=== PATIENT | male | born 1980 | race Caucasian/White ===

== ENCOUNTER → 2017-01-16 | Outpatient (CLI) | payer OTHER ==
[~2017-01-16] MED LIST: ACETAMINOPHEN PO; ACETAMINOPHEN325 MG PEG; ACID CONTROL150 M1 PO; ANTI-DANDRUFF251 ML TOP; CALCIUM CITRATE1 T12 PO; CARDURA2 MG PO; CECLOR; CEFTIN PO; CITRACAL + D CA1 TA1 PO; CITRACAL + D E1 EACH PEG; CLONAZEPAM0.5 MG PEG; COLACE; DEPAKOTE PO; DHEA PO; DIASTAT ACUDIA1 EAC1 PR; DIASTAT10 MG PR; DILANTIN50 MG PEG; DILANTIN50 MG PO; DOXAZOSIN MESYLA4 MG PEG; FLEET ENEMA133 M1 PR; FLOMAX0.4 M1 PO; GAS RELIEF125 MG PEG; GAS-X ULTRA ST180 MG PO; IMMUNOTHERAPY SUBCON; JEVITY 1.5 CAL237 ML PEG; KEPPRA1000 MG PO; KEPPRA500 M2 PO; KEPPRA500 MG PO; KEPPRA750 MG; KLONOPIN; KLONOPIN0.5 M3 PO; KLOR-CON PO; LACTULOSE10 G/15 M2 PO; LACTULOSE10 GM/15 M PEG; LAMICTAL; LAMICTAL PO; LAMOTRIGINE100 MG PEG; LAMOTRIGINE200 MG PEG; LAMOTRIGINE25 M1 PEG; LEVETIRACETAM1000 MG PEG; LUNESTA PO; LYRICA; MELATONIN1 MG PO; MELATONIN5 M1 PEG; MELATONIN5 M1 PO; MILK OF MAGNESIA; MILK OF MAGNESIA PEG; MILK OF MAGNESIA PO; MIRALAX17 GM PO; MYLANTA400 MG; NATURAL SENNA8.6 MG; NEXIUM20 MG PO; ONFI10 MG PEG; ONFI10 MG PO; ONFI20 MG PEG; PANOXYL156 GM TOP; PEG3350510 GM PEG; PHENOBARB PO; PHENOBARBITAL97.2 MG PEG; POTASSIUM CHLO20 ME2 PEG; PRILOSEC; RANITIDINE HCL150 M1 PEG; SABRIL500 M1 PO; SABRIL500 MG PEG; SABRIL500 MG PO; SENNA PO; SENNA-LAX8.6 M1 PO; SENNA8.6 M1 PEG; SINGULAIR PO; SOD BICARBONATE PEG; SODIUM BICARBO650 MG PO; THERA DERM TOP; THERA-TABS M C1 EACH PO; THERAGRAN1 TAB PO; THERAPEUTIC VI1 EACH PO; TOPAMAX PO; TOPICAINE113 GM TOP; TRIPLE ANTIBIOT14 GM TOP; TYLENOL325 M1 PO; VITAMIN D1000 UNI1 PO; VITAMIN D1000 UNIT PEG; WATER3780 ML PEG; ZONEGRAN100 M1 PEG; ZONEGRAN100 M1 PO; ZONEGRAN100 MG; ZYRTEC10 M1 PEG; ZYVOX600 MG PO; [UNRECOGNIZED DRUG - OTHER] PO; [UNRECOGNIZED DRUG - OTHER] PR
--- NOTE | ~2017-01-16 | XA166 ---
[facility] A Service of [facility] RADIOLOGY TEXT RESULTS PATIENT: LUTHER RAMIREZ LOCATION: CIVR : 81 UNIT #: [id number] AGE: [address]: Eliu Salamanca MD SEX: M ORDER DR: [id number] [place] [id number] [facility]. [place], [place] [address] [id number] O MR#: [id number] Acc #: [id number] NAME: LUTHER RAMIREZ : 1980 SEX: M STUDY DATE/TIME: 01/16/2017 11:34 [facility] ROOM: STUDY DESCRIPTION: XA PICC Line Placement WO Port Attending Physician: Eliu Salamanca Sr., M.D. Ordering Physician: Eliu Salamanca Sr., M.D. Primary Care Physician: No Primary Care Physician MEDICAL IMAGING REPORT This report is preliminary unless electronic signature is present EXAM Right-sided PICC line placement INDICATION Need for IV antibiotics in a patient with the history of aspiration pneumonia. PRE-PROCEDURE The procedure was explained to the patient and/or patient patient relations representative including risks, benefits, potential complications and potential for alternative forms of treatment. Informed consent was obtained, and prior to initiating the procedure a formal timeout procedure was performed. PROCEDURE Using full standard sterile barrier technique, including caps, gowns, gloves, masks, as well as sterile skin preparation and standard sterile draping, the right arm was prepped and draped in the usual fashion, and real-time sterile ultrasound guidance was used to localize an arm vein and to confirm vessel patency. A hard copy ultrasound image was recorded. After local anesthesia with 1% Xylocaine, the vein was punctured using real-time sterile ultrasound guidance, and an 0.018 guidewire was advanced into the superior vena cava, using fluoroscopic guidance. A 4-Zambian single lumen PICC was then measured and deployed with the tip positioned in the superior vena cava. The position of the line was documented with a radiographic image. The line was secured in place with an adhesive dressing and an antibiotic patch was applied. Total fluoro time was 0.2 minutes and a single fluoroscopic image was obtained. IMPRESSION Successful placement of a 4-Zambian single lumen PowerPICC via the arm under ultrasound and fluoroscopic guidance. The tip of the PICC is in good position in the superior vena cava. [facility] A Service of [facility] RADIOLOGY TEXT RESULTS PATIENT: LUTHER RAMIREZ LOCATION: [facility] #: [id number] : [birth year] UNIT #: [id number] AGE: [address]: Eliu Salamanca MD SEX: M ORDER DR: Dictated by... Loretta Guevara M.D. THIS IS AN ELECTRONICALLY VERIFIED REPORT Loretta Guevara M.D. at 01/19/2017 5:12 PM AFF/aa TD: 01/19/2017 09:52 JOB #: [id number] MEDICAL IMAGING REPORT COPY
== END | disposition home or self-care (01) ==
LOC: CIVR 10:28
PROC: 02HV33Z Insertion of Infusion Device into Superior Vena Cava, Percutaneous Approach (ICD-10-PCS; principal; 2017-01-16)
DX: Z45.2 Encounter for adjustment and management of vascular access device (principal); B95.62 Methicillin resistant Staphylococcus aureus infection as the cause of diseases classified elsewhere; L03.313 Cellulitis of chest wall
CPT/HCPCS: 76937; 77001; C1751; J1642

== ENCOUNTER → 2017-01-27 | Outpatient (CLI) | payer OTHER ==
--- NOTE | ~2017-01-27 | XA166 ---
[facility] A Service of [facility] RADIOLOGY TEXT RESULTS PATIENT: LUTHER RAMIREZ LOCATION: CIVR : 81 UNIT #: [id number] AGE: [address]: DINAH PIKE SEX: M ORDER DR: [id number] [facility] [address] [facility]. [place], [place] [address] [id number] O MR#: [id number] Acc #: [id number] NAME: LUTHER RAMIREZ : 1980 SEX: M STUDY DATE/TIME: 01/27/2017 12:01 [facility] RO[facility]: STUDY DESCRIPTION: XA PICC Line Placement WO Port Attending Physician: Dinah Pike Ordering Physician: Eliu Salamanca Sr., M.D. Primary Care Physician: No Primary Care Physician MEDICAL IMAGING REPORT This report is preliminary unless electronic signature is present EXAM PICC placement with ultrasound and fluoroscopic guidance HISTORY Venous access needed TECHNIQUE Informed consent was obtained from the patient's instruments sales representative. Full barrier sterile technique was employed via standard protocol. FINDINGS Using full barrier sterile technique and following local anesthesia with 1% Xylocaine, a brachial vein on the right was punctured with ultrasound guidance. Ultrasound was used to confirm vessel patency which was confirmed and permanent ultrasound images were recorded. An 0.018 Guidewire was passed into the superior vena cava under fluoroscopic guidance. A dilator and sheath were placed over the wire. A 4 Mozambican single lumen PICC was measured to 38 cm, cut and deployed with the tip positioned in the mid to lower superior vena cava in satisfactory position. The wire was secured in placed with an antibiotic patch and adhesive dressing. Total fluoroscopy time 0.2 minutes. IMPRESSION Successful placement of a 4 Mozambican single lumen PICC via the right brachial vein above the elbow with ultrasound and fluoroscopic guidance. The tip of the PICC is in good position in the mid to lower superior vena cava. Dictated by... Joseph Barreto M.D. [facility] A Service of [facility] RADIOLOGY TEXT RESULTS PATIENT: LUTHER RAMIREZ LOCATION: CIVR : 81 UNIT #: [id number] AGE: [address]: DINAH PIKE SEX: M ORDER DR: THIS IS AN ELECTRONICALLY VERIFIED REPORT Joseph Barreto M.D. at 01/28/2017 4:42 PM ROB/chato TD: 01/27/2017 16:49 JOB #: [id number] MEDICAL IMAGING REPORT COPY
== END | disposition home or self-care (01) ==
LOC: CIVR 09:42
DX: Z45.2 Encounter for adjustment and management of vascular access device (principal); Z79.2 Long term (current) use of antibiotics
CPT/HCPCS: 76937; 77001; J1642

== ENCOUNTER → 2017-01-28 | Outpatient (CLI) | payer OTHER ==
--- NOTE | ~2017-01-28 | XA166 ---
[facility] A Service of [facility] RADIOLOGY TEXT RESULTS PATIENT: LUTHER RAMIREZ LOCATION: CIVR : 81 UNIT #: [id number] AGE: [address]: DINAH REYES SEX: M ORDER DR: [id number] [facility] [address] [place], [place] [address] [id number] O MR#: [id number] Acc #: [id number] NAME: LUTHER RAMIREZ : 1980 SEX: M STUDY DATE/TIME: 01/28/2017 12:51 UNIT: CIVR ROOM: STUDY DESCRIPTION: XA PICC Line Placement WO Port Attending Physician: Dinah Reyes Referring Physician: Dinah Reyes Ordering Physician: Casey Reis M.D. Primary Care Physician: Dinah Reyes MEDICAL IMAGING REPORT This report is preliminary unless electronic signature is present EXAM PICC placement with ultrasound and fluoroscopic guidance HISTORY The patient's PICC was pulled by the patient earlier today. TECHNIQUE The procedure was explained to the patient's father and informed consent was obtained. Full barrier sterile technique was employed via standard protocol. Using full barrier sterile technique and following local anesthesia with 1% Xylocaine, a brachial vein was punctured above the elbow on the right with ultrasound guidance. Ultrasound was used to confirm vessel patency, which was confirmed, and permanent ultrasound images were recorded. An 0.018 guidewire was passed into the superior vena cava under fluoroscopic guidance. A dilator and sheath were placed over the wire. A 4-Citizen Of [place] single-lumen PICC was measured to 37 cm, cut and deployed, with the tip positioned in the upper right atrium. The line was secured in place with an adhesive dressing and antibiotic patch. Total fluoroscopy time is 0.2 minutes with a total dose of 1 mGy. IMPRESSION Successful placement of a 4-Citizen Of [place] single-lumen PICC via the right brachial vein above the elbow with ultrasound and fluoroscopic guidance. Dictated by... Joseph Barreto M.D. THIS IS AN ELECTRONICALLY VERIFIED REPORT Joseph Barreto M.D. at 01/29/2017 8:39 AM ROB/tammy TD: 01/28/2017 20:46 [facility] A Service of [facility] RADIOLOGY TEXT RESULTS PATIENT: LUTHER RAMIREZ [facility] #: [id number] : 81 UNIT #: [id number] AGE: [address]: DINAH REYES SEX: M ORDER DR: JOB #: [id number] MEDICAL IMAGING REPORT COPY
== END | disposition home or self-care (01) ==
LOC: CIVR 11:46
DX: Z45.2 Encounter for adjustment and management of vascular access device (principal); Z79.2 Long term (current) use of antibiotics
CPT/HCPCS: 76937; 77001; C1751; J1642

== ENCOUNTER 2017-02-15 11:42 | Emergency (ER) | payer OTHER ==
[~2017-02-15 11:42] MED LIST changes: -ACETAMINOPHEN325 MG PEG; -CITRACAL + D E1 EACH PEG; -CLONAZEPAM0.5 MG PEG; -DIASTAT ACUDIA1 EAC1 PR; -DILANTIN50 MG PEG; -DOXAZOSIN MESYLA4 MG PEG; -GAS RELIEF125 MG PEG; -JEVITY 1.5 CAL237 ML PEG; -LACTULOSE10 GM/15 M PEG; -LAMOTRIGINE100 MG PEG; -LAMOTRIGINE200 MG PEG; -LAMOTRIGINE25 M1 PEG; -LEVETIRACETAM1000 MG PEG; -MELATONIN5 M1 PEG; -MILK OF MAGNESIA PEG; -ONFI10 MG PEG; -ONFI20 MG PEG; -PEG3350510 GM PEG; -PHENOBARBITAL97.2 MG PEG; -POTASSIUM CHLO20 ME2 PEG; -RANITIDINE HCL150 M1 PEG; -SABRIL500 MG PEG; -SENNA8.6 M1 PEG; -SOD BICARBONATE PEG; -THERAPEUTIC VI1 EACH PO; -TOPICAINE113 GM TOP; -TRIPLE ANTIBIOT14 GM TOP; -VITAMIN D1000 UNIT PEG; -WATER3780 ML PEG; -ZONEGRAN100 M1 PEG; -ZYRTEC10 M1 PEG
== END 2017-02-15 13:55 ==
LOC: CED 11:42
DX: S01.82XA Laceration with foreign body of other part of head, initial encounter (principal); J45.909 Unspecified asthma, uncomplicated; W19.XXXA Unspecified fall, initial encounter; Y92.89 Other specified places as the place of occurrence of the external cause
CPT/HCPCS: 12011; 99283

== ENCOUNTER 2017-03-07 14:43 | Emergency (ER) | payer OTHER ==
--- NOTE | ~2017-03-07 | CT71 ---
[facility] A Service of [facility] RADIOLOGY TEXT RESULTS PATIENT: LUTHER RAMIREZ LOCATION: [facility] : 81 UNIT #: [id number] AGE: [address]: Isaias Sullivan MD SEX: M ORDER DR: [id number] [facility] [address] [facility]. [place], [place] [address] [id number] E MR#: [id number] Acc #: [id number] NAME: LUTHER RAMIREZ : 1980 SEX: M STUDY DATE/TIME: 03/07/2017 15:08 UNIT: [facility] ROOM: STUDY DESCRIPTION: CT Head Wo Contrast Attending Physician: Isaias Sullivan M.D. Ordering Physician: Isaias Sullivan M.D. Primary Care Physician: Dinahroseline Lutzsola [facility] IMAGING REPORT This report is preliminary unless electronic signature is present EXAM Head CT without contrast. DATE OF EXAM 03/07/2017 HISTORY Head trauma, status post fall today, headache with laceration over the left eyebrow, status post seizure. TECHNIQUE NOTE: This CT exam was performed with one or more of the following radiation dose reduction techniques: automatic exposure control, adjustment of mA and/or kV according to patient size, and iterative reconstruction. FINDINGS Multiple axial images were obtained from the skull base to vertex without intravenous contrast administration. Prior right frontotemporal craniotomy is noted. 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 There is mild generalized atrophy. There is no evidence of midline shift. No intra or extraaxial fluid collections are seen. The visualized paranasal sinuses are clear. IMPRESSION Prior right frontal toe temporal craniotomy with encephalomalacia in the right temporal lobe and the region of the anterior aspect of the corpus callosum. No acute intracranial abnormality is seen. Dictated by... David Fortune M.D. [facility] A Service of [facility] RADIOLOGY TEXT RESULTS PATIENT: LUTHER RAMIREZ LOCATION: [facility] : 81 UNIT #: [id number] AGE: [address]: Isaias Sullivan MD SEX: M ORDER DR: THIS IS AN ELECTRONICALLY VERIFIED REPORT David Fortune M.D. at 03/08/2017 1:12 PM HARLAN/lilibeth TD: 03/07/2017 17:45 JOB #: [id number] MEDICAL IMAGING REPORT Page 1 of 1 COPY
--- NOTE | ~2017-03-07 | CT101 ---
[facility] A Service [facility] RADIOLOGY TEXT RESULTS PATIENT: LUTHER RAMIREZ LOCATION: [facility] : 81 UNIT #: [id number] AGE: [address]: Isaias Sullivan MD SEX: M ORDER DR: [id number] [place] [id number] [facility]. [place], [place] [address] [id number] E MR#: [id number] Acc #: [id number] NAME: LUTHER RAMIREZ : 1980 SEX: M STUDY DATE/TIME: 03/07/2017 15:11 UNIT: [facility] ROOM: STUDY DESCRIPTION: CT Maxillofacial Area Wo Cont Attending Physician: Isaias Sullivan M.D. Ordering Physician: Isaias Sullivan M.D. Primary Care Physician: Dinah Lutzsola [facility] IMAGING REPORT This report is preliminary unless electronic signature is present EXAM CT facial bones without contrast. DATE OF EXAM 03/07/2017 HISTORY Fell and hit head today. Laceration over left eye. TECHNIQUE NOTE: This CT exam was performed with one or more of the following radiation dose reduction techniques: automatic exposure control, adjustment of mA and/or kV according to patient size, and iterative reconstruction. FINDINGS CT facial bones without contrast is slightly degraded by motion. No fractures identified. No opaque soft tissue foreign body. The paranasal sinuses are clear. No sinus opacification or air-fluid level. Moderate nasal septal deviation to the left. IMPRESSION 1. No fractures identified. 2. No opaque soft tissue foreign body. 3. Moderate nasal septal deviation to the left. Dictated by... Juan Luis Parry M.D. THIS IS AN ELECTRONICALLY VERIFIED REPORT Juan Luis Parry M.D. at 03/07/2017 11:23 PM [facility] A Service [facility] RADIOLOGY TEXT RESULTS PATIENT: LUTHER RAMIREZ LOCATION: [facility] : 81 UNIT #: [id number] AGE: [address]: Isaias Sullivan MD SEX: M ORDER DR: Marisa TD: 03/07/2017 18:22 JOB #: [id number] MEDICAL IMAGING REPORT Page 1 of 1 COPY
--- NOTE | ~2017-03-07 | CT52 ---
[facility] Service [facility] RADIOLOGY TEXT RESULTS PATIENT: LUTHER RAMIREZ LOCATION: [facility] : 81 UNIT #: [id number] AGE: [address]: Isaias Sullivan MD SEX: M ORDER DR: [id number] [place] [id number] [facility]. [place], [place] [address] [id number] E MR#: [id number] Acc #: [id number] NAME: LUTHER RAMIREZ : 1980 SEX: M STUDY DATE/TIME: 03/07/2017 15:18 UNIT: [facility] ROOM: STUDY DESCRIPTION: CT Cervical Spine Wo Cont Attending Physician: Isaias Sullivan M.D. Ordering Physician: Isaias Sullivan M.D. Primary Care Physician: Dinahroseline Lutzsola [facility] IMAGING REPORT This report is preliminary unless electronic signature is present EXAM CT cervical spine without contrast. DATE OF EXAM 03/07/2017 HISTORY Fell today. Neck pain. TECHNIQUE NOTE: This CT exam was performed with one or more of the following radiation dose reduction techniques: automatic exposure control, adjustment of mA and/or kV according to patient size, and iterative reconstruction. FINDINGS CT cervical spine without contrast demonstrates satisfactory cervical alignment. No fractures identified. Sensitivity is partly limited by slight motion artifact. Small left posterolateral marginal osteophyte at C3-4 causes minimal left outlet foraminal narrowing. No fracture, disc space narrowing or subluxation. No precervical soft tissue swelling. IMPRESSION 1. No acute finding. 2. No fracture. 3. Small left posterolateral marginal osteophyte at C3-4 causes minimal left outlet foraminal narrowing. Dictated by... Juan Luis Parry M.D. [facility] A Service [facility] RADIOLOGY TEXT RESULTS PATIENT: LUTHER RAMIREZ LOCATION: [facility] : 81 UNIT #: [id number] AGE: [address]: Isaias Sullivan MD SEX: M ORDER DR: THIS IS AN ELECTRONICALLY VERIFIED REPORT Juan Luis Parry M.D. at 03/07/2017 11:23 PM CHANG/lilibeth TD: 03/07/2017 18:25 JOB #: [id number] MEDICAL IMAGING REPORT Page 1 of 1 COPY
== END 2017-03-07 19:16 | disposition home or self-care (01) ==
LOC: CED 14:43
DX: S01.112A Laceration without foreign body of left eyelid and periocular area, initial encounter (principal); Z79.899 Other long term (current) drug therapy; Z88.2 Allergy status to sulfonamides; Z88.1 Allergy status to other antibiotic agents; Z88.8 Allergy status to other drugs, medicaments and biological substances; W01.0XXA Fall on same level from slipping, tripping and stumbling without subsequent striking against object, initial encounter; Y92.129 Unspecified place in nursing home as the place of occurrence of the external cause
CPT/HCPCS: 12013; 70450; 70486; 72125; 99284

== ENCOUNTER 2017-03-13 16:07 | Inpatient (IN) | payer OTHER ==
--- NOTE | ~2017-03-13 | CO ---
Unit #: [id number] #: [id number] Patient: LUTHER DUNN [id number] [address] [place], [place] [address] [id number] I MR#: [id number] NAME: LUTHER DUNN ROOM: [facility] Age: 37 Sex: M Admission Date: 03/13/2017 : 1980 Attending Physician: Dave Hansen M.D. Primary Care Physician: Dinah Pike Consultation Date: 03/25/2017 CONSULTATION REPORT REASON FOR CONSULTATION Evaluate for a PEG tube placement for bypass feeds. MANAGER TRAFFIC Dr. De La Vega. Thank you very much for asking us to see Mr. Dunn. HISTORY OF PRESENT ILLNESS He is a 36-year-old white male who is significantly mentally retarded and was a resident of [place]. He has multiple medical problems. He was admitted for pneumonia. He has been admitted several times in the past. He had a swallowing study today which revealed silent aspiration and recommendation was made for bypass feeds via a feeding tube. The patient presents at this time for further evaluation. PAST MEDICAL HISTORY Seizure disorder, Lennex-Gastout syndrome, cerebral palsy, mental retardation, aspiration pneumonia, craniotomy, myringotomy, lobectomy, G-tube placement in the past, KELP GATHERER shunt placement and removal. SOCIAL HISTORY [place]. FAMILY HISTORY Noncontributory. ALLERGIES Sulfa, Carbamazepine, ampicillin, Bactrim and gabapentin. MEDICATIONS Please see medication reconciliation sheet. PHYSICAL EXAMINATION GENERAL APPEARANCE: A well-developed white male who appears to be in no apparent distress, awake, alert and oriented. VITAL SIGNS: Temperature 98.8. Pulse 91. Respiration 19. Blood pressure 122/69. NECK: Supple. No thyromegaly or adenopathy. BACK: No CVA or spinous tenderness. ABDOMEN: Flat, soft, nontender. Multiple well-healed incisions. DIAGNOSTIC STUDIES LABORATORY: Studies reveal a normal BMP, white count of 10.3, hemoglobin Unit #: [id number] #: [id number] Patient: LUTHER DUNN 9.5, hematocrit 29.8 and normal coags. IMPRESSION We agree with the need for bypass feeds for nutritional support. Dr. De La Vega has discussed with the patient's family regarding PEG tube placement. I will proceed tomorrow or Thom. Thank you very much for this consultation. We appreciate it. Dictated by... Joe Mohr TD: 03/26/2017 06:17 JOB #: [id number] CONSULTATION REPORT Page 1 of 1 X Jose De Jesus Thomas MD X CONSULTATION REPORT
--- NOTE | ~2017-03-13 | CR72 ---
[facility] A Service of [facility] RADIOLOGY TEXT RESULTS PATIENT: LUTHER RAMIREZ LOCATION: [address] : [birth year] UNIT #: [id number] AGE: [address]: Dave Hansen MD SEX: M ORDER DR: [id number] [facility] [address] [place], [place] [address] [id number] I MR#: [id number] Acc #: [id number] NAME: LUTHER RAMIREZ : 1980 SEX: M STUDY DATE/TIME: 03/20/2017 4:14 UNIT: [facility] ROOM: [facility] STUDY DESCRIPTION: CR Chest Single View Portable Attending Physician: Dave Hansen M.D. Ordering Physician: Vitor Scherer M.D. Primary Care Physician: Dinah Pike MEDICAL IMAGING REPORT This report is preliminary unless electronic signature is present EXAM Single view chest INDICATIONS Shortness of air and respiratory failure. 7-day duration. FINDINGS Single portable AP view of the chest compared to 03/19/2017 and 03/18/2017. Support lines and tubes are unchanged. Heart and mediastinal contours are stable. Bibasilar airspace opacities and/or effusions are similar to the prior study. No pneumothorax. IMPRESSION No interval change. Dictated by... Jeremy Santana M.D. THIS IS AN ELECTRONICALLY VERIFIED REPORT Jeremy Santana M.D. at 03/20/2017 8:08 AM Albina TD: 03/20/2017 07:21 JOB #: [id number] MEDICAL IMAGING REPORT Page 1 of 1 COPY
--- NOTE | ~2017-03-13 | DS ---
Unit #: [id number] #: [id number] Patient: LUTHER DUNN [id number] [address] [place], [place] [address] [id number] I MR#: [id number] NAME: LUTHER DUNN ROOM: [facility] Age: 37 Sex: M Admission Date: 03/13/2017 : 1980 Discharge Date: 03/30/2017 Attending Physician: Dave Hansen M.D. Primary Care Physician: Dinah Pike DISCHARGE SUMMARY FINAL DIAGNOSES 1. Fever which has resolved status post line change. 2. Pseudomonas pneumoniae status post treatment. 3. Diarrhea, Clostridium difficile is negative. 4. Dysphagia status post percutaneous endoscopic gastrostomy placement by Dr. Scott. 5. Seizure disorder. 6. History of Lc-Gastaut syndrome. 7. History of cerebral palsy. 8. History of profound mental retardation. 9. History of aspiration pneumonitis in the past. DISCHARGE MEDICATIONS Please note, continue home medication because all the antibiotics have been discontinued at this time. The patient has completed the course of antibiotics. Discharge medications are: 1. Potassium 20 mEq daily. 2. Calcium citrate one tablet daily. 3. Melatonin 4 mg at bedtime. 4. Multivitamin daily. 5. Sabril 1,500 mg b.i.d. 6. PanOxyl 156 g topically b.i.d. 7. Ranitidine 150 mg b.i.d. 8. Fleet Enema as needed. 9. Cardura 2 mg at bedtime. 10. Phenytoin 150 mg b.i.d. 11. MiraLax 17 g daily. 12. Milk of magnesia 15 mL at bedtime. 13. Diastat p.r.n. basis for seizure. 14. Klonopin 0.5 mg p.o. p.r.n. 15. Phenobarb 64.8 mg at bedtime. 16. Zonegran 300 mg b.i.d. 17. Keppra 1,500 mg every morning and 2,000 mg at bedtime. 18. Lamictal 325 mg b.i.d. 19. Onfi 25 mg b.i.d. Continue home dose. 20. Tylenol 650 mg q.6 p.r.n. 21. Lactulose 30 mL every evening. 22. Flomax 0.4 mg daily. 23. Sodium bicarb 650 mg b.i.d. HOSPITAL COURSE Mr. Luther Dunn is a 76-year-old male who is a resident of [facility], has a history of cerebral palsy, profound mental retardation, seizure disorder, was admitted because of increasing lethargy and Unit #: [id number] #: [id number] Patient: LUTHER DUNN hypoxemic. The patient was admitted to ICU for respiratory failure. The patient was found to have Pseudomonas pneumoniae. Dr. Scherer was consulted and the patient was treated with IV antibiotics. The patient has completed a course of antibiotics. The patient was in ICU for a few days. The patient continued to have aspiration. He failed speech eval, discussed with patient's family and a PEG tube was placed, as family was agreeable. The patient had diarrhea for two to three days. C. diff. was done which was negative. The patient is stable to be discharged back to [facility]. VITAL SIGNS ON DISCHARGE: Blood pressure is 129/82. Respiratory rate 17. Pulse 75. Temperature 98.5. Oxygen saturation 97%. HEAD: Normocephalic. CHEST: Decreased air entry bilateral bases. CARDIOVASCULAR: Regular rhythm. ABDOMEN: PEG tube is in place. DISCHARGE INSTRUCTIONS 1. The patient is being discharged home in stable condition. 2. Follow up pulmonary clinic, Dr. Watkins, in one week. Dictated by... Joe Hawley TD: 03/30/2017 14:10 JOB #: [id number] DISCHARGE SUMMARY Page 1 of 1 X Lisa De La Vega MD X DISCHARGE SUMMARY
--- NOTE | ~2017-03-13 | CR6 ---
[facility] A Service of [facility] RADIOLOGY TEXT RESULTS PATIENT: LUTHER RAMIREZ [facility] [birth year] UNIT #: [id number] AGE: [address]: Dave Hansen MD SEX: M ORDER DR: [id number] [facility] [address] [facility]. [place], [place] [address] [id number] I MR#: [id number] Acc #: [id number] NAME: LUTHER RAMIREZ : 1980 SEX: M STUDY DATE/TIME: 03/13/2017 16:25 UNIT: [facility] ROOM: [id number] STUDY DESCRIPTION: CR Abdomen Portable Sng View Attending Physician: Dave Hansen M.D. Ordering Physician: Ritu Calzada M.D. Primary Care Physician: Dinah Pike MEDICAL IMAGING REPORT This report is preliminary unless electronic signature is present EXAM Portable abdomen HISTORY NG tube placement. FINDINGS The NG tube is coiled within the stomach. Bowel gas pattern is remarkable for a large amount of fecal residue throughout the colon Dictated by... Vitor Madrid M.D. THIS IS AN ELECTRONICALLY VERIFIED REPORT Vitor Madrid M.D. at 03/16/2017 7:20 AM CANDIS/chato TD: 03/13/2017 23:43 JOB #: [id number] MEDICAL IMAGING REPORT Page 1 of 1 COPY
--- NOTE | ~2017-03-13 | CO ---
Unit #: [id number] #: [id number] Patient: LUTHER DUNN [id number] [address] [place], [place] [address] [id number] I MR#: [id number] NAME: LUTHER DUNN ROOM: [facility] Age: 36 Sex: M Admission Date: 03/13/2017 : 1980 Attending Physician: Dave Hansen M.D. Primary Care Physician: Dinah Pike Consultation Date: 03/14/2017 CONSULTATION REPORT REASON FOR CONSULTATION Respiratory failure. HISTORY OF PRESENT ILLNESS Mr. Dunn is a 36-year-old gentleman, who has cerebral palsy, mental retardation, [place]-Gastaut syndrome and severe seizure disorder, who presents with increased lethargy. He apparently was hypoxemic in the emergency room. Chest x-ray suggested pneumonia. He ultimately required intubation. He currently is in the intensive care unit, sedated. Initial trials of intermittent sedation were ineffective and he now is on propofol. PAST MEDICAL HISTORY Severe seizure disorder, [place]-Gastaut syndrome, cerebral palsy, mental retardation, history of right temporal lobectomy. He did have a vagus nerve stimulator, but that has been removed. MEDICATIONS Include Cardura, a variety of bowel prep medications, potassium, Lamictal, Keppra, Onfi, ranitidine, Sabril, Dilantin, Klonopin. ALLERGIES Sulfa, carbamazepine, ampicillin, Ambien, gabapentin, trazodone, unknown reactions. SOCIAL HISTORY He resides at [facility]. FAMILY HISTORY Unobtainable. REVIEW OF SYSTEMS Unobtainable. PHYSICAL EXAMINATION GENERAL: Gentleman appears comfortable on moderate dose of propofol on the ventilator. He has a T-max of 101, fever curve appears to be improved, pulse is 110, respiratory rate is 22, blood pressure is 92/60. HEENT: Pupils are equal, round, and reactive to light. Sclerae anicteric. Head atraumatic. NECK: Supple. No supraclavicular or cervical adenopathy appreciated. Orally intubated. CHEST: Equal breath sounds. A few scattered rhonchi. No definite wheeze or stridor. CARDIAC: Reveals regular rate and rhythm. No pathologic murmur, rub, or Unit #: [id number] #: [id number] Patient: LUTHER DUNN. ABDOMEN: Soft and nontender. No hepatomegaly or rebound. EXTREMITIES: Reveal no clubbing, cyanosis, or edema. No calf tenderness. He does have contractures. Cannot cooperate with a neurologic exam. DIAGNOSTIC STUDIES IMAGING STUDIES: Chest x-ray; ET tube in adequate position. Bilateral infiltrates in left lower lobe greater than right. LABORATORY RESULTS: Initial arterial blood gas; pH is 7.29, pCO2 of 53, pO2 of 274 on the ventilator. Repeat blood gases with minor adjustments; pH 7.34, pCO2 of 45, pO2 of 82 on assist control of 22, 550, 60%, 5 of PEEP. BUN 19, creatinine 0.9. Lactic acid 1.4. INR normal. Cardiac enzymes, normal. White blood cell count of 12.8, hemoglobin 13.3, platelet count 308. Urinalysis fairly unremarkable. Blood cultures performed and are pending. No sputum has been obtained despite an order in the past. Sputum has shown MRSA, sensitive to vancomycin. CARDIOVASCULAR STUDIES: EKG; sinus tachycardia. IMPRESSION 1. Respiratory failure. 2. Pneumonia, consider Gram-negative rods and methicillin-resistant Staphylococcus aureus. 3. Mental retardation/cerebral palsy. 4. Severe seizure disorder, requiring multiple antiepileptics. 5. Constipation, etc. PLAN Mechanical vent for support. Broad-spectrum antibiotics. Panculture. Follow up cultures and adjust antibiotics as needed. Feeding will be started and some of his antiseizure medicines will be restarted as well. Thank you very much for allowing me to participate in the care of Mr. Dunn. Dictated by... Vitor Scherer M.D. DREA/edvin TD: 03/15/2017 01:29 JOB #: [id number] CONSULTATION REPORT Page 1 of 1 X Vitor Scherer MD CONSULTATION REPORT
--- NOTE | ~2017-03-13 | CR72 ---
[facility] A Service of [facility] & [facility] RADIOLOGY TEXT RESULTS PATIENT: LUTHER RAMIREZ LOCATION: [address] : [birth year] UNIT #: [id number] AGE: [address]: Dave Hansen MD SEX: M ORDER DR: [id number] [facility] [address]. [place], [place] [address] [id number] I MR#: [id number] Acc #: [id number] NAME: LUTHER RAMIREZ : 1980 SEX: M STUDY DATE/TIME: 03/15/2017 4:00 UNIT: [facility] ROOM: [facility] STUDY DESCRIPTION: CR Chest Single View Portable Attending Physician: Dave Hansen M.D. Ordering Physician: Vitor Scherer M.D. Primary Care Physician: Dinah Pike MEDICAL IMAGING REPORT This report is preliminary unless electronic signature is present EXAM Portable chest INDICATIONS Follow up endotracheal tube and infiltrates. FINDINGS Today's portable view of the chest is compared with yesterday's study. The endotracheal tube, central venous catheter and nasogastric tube are all stable and the bilateral fairly diffuse infiltrates are unchanged. Dictated by... Andrea Malik M.D. THIS IS AN ELECTRONICALLY VERIFIED REPORT Andrea Malik M.D. at 03/15/2017 9:55 PM FEL/psc TD: 03/15/2017 19:38 JOB #: [id number] MEDICAL IMAGING REPORT Page 1 of 1 COPY
--- NOTE | ~2017-03-13 | CR7 ---
[facility] A Service [facility] RADIOLOGY TEXT RESULTS PATIENT: LUTHER RAMIREZ [facility]: [facility] [birth year] UNIT #: [id number] AGE: [address]: Dave Hansen MD SEX: M ORDER DR: [id number] [place], [place] [address] [id number] I MR#: [id number] Acc #: [id number] NAME: LUTHER RAMIREZ : 1980 SEX: M STUDY DATE/TIME: 03/17/2017 14:30 UNIT: [facility] ROOM: [facility] STUDY DESCRIPTION: CR Abdomen Single AP View Attending Physician: Dave Hansen M.D. Ordering Physician: Lisa De La Vega M.D. Primary Care Physician: Dinah Pike MEDICAL IMAGING REPORT This report is preliminary unless electronic signature is present EXAM AP abdomen. DATE OF EXAM 03/17/2017 INDICATIONS Constipation, abdominal distension for 1 week. COMPARISON 03/13/2017 FINDINGS The bowel gas pattern is nonobstructed. There is a large amount of stool within the rectosigmoid. There is also a large amount of stool in the ascending colon. IMPRESSION Large amount of stool in the rectosigmoid and ascending colon compatible with constipation. Nonobstructed bowel gas pattern. Dictated by... Luther Donohue M.D. THIS IS AN ELECTRONICALLY VERIFIED REPORT Luther Donohue M.D. at 03/18/2017 10:02 AM SANDI/lilibeth TD: 03/17/2017 17:46 JOB #: [id number] MEDICAL IMAGING REPORT [facility] A Service [facility] RADIOLOGY TEXT RESULTS PATIENT: LUTHER RAMIREZ [facility]ATION: [facility] : 81 UNIT #: [id number] AGE: [address]: Dave Hansen MD SEX: M ORDER DR: Page 1 of 1 COPY
--- NOTE | ~2017-03-13 | CR72 ---
[facility] A Service of [facility] & [facility] RADIOLOGY TEXT RESULTS PATIENT: LUTHER RAMIREZ LOCATION: [place] [address]19 : [birth year] UNIT #: [id number] AGE: [address]: Dave Hansen MD SEX: M ORDER DR: [id number] [facility] [address] [place], [place] [address] [id number] I MR#: [id number] Acc #: [id number] NAME: LUTHER RAMIREZ : 1980 SEX: M STUDY DATE/TIME: 03/24/2017 4:58 UNIT: [facility] ROOM: [facility] STUDY DESCRIPTION: CR Chest Single View Portable Attending Physician: Dave Hansen M.D. Ordering Physician: Vitor Scherer M.D. Primary Care Physician: Dinah Pike MEDICAL IMAGING REPORT This report is preliminary unless electronic signature is present EXAM AP portable chest 03/24/2017 HISTORY Respiratory failure. Follow up cardiopulmonary status. TECHNIQUE AP portable chest x-ray. FINDINGS Diffuse patchy pulmonary infiltrates, greatest in the right lung base, unchanged since yesterday. Heart size normal. No visible pneumothorax or pleural effusion. NG tube has been removed. Left IJ central line remains in good position. IMPRESSION Stable portable chest radiograph, unchanged since yesterday. Dictated by... Prosper Quintanilla M.D. THIS IS AN ELECTRONICALLY VERIFIED REPORT Prosper Quintanilla M.D. at 03/24/2017 9:53 PM KATHLEEN/meka TD: 03/24/2017 07:13 JOB #: [id number] MEDICAL IMAGING REPORT Page 1 of 1 COPY
--- NOTE | ~2017-03-13 | CR72 ---
[facility] A Service of [facility] & [facility] RADIOLOGY TEXT RESULTS PATIENT: LUTHER RAMIREZ LOCATION: [address] : [birth year] UNIT #: [id number] AGE: [address]: Dave Hansen MD SEX: M ORDER DR: [id number] [facility] [address]. [place], [place] [address] [id number] I MR#: [id number] Acc #: [id number] NAME: LUTHER RAMIREZ : 1980 SEX: M STUDY DATE/TIME: 03/14/2017 8:45 UNIT: [facility] ROOM: [facility] STUDY DESCRIPTION: CR Chest Single View Portable Attending Physician: Dave Hansen M.D. Ordering Physician: Dave Hansen M.D. Primary Care Physician: Dinah Pike MEDICAL IMAGING REPORT This report is preliminary unless electronic signature is present EXAM Portable chest 03/14/2017 HISTORY Respiratory failure for 1 day. Ventilator. COMPARISON Chest 03/13/2017. FINDINGS Frontal chest demonstrates tubes and lines in stable position. No pneumothorax. No interval improvement in patchy bilateral pulmonary opacities. Heart size and mediastinum are stable. Suspected small left pleural effusion. IMPRESSION 1. Tubes and lines are stable. No pneumothorax. 2. No interval improvement in patchy bilateral pulmonary infiltrates and suspected small left pleural effusion Dictated by... Roldan Borjas M.D. THIS IS AN ELECTRONICALLY VERIFIED REPORT Roldan Borjas M.D. at 03/15/2017 8:13 AM POOJA/chato TD: 03/15/2017 01:59 JOB #: [id number] MEDICAL IMAGING REPORT Page 1 of 1 COPY
--- NOTE | ~2017-03-13 | A ---
[facility] Nutrition Therapy DATE: 03/14/17 Patient: LUTHER RAMIREZ Physician: OLIVE Address: [facility] Room/Bed: [address], Zip: [place] [address] Admit Date: 03/13/17 Date of : [birth year] Height: 5 1.70 Weight: 127 58 NUTRITIONAL ASSESSMENT: REASON: Seen for enteral nutrition recommmendations, intubated Admitting Dx: 36 y/o male admitted from [facility] with SOA, CALVIN PNA PMH: Mental retardation, Cerebral Palsy, Hyrum-Gastraut syndrome, seizure disorder, aspiration PNA, severe dysphagia s/p PEG placement Anthropometrics: Ht: 61", Wt: 58 kg, BMI: 23 (normal) Labs: Glucose 144, no Accucheks at this time Meds: Versed, Nacl, Keppra, Lactulose, Propofol @ 7 ml/hr (185 lipid kcals) I/O & Bowel function: LBM unknown Skin Integrity: Abdominal scars PEG site, non-blancheable redness coccyx/sacrum Estimated Nutrition Needs: 3464-7079 kcals per day (25-30 kcals/kg) 58-70 g protein (1-1.2 g/kg) Fluids consistent with kcal needs or per MD Assessment: Chart reviewed, events noted. Patient from [facility], see admitting dx and PMH as stated above. Patient is currently intubated and sedated with Propofol providing 185 lipid kcals. Patient has hx of severe dysphagia, I believe he is normally on a pureed diet with HTL at [facility] with enteral feeds per PEG, as this is is past nutrition regimen. RD previously assessed on 08/22/16- note reviewed. At that time the patient weighed 57 kg, showing stable weight hx. Currently Jevity 1.5 is running @ 20 ml/hr, goal per order is 40 ml/hr- agree with this goal rate while Propofol is running. See recs below, will follow hospital course. Dx: Inadequate enteral nutrition infusion r/t feeds not yet advanced AEB Jevity 1.5 @ 20 ml/hr (goal 40 ml/hr). Intervention: Increase EN rate to goal Monitoring, Evaluation and Goals: 1. EN consistent with estimated needs. 2. Prevent unintentional weight loss. 3. Labs WNL. [facility] Nutrition Therapy DATE: 03/14/17 Patient: LUTHER PEDROHEMALATHA Physician: OLIVE Address: [facility] Room/Bed: [address], Zip: [place] [address] Admit Date: 03/13/17 Date of : [birth year] Height: 5 1.70 Weight: 127 58 4. GI function WNL. Monitor: Per protocol, criteria to determine if above goals met Recommendations: 1. Agree with Jevity 1.5 goal rate of 40 ml/hr while Propofol is running. This nutrition regimen + 185 lipid kcals from Propofol at current rate will provide 1625 kcals, 61 g protein and 730 ml water. Once at goal rate add free water flushes per MD, suggest 175 ml q 4 hours. 2. If Propofol is D/C increase enteral feeds to new goal rate of 45 ml/hr to provide 1620 kcals, 69 g protein and 821 ml water. Free water flushes per MD, suggest 200 ml QID. 3. If extubated consult NURSE MONITORING to determine safety of PO intake. Advance oral diet per their recs only. If patient is started on an oral diet please consult RD so enteral nutrition needs can be re-calculated. If patient is to remain NPO continue enteral feeds over 24 hours/day as stated above. RD will follow hospital course Moderate nutrition risk Respectfully, Rebecca Hodge, CORI, LD [facility] cc: client file
--- NOTE | ~2017-03-13 | FU ---
[facility] Nutrition Therapy DATE: 03/17/17 Patient: LUTHER RAMIREZ Physician: OLIVE Address: [facility] Room/Bed: [address], Zip: [place] [address] Admit Date: 03/13/17 Date of : [birth year] Height: 5 1.70 Weight: 138 63 NUTRITION MONITORING/FOLLOW-UP: Reason: Enteral nutrition follow up Anthropometrics: Ht: 61" Adm wt: 58 kg BMI: 23 Wt 03/17: 63 kg Labs: Cl- 112 Gluc 112 Ca++ 7.8 Alb 2.1 ALT 9 Meds: Dilantin, lactulose, Propofol @ 8.7 mL/hr, MOM, vitamin D, sodium bicarbonate, Os-julisa + D, MVI, senokot, miralax, D5%, versed I&O's: 3936/2845, last BM unknown Skin: Sutures to left eyebrow Edema: Generalized- BL hands Trace- pedal/ ankle Estimated Nutrition Needs: 9051-4650 kcals (25-30 kcals/kg) 58-70 grams protein (1.0-1.2 grams/kg) Assessment: Chart reviewed, events noted. Pt remains intubated and sedated in the ICU. Propofol is providing an additional 230 kcals from lipids at this time. Of note, the pt's enteral regimen will need to be adjusted based on administration of Dilantin. Pt is receiving Jevity 1.5 at previously recommended goal rate of 40 mL/hr. Per pump history, the pt has received 70% of enteral goal volume over the past 24 hrs. RN reports no tolerance issues at this time. RD spoke with the pt's family, and reports that he does have a h/o PEG; however, he has not been receiving enteral nutrition, and only consuming nutrition PO as of late (Pureed diet with HTL). Family reports that the pt's PO intake is typically adequate. Please see recommendations below. Previous nutrition Dx with updated evidence. Dx: Inadequate enteral nutrition infusion RT enteral nutrition held AEB 70% goal volume received over 24 hrs. -ACTIVE Inadequate enteral nutriti Intervention: 1. Enteral nutrition as recommended below [facility] Nutrition Therapy DATE: 03/17/17 Patient: LUTHER RAMIREZ Physician: OLIVE Address: [facility] Room/Bed: [address], Zip: [place] [address] Admit Date: 03/13/17 Date of : [birth year] Height: 5 1.70 Weight: 138 63 Monitoring, Evaluation and Goals: 1. Enteral nutrition; provide >80% goal volume over 22 hrs 2. Labs; WNL 3. Weight; prevent unintentional weight loss 4. GI; promote bowel regularity Recommendations: 1. Recommending new enteral nutrition goal rate to account for holding EN for one hour before and one hour following administration of Dilantin (enteral nutrition will run for a total of 22 hrs per day). -With the current propofol rate (8.7 mL/hr), recommend Jevity 1.5 @ 40 mL/hr x 22 hrs + 30 mL Prostat once daily to provide: 1650 kcals/ 71 grams protein/ 669 grams protein -When propofol is discontinued, discontinue Prostat and increase Jevity 1.5 to 50 mL/hr x 22 hrs to provide: 1650 kcals/ 70 grams protein/ 836 mL free H20 2. If the pt is extubated, recommend SINGLE NEEDLE OPERATOR evaluation. Status: Pt is at moderate nutritional risk. RD will continue to follow. Respectfully, SHANIKA PAGE RD, LD Food and Nutritional Services [facility] cc: client file
--- NOTE | ~2017-03-13 | OR ---
Unit #: [id number] #: [id number] Patient: LUTHER RAMIREZ [id number] [facility]. [place], [place] [address] [id number] April MR#: [id number] NAME: LUTHER RAMIREZ ROOM: 575 Date of Procedure: 03/27/2017 Admission Date: 03/13/2017 Surgeon: Kaiser Scott III, M.D. : 1980 Attending Physician: Dave Hansen M.D. Primary Care Physician: Dinah Pike OPERATIVE REPORT PREOPERATIVE DIAGNOSIS Need for enteral access. POSTOPERATIVE DIAGNOSIS Need for enteral access. PROCEDURES PERFORMED Esophagogastroduodenoscopy and percutaneous endoscopic gastrostomy tube placement. ANESTHESIA MAC. SPECIMENS None. COMPLICATIONS None apparent. ESTIMATED BLOOD LOSS Minimal. INDICATIONS FOR PROCEDURE This is a 36-year-old gentleman from [place], who has undergone multiple PEG tube placements in the past. Unfortunately, he keeps trying to pull them out. There is a need for enteral access and we were requested to perform feeding tube placement. DESCRIPTION OF PROCEDURE After consent was obtained by his [id number], the endoscopy equipment was brought to the intensive care unit. He was sedated and I passed an EGD scope easily into the esophagus under direct visualization. He had normal peristalsis. No evidence of any erosions or esophagitis. There were no gross lesions in the stomach and no sign of any recent bleeding. The pylorus was patent, and the first and second portions of the duodenum were normal. I then was able to insufflate the stomach. I had good transillumination of the light through the anterior abdominal wall. I did elect to use a prior PEG tube site in case that he pulls this out again that hopefully this portion of the stomach was already scarred up to the abdominal wall, so that there would not be any sort of peritoneal contamination. This area was prepped and draped in standard surgical fashion. I injected the area with 1% plain lidocaine. I passed Unit #: [id number] #: [id number] Patient: LUTHER RAMIREZ a large bore needle into the stomach on the first pass. I was able to grasp the guidewire through the end of that and with a snare through the end of the scope and brought this out through the oropharynx. I then threaded a 20-Latvian gastrostomy tube over the wire and brought it out through the anterior abdominal wall after enlarging the exit site of the guidewire with an 11 blade. Once the tube was in good position, I did place the appropriate attachments. I did trim the tube much shorter than I normally do in order to that it can be better concealed under an abdominal binder, so that he would not pull it out. He tolerated the procedure without any problems. Dictated by... Kaiser Scott III, M.D. VCL/edvin TD: 03/28/2017 16:30 JOB #: [id number] OPERATIVE REPORT Page 1 of 1 X Kaiser Scott III, MD PROCEDURE OPERATIVE NOTE
--- NOTE | ~2017-03-13 | HP ---
Unit #: [id number] #: [id number] Patient: LUTHER DUNN [id number] [address] [place], [place] [address] [id number] I MR#: [id number] NAME: LUTHER DUNN ROOM: [facility] Age: 36 Sex: M Admission Date: 03/13/2017 : 1980 Attending Physician: Dave aHnsen M.D. Primary Care Physician: Dinah Pike HISTORY AND PHYSICAL REVISED REPORT CORRECTION MADE ADMISSION DIAGNOSES 1. Acute hypoxic respiratory failure. 2. Bilateral pneumonia. 3. History of [place]ain[place]-Gastaut syndrome. 4. History of cerebral palsy and mental retardation. 5. History of aspiration pneumonitis in the past. 6. History of seizure disorder. 7. Leukocytosis. HISTORY OF PRESENT ILLNESS Mr. Dunn is a 36-year-old, male well known to us secondary to previous hospitalizations due to aspiration pneumonitis. He is a 36-year-old gentleman resident of [place] with a history of severe mental retardation secondary to cerebral palsy and Bainbridge-Gastaut syndrome. Apparently, it was noticed that he was becoming increasingly lethargic and fatigued over at the [facility]. He was brought to the emergency room where he was found with the acute hypoxic respiratory failure. He was intubated. Imaging study was positive for bilateral pneumonia. There is an aide at the bedside with limited information. Therefore, I am not able to obtain any other history and neither am I able to obtain any review of systems. PAST MEDICAL HISTORY Again, significant for history of seizure disorder, Lc-Gastaut syndrome, cerebral palsy, mental retardation, and frequent aspiration pneumonitis. PAST SURGICAL HISTORY Significant for right temporal craniotomy, history of myringotomy, history of right temporal lobectomy, history of G-tube placement, and history of VNS placement and then removal. HOME MEDICATIONS I do not have in front of me, but this will be verified with pharmacy and patient will be restarting accordingly. ALLERGIES Allergic to Ambien, sulfa, mephenytoin, phenobarbital, carbamazepine, ampicillin, trimethoprim, and gabapentin. FAMILY HISTORY Unit #: [id number] #: [id number] Patient: LUTHER DUNN Unknown. PHYSICAL EXAMINATION ON PRESENTATION GENERAL APPEARANCE: Patient is 36-year-old gentleman who is intubated in ER room 34. VITAL SIGNS: BP 115/70, heart rate 120, respirations 24, and temperature 101.9. HEENT: Head is atraumatic. Pupils reactive to light. Orally intubated. NECK: Supple. No masses. No JVD. CARDIOVASCULAR: S1 and S2. No murmurs. CHEST: Diminished bilaterally. ABDOMEN: Soft, nontender, and nondistended. LOWER EXTREMITIES: Without any cyanosis, clubbing, or edema. NEUROLOGIC: Unobtainable. DIAGNOSTIC STUDIES IMAGING: Chest x-ray is positive for bilateral pneumonia. LABORATORY: Blood gases shows pH of 7.296, pCO2 53.2, and pO2 274. Chemistry significant for blood glucose of 144 and alk phos at 203, otherwise unremarkable. Lactic acid 1.4. PT, INR, and PTT unremarkable. Serial of cardiac enzymes negative. White count 12.8. ASSESSMENT AND PLAN 1. Acute hypoxic respiratory failure. 2. Bilateral pneumonia, healthcare acquired. 3. History of seizure disorder. 4. History of Lc-Gastaut syndrome. 5. History of cerebral palsy and mental retardation. 6. GI and DVT prophylaxes with PPI and SCDs. Patient is admitted to ICU. Dr. 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 Continue bronchodilators. Continue triple IV antibiotics, which were started in the ER. Continue DuoNeb. Resume seizure medications and tube feeds. Dictated by Joe Selby/maria esther TD: 03/14/2017 07:03 JOB #: [id number] [facility] HISTORY AND PHYSICAL Page 1 of 1 X Dave Hansen MD HISTORY AND PHYSICAL
--- NOTE | ~2017-03-13 | CR72 ---
[facility] A Service of [facility] / [facility] RADIOLOGY TEXT RESULTS PATIENT: LUTHER RAMIREZ LOCATION: [address] : [birth year] UNIT #: [id number] AGE: [address]: Dave Hansen MD SEX: M ORDER DR: [id number] [facility] [address] [facility]. [place], [place] [address] [id number] I MR#: [id number] Acc #: [id number] NAME: LUTHER RAMIREZ : 1980 SEX: M STUDY DATE/TIME: 03/26/2017 5:53 UNIT: [facility] ROOM: [facility] STUDY DESCRIPTION: CR Chest Single View Portable Attending Physician: Dave Hansen M.D. Ordering Physician: Vitor Scherer M.D. Primary Care Physician: Dinah Pike MEDICAL IMAGING REPORT This report is preliminary unless electronic signature is present EXAM Portable chest 03/26/2017 COMPARISON 03/24/2017. HISTORY Respiratory failure. FINDINGS There is no consolidation, effusion or pneumothorax. There is borderline cardiomegaly and there is interstitial prominence with some linear densities at both bases likely due to atelectasis, all unchanged since the study of 03/24. Left IJ central line has been removed and a feeding tube inserted. Contrast has been injected and is seen in the stomach. No pneumothorax. No new infiltrate. IMPRESSION Stable interstitial changes and presumed basilar atelectasis. No new infiltrate. No pneumothorax. Dictated by... Tong Bloom M.D. THIS IS AN ELECTRONICALLY VERIFIED REPORT Tong Bloom M.D. at 03/26/2017 3:49 PM GALA/meka TD: 03/26/2017 08:05 JOB #: [id number] [facility] A Service of [facility] / [facility] RADIOLOGY TEXT RESULTS PATIENT: LUTHER RAMIREZ LOCATION: [address] : 81 UNIT #: [id number] AGE: [address]: Dave Hansen MD SEX: M ORDER DR: MEDICAL IMAGING REPORT Page 1 of 1 COPY
--- NOTE | ~2017-03-13 | CR72 ---
[facility] A Service of [facility] / [facility] RADIOLOGY TEXT RESULTS PATIENT: LUTHER RAMIREZ LOCATION: [address] : 81 UNIT #: [id number] AGE: [address]: Dave Hansen MD SEX: M ORDER DR: [id number] [facility] [address] [facility]. [place], [place] [address] [id number] I MR#: [id number] Acc #: [id number] NAME: LUTHER RAMIREZ : 1980 SEX: M STUDY DATE/TIME: 03/21/2017 4:56 UNIT: [facility] ROOM: [facility] STUDY DESCRIPTION: CR Chest Single View Portable Attending Physician: Dave Hansen M.D. Ordering Physician: Vitor Scherer M.D. Primary Care Physician: Dinah Pike MEDICAL IMAGING REPORT This report is preliminary unless electronic signature is present EXAM AP portable chest 03/21/2017 HISTORY Respiratory failure. Follow up cardiopulmonary status. TECHNIQUE AP portable chest x-ray. FINDINGS The exam shows no change since yesterday. Mild diffuse, predominantly interstitial opacity throughout both lungs with patchy airspace density and atelectasis in the lung bases. Heart size normal. Left IJ central line and NG tube in good position. IMPRESSION Stable portable chest radiograph, unchanged since yesterday. Dictated by... Prosper Quintanilla M.D. THIS IS AN ELECTRONICALLY VERIFIED REPORT Prosper Quintanilla M.D. at 03/21/2017 5:58 AM KATHLEEN/chato TD: 03/21/2017 05:13 JOB #: [id number] MEDICAL IMAGING REPORT Page 1 of 1 COPY
--- NOTE | ~2017-03-13 | CO ---
Unit #: [id number] #: [id number] Patient: LUTHER RAMIREZ [id number] [address] [address] [id number] I MR#: [id number] NAME: LUTHER RAMIREZ ROOM: [facility] Age: 37 Sex: M Admission Date: 03/13/2017 : 1980 Attending Physician: Dave Hansen M.D. Primary Care Physician: Dinah Pike Consultation Date: 03/22/2017 CONSULTATION REPORT REASON FOR CONSULTATION Persistent fever. HISTORY OF PRESENT ILLNESS The patient is a 36-year-old male with history of mental retardation, resident of [place], admitted with increased lethargy and fatigue, found out to have pneumonia, requiring mechanical intubation. Sputum culture positive for Pseudomonas. He has been on cefepime and tobramycin. Started having persistent fever for about 4 days ago. Blood cultures have been negative. Infectious Disease consultation requested for further evaluation of antibiotic management. His stool for C diff was also negative. No family members at the bedside. All the history is from the chart. PAST MEDICAL HISTORY 1. Seizure disorder. 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 3. Cerebral palsy. 4. Mental retardation. 5. Aspiration pneumonia. 6. Craniotomy. 7. Myringotomy. 8. Lobectomy. 9. G-tube placement. 10. ARCHITECTURE INTERN shunt placement, then removal. SOCIAL HISTORY Remarkable for being from jail. FAMILY HISTORY Noncontributory. ALLERGIES Allergic to Ambien, sulfa, , carbamazepine, ampicillin, trimethoprim, and gabapentin. CURRENT MEDICATIONS List reviewed. Antibiotics include cefepime and tobramycin. PHYSICAL EXAMINATION GENERAL: The patient is now extubated, lying in bed, no distress. VITAL SIGNS: Temperature 100.2, pulse 104, respirations 18, blood pressure 124/72. HEENT: Unremarkable. Unit #: [id number] #: [id number] Patient: LUTHER RAMIREZ NECK: Supple. CHEST: Clear to auscultation. HEART: Normal S1, S2. ABDOMEN: Soft, nontender. EXTREMITIES: Shows no edema. DIAGNOSTIC STUDIES IMAGING STUDIES: Chest x-ray shows patchy bilateral infiltrates and also shows left-sided central line which has been in since admission, we can guess today is day 9. LABORATORY RESULTS: BUN 27, creatinine 0.6. LFTs were normal upon admission. WBC 15.5, it was 19 yesterday; hemoglobin 9.7; platelets 414. Urinalysis had some pyuria. All culture except sputum culture are negative. Sputum culture positive for Pseudomonas aeruginosa. Stool for C difficile toxin negative. ASSESSMENT 1. Healthcare associated pneumonia with Pseudomonas aeruginosa. 2. Persistent fever. 3. Possible line sepsis. 4. Question aspiration. 5. Mental retardation. 6. Cerebral palsy. PLAN We will go ahead and start the patient on vancomycin until we have blood culture results, recommend that the central line be removed or exchanged. We will also go ahead and switch him from cefepime and tobramycin to Zosyn to continue treatment for Pseudomanas aeruginosa and to cover him for aspiration. Further recommendation depending upon the course. I would like thank Dr. De La Vega for asking us to participate in the care of this patient. We will follow this patient along with you. Dictated by... Joe Celestin/edvin TD: 03/22/2017 23:52 JOB #: [id number] CONSULTATION REPORT Page 1 of 1 X Dinesh García MD X CONSULTATION REPORT
--- NOTE | ~2017-03-13 | CR7 ---
[facility] A Service of [facility] & [facility] RADIOLOGY TEXT RESULTS PATIENT: LUTHER RAMIREZ LOCATION: [address] : [birth year] UNIT #: [id number] AGE: [address]: Dave Hansen MD SEX: M ORDER DR: [id number] [facility] [address] [facility]. [place], [place] [address] [id number] I MR#: [id number] Acc #: [id number] NAME: LUTHER RAIMREZ : 1980 SEX: M STUDY DATE/TIME: 03/25/2017 13:27 UNIT: [facility] ROOM: [facility] STUDY DESCRIPTION: CR Abdomen Single AP View Attending Physician: Dave Hansen M.D. Ordering Physician: Dave Hansen M.D. Primary Care Physician: Dinah Pike MEDICAL IMAGING REPORT This report is preliminary unless electronic signature is present EXAM Portable KUB HISTORY Dobbhoff tube placement. TECHNIQUE A single view of the abdomen was obtained. FINDINGS Dobbhoff tube is seen coiled in the cardia of the stomach in satisfactory position. The bowel gas pattern is normal. Dictated by... Joseph Barreto M.D. THIS IS AN ELECTRONICALLY VERIFIED REPORT Joseph Barreto M.D. at 03/25/2017 4:44 PM ROB/robbin TD: 03/25/2017 13:57 JOB #: [id number] MEDICAL IMAGING REPORT Page 1 of 1 COPY
--- NOTE | ~2017-03-13 | CR72 ---
[facility] A Service of [facility] RADIOLOGY TEXT RESULTS PATIENT: LUTHER RAMIREZ LOCATION: CICCU3 CICCU3- : [birth year] UNIT #: [id number] AGE: [address]: Dave Hansen MD SEX: M ORDER DR: [id number] [facility] [address] [facility]. [place], [place] [address] [id number] I MR#: [id number] Acc #: [id number] NAME: LUTHER RAMIREZ : 1980 SEX: M STUDY DATE/TIME: 03/13/2017 15:53 UNIT: [facility] ROOM: [id number] STUDY DESCRIPTION: CR Chest Single View Portable Attending Physician: Dave Hansen M.D. Ordering Physician: Ritu Calzada M.D. Primary Care Physician: Dinah Pike MEDICAL IMAGING REPORT This report is preliminary unless electronic signature is present EXAM Portable chest Date of study: 03/13/2017 COMPARISON Chest radiograph is dated 10/17/2016 HISTORY Shortness of breath beginning today. Central line and ET tube placement. FINDINGS An AP portable view is obtained. The patient is intubated. ET tube above the megan. Left IJ line terminates in the SVC. There is no pneumothorax. The examination shows bilateral pulmonary parenchymal infiltrates left greater than right. These have a basilar predominance. Nasoenteric tube is in the stomach. CONCLUSION 1. Interim intubation left IJ placement and placement of a nasoenteric tube. 2. No pneumothorax. 3. Bilateral pulmonary infiltrates left greater than right. Dictated by... Vitor Madrid M.D. THIS IS AN ELECTRONICALLY VERIFIED REPORT Vitor Madrid M.D. at 03/16/2017 7:20 AM CANDIS/robbin [facility] A Service of [facility] & [facility] RADIOLOGY TEXT RESULTS PATIENT: LUTHER RAMIREZ LOCATION: CICCU3 CICCU3- : 82 UNIT #: [id number] AGE: [address]: Dave Hansen MD SEX: M ORDER DR: TD: 03/13/2017 23:37 JOB #: [id number] MEDICAL IMAGING REPORT Page 1 of 1 COPY
--- NOTE | ~2017-03-13 | CR72 ---
[facility] A Service of [facility] & [facility] RADIOLOGY TEXT RESULTS PATIENT: LUTHER RAMIREZ LOCATION: [address] : [birth year] UNIT #: [id number] AGE: [address]: Dave Hansen MD SEX: M ORDER DR: [id number] [facility] [address] [facility] [place], [place] [address] [id number] I MR#: [id number] Acc #: [id number] NAME: LUTHER RAMIREZ : 1980 SEX: M STUDY DATE/TIME: 03/23/2017 10:03 UNIT: [facility] ROOM: [facility] STUDY DESCRIPTION: CR Chest Single View Portable Attending Physician: Dave Hansen M.D. Ordering Physician: Vitor Scherer M.D. Primary Care Physician: Dinah Pike MEDICAL IMAGING REPORT This report is preliminary unless electronic signature is present EXAM Portable chest 03/23/2017 COMPARISON 03/21/2017. HISTORY Shortness of breath, pneumonia for 10 days. FINDINGS An AP view of the chest is obtained. Cardiac size is stable. Continue to be basilar infiltrates right greater than left. Allowing for positioning, these probably have not changed. Left-sided IJ line terminates in the SVC. Nasoenteric tube is in the stomach. CONCLUSION Allowing for differences in positioning, there has been no significant interim change. Continued basilar infiltrates right greater than left. Dictated by... Vitor Madrid M.D. THIS IS AN ELECTRONICALLY VERIFIED REPORT Vitor Madrid M.D. at 03/23/2017 4:52 PM CANDIS/meka TD: 03/23/2017 10:56 JOB #: [id number] MEDICAL IMAGING REPORT Page 1 of 1 COPY
--- NOTE | ~2017-03-13 | CR72 ---
[facility] A Service of [facility] & [facility] RADIOLOGY TEXT RESULTS PATIENT: LUTHER RAMIREZ LOCATION: [address] : 81 UNIT #: [id number] AGE: [address]: Dave Hansen MD SEX: M ORDER DR: [id number] [facility] [address] [facility]. [place], [place] [address] [id number] I MR#: [id number] Acc #: [id number] NAME: LUTHER RAMIREZ : 1980 SEX: M STUDY DATE/TIME: 03/17/2017 6:17 UNIT: [facility] ROOM: [facility] STUDY DESCRIPTION: CR Chest Single View Portable Attending Physician: Dave Hansen M.D. Ordering Physician: Vitor Scherer M.D. MEDICAL IMAGING REPORT This report is preliminary unless electronic signature is present EXAM Portable chest 1 view 03/17/2017, 06:17 a.m. COMPARISON STUDIES 03/16/2017. HISTORY Follow up for respiratory failure for 4 days. FINDINGS ET tube remains, tip about 4-5 cm above the megan. Left IJ central line remains as well as an NG tube. There are coarse bilateral infiltrates, which are probably stable, allowing for differences in inspiratory effort. There is no definite new infiltrate and no pneumothorax. Dictated by... Tong Bloom M.D. THIS IS AN ELECTRONICALLY VERIFIED REPORT Tong Bloom M.D. at 03/17/2017 3:52 PM TEV/pcl TD: 03/17/2017 15:16 JOB #: [id number] MEDICAL IMAGING REPORT Page 1 of 1 COPY
--- NOTE | ~2017-03-13 | FU ---
[facility] Nutrition Therapy DATE: 03/20/17 Patient: LUTHER RAMIREZ Physician: OLIVE Address: [facility] Room/Bed: [address], Zip: [place] [address] Admit Date: 03/13/17 Date of : [birth year] Height: 5 1.70 Weight: 136 62 NUTRITION MONITORING/FOLLOW-UP: Reason: Enteral nutrition follow-up Admitting Dx: 36 y/o male from [place] admitted with CALVIN PNA Anthropometrics: Ht: 61", admission wt: 58 kg, current wt: 62 kg, BMI: 23 (based on admission wt; normal) Labs: Glucose 130, BUN 24, lytes WNL Meds: Dilantin (NGT), Lactulose, Milk of Mg, Senokot, Miralax, Na Bicarb, Vit D, MVI, Phenobarbital (sedation) I&O's: 1879/1884, last BM unknown (none since admission) Skin: No issues, trace-1+ edema noted Estimated Nutrition Needs: 0284-9318 kcals per day (25-30 kcals/kg admission wt) 58-70 g protein per day (1.0-1.2 g/kg admission wt) Fluids consistent with kcal needs or per MD Assessment: Chart reviewed, events noted. Patient extubated yesterday, on Bipap, very lethargic. No longer on Propofol, currently being sedated with Phenobarbital. Patient has been tolerating EN at goal of 40 ml/hr (goal WITH Propfol) with minimal GRV, however he has not had a BM yet- on aggressive bowel regimen. Receiving daily Prostat, EN through NGT. Note the patient is still on Dilantin per NGT which requires EN be held 1 hour before and after administration. The patient received 88% goal EN volume over past 24 hours per pump history. See goals, nutrition dx and new recs below. Will continue to follow. Dx: Inadequate enteral nutrition infusion r/t EN held AEB 70% goal volume x 24 hours - RESOLVED New Dx: Inadequate enteral nutrition infusion r/t Propofol D/C AEB EN @ 40 ml/hr, new goal rate without Propfol is 50 ml/hr. Intervention: Increase EN to 50 ml/hr x 22 hours per day Monitoring, Evaluation and Goals: 1. EN to provide > 80% goal volume x 24 hours - MET 2. Labs WNL - MET [facility] Nutrition Therapy DATE: 03/20/17 Patient: LUTHER RAMIREZ Physician: OLIVE Address: [facility] Room/Bed: C[facility]3-[address] [facility], Zip: [place] [address] Admit Date: 03/13/17 Date of : [birth year] Height: 5 1.70 Weight: 136 62 3. Maintain weight status - MET 4. Promote regular GI function - NOT MET, IN PROGRESS New goals: 1. EN to provide > 80% goal volume x 24 hours. 2. Labs will remain WNL. 3. Will continue to maintain current weight status. 4. Promote regular BM's. Monitor: Per protocol, criteria to determine if above goals met Recommendations: 1. Please increase enteral nutrition rate with Jevity 1.5 to new goal rate of 50 ml/hr, now that Propofol has been discontinued. Please D/C Prostat. Feeds should be held 1 hour before and after administration of Dilantin per NGT (EN will run over 22 hours per day). This new nutrition regimen will provide 1650 kcals, 70 g protein and 836 ml water. Free water flushes per MD, suggest 200 ml QID. 2. Continue bowel regimen to promote a BM. 3. If the patient becomes appropriate for PO diet suggest SPARK TESTER eval to determine safe texture. RD suggests regular diet with no restrictions. Status: Moderate nutrition risk Respectfully, Rebecca Hodge, CORI, LD Food and Nutritional Services [facility] cc: client file
--- NOTE | ~2017-03-13 | CR72 ---
[facility] A Service of [facility] & [facility] RADIOLOGY TEXT RESULTS PATIENT: LUTHER RAMIREZ LOCATION: [address] : [birth year] UNIT #: [id number] AGE: [address]: Dave Hansen MD SEX: M ORDER DR: [id number] [facility] [address] [facility] [place], [place] [address] [id number] I MR#: [id number] Acc #: [id number] NAME: LUTHER RAMIREZ : 1980 SEX: M STUDY DATE/TIME: 03/19/2017 4:58 UNIT: [facility] ROOM: [facility] STUDY DESCRIPTION: CR Chest Single View Portable Attending Physician: Dave Hansen M.D. Ordering Physician: Dave Hansen M.D. Primary Care Physician: Dinah Pike MEDICAL IMAGING REPORT This report is preliminary unless electronic signature is present EXAM Portable chest INDICATION Follow up infiltrates and endotracheal tube. FINDINGS Today's portable view of the chest is compared with yesterday's study. The endotracheal tube, central venous catheter and nasogastric tube are stable. The right lung is now almost clear with minimal right base atelectasis and the more diffuse left lung infiltrate is stable. Dictated by... Andrea Malik M.D. THIS IS AN ELECTRONICALLY VERIFIED REPORT Andrea Malik M.D. at 03/19/2017 2:15 PM GI/meka TD: 03/19/2017 06:35 JOB #: [id number] MEDICAL IMAGING REPORT Page 1 of 1 COPY
--- NOTE | ~2017-03-13 | CR7 ---
[facility] A Service of [facility] RADIOLOGY TEXT RESULTS PATIENT: LUTHER RAMIREZ LOCATION: [place] [address]19 : 81 UNIT #: [id number] AGE: [address]: Dave Hansen MD SEX: M ORDER DR: [id number] [facility] [address] [facility]. [place], [place] [address] [id number] I MR#: [id number] Acc #: [id number] NAME: LUTHER RAMIREZ : 1980 SEX: M STUDY DATE/TIME: 03/24/2017 8:30 UNIT: [facility] ROOM: [facility] STUDY DESCRIPTION: CR Abdomen Single AP View Attending Physician: Dave Hansen M.D. Ordering Physician: Dave Hansen M.D. Primary Care Physician: Dinah Pike MEDICAL IMAGING REPORT This report is preliminary unless electronic signature is present EXAM AP abdomen INDICATION Dobbhoff tube placement COMPARISON 03/17/2017 FINDINGS The tip of the Dobbhoff tube projects over the region of the stomach. IMPRESSION Tip of the Dobbhoff tube projects over the stomach. Dictated by... Luther Donohue M.D. THIS IS AN ELECTRONICALLY VERIFIED REPORT Luther Donohue M.D. at 03/24/2017 5:08 PM Beth TD: 03/24/2017 09:29 JOB #: [id number] MEDICAL IMAGING REPORT Page 1 of 1 COPY
--- NOTE | ~2017-03-13 | CR72 ---
[facility] A Service of [facility] RADIOLOGY TEXT RESULTS PATIENT: LUTHER RAMIREZ LOCATION: [address] : [birth year] UNIT #: [id number] AGE: [address]: Dave Hansen MD SEX: M ORDER DR: [id number] [facility] [address] [facility]. [place], [place] [address] [id number] MR#: [id number] Acc #: [id number] NAME: LUTHER RAMIREZ : 1980 SEX: M STUDY DATE/TIME: 03/16/2017 6:04 UNIT: [facility] ROOM: [facility] STUDY DESCRIPTION: CR Chest Single View Portable Attending Physician: Dave Hansen M.D. Ordering Physician: Vitor Scherer M.D. Primary Care Physician: Dinah Pike MEDICAL IMAGING REPORT This report is preliminary unless electronic signature is present EXAM AP portable chest 03/16/2017 HISTORY Respiratory failure. Patient on ventilator. Follow up cardiopulmonary status. TECHNIQUE AP portable chest x-ray. FINDINGS The examination shows no significant change since yesterday. Endotracheal tube, left IJ central line and NG tube remain in good position. Patchy diffuse infiltrates throughout both lungs, greatest in the lung bases with more dense consolidation in the left lung base behind the heart. No visible pneumothorax or pleural effusion. IMPRESSION Stable portable chest radiograph, unchanged since yesterday. Dictated by... Prosper Quintanilla M.D. THIS IS AN ELECTRONICALLY VERIFIED REPORT Prosper Quintanilla M.D. at 03/16/2017 3:54 PM DAVIDW/meka TD: 03/16/2017 09:47 JOB #: [id number] MEDICAL IMAGING REPORT [facility] A Service [facility] RADIOLOGY TEXT RESULTS PATIENT: LUTHER RAMIREZ LOCATION: [address] : [birth year] UNIT #: [id number] AGE: [address]: Dave Hansen MD SEX: M ORDER DR: Page 1 of 1 COPY
--- NOTE | ~2017-03-13 | FU ---
[facility] Nutrition Therapy DATE: 03/26/17 Patient: LUTHER RAMIREZ Physician: OLIVE Address: [facility] Room/Bed: [address], Zip: [place] [address] Admit Date: 03/13/17 Date of : [birth year] Height: 5 1.70 Weight: 137 62.5 NUTRITION MONITORING/FOLLOW-UP: Reason: Follow up Anthropometrics: Wt 03/26: 62.5 kg Labs: Gluc 114 Creat 0.4 Meds: Dilantin, lactulose, MOM, vitamin D, sodium bicarbonate, os-julisa + D, MVI, senokot, miralax I&O's: 1825/2340, last BM 03/24 Skin: no changes noted Edema: none noted Estimated Nutrition Needs: 5323-5534 kcals (25-30 kcals/kg) 58-70 grams protein (1.0-1.2 grams/kg) Assessment: Chart reviewed, events noted. Pt remains in ICU, and is no longer intubated. Pt went for video THERMOSCREW OPERATOR evaluation and showed signs of aspiration. THERMOSCREW OPERATOR recommended that the pt remains NPO and to consider PEG placement. Pt is scheduled to have PEG placed this afternoon, and enteral nutrition is being held for that. RN reports that the pt was tolerating enteral nutrition prior to holding feeds. Per pump history, the pt has received 58% enteral goal volume over the last 24 hrs, and 78% goal volume over the last 48 hrs. Please see recommendations below. Nutrition diagnosis remains with change in evidence. Dx: Inadequate enteral nutrition infusion RT enteral nutrition held for procedures AEB 58% goal volume administered over the past 24 hrs. Intervention: 1. Enteral nutrition 2. PEG 3. NPO Monitoring, Evaluation and Goals: 1. EN; provide >80% goal volume over 24 hrs- NOT MET 2. Labs; WNL- IMPROVING/ IN PROGRESS 3. Weight; prevent unintentional weight loss- IN PROGRESS 4. GI; promote regular GI function- IN PROGRESS [facility] Nutrition Therapy DATE: 03/26/17 Patient: LUTHER RAMIREZ Physician: OLIVE Address: [facility] Room/Bed: [address], Zip: [place] [address] Admit Date: 03/13/17 Date of : [birth year] Height: 5 1.70 Weight: 137 62.5 Recommendations: 1. Consider placing a low-profile/ button enteral tube, as the pt has a h/o pulling out tubes. 2. Once medically feasible following PEG placement, recommend resuming enteral nutrition with Jevity 1.5 @ 30 mL/hr x 22 hrs. Increase by 10 mL q 2 hrs as tolerated to goal of 50 ml/hr x 22 hrs. 3. Please ensure HOB is upright at a minimum of 30-45 degrees during EN administration. Status: Pt is at mild-moderate nutritional risk. RD will continue to follow. Respectfully, SHANIKA PAGE RD, LD Food and Nutritional Services [facility] cc: client file
--- NOTE | ~2017-03-13 | EKG ---
PATIENT: LUTHER RAMIREZ UNIT #: [id number] Ventricular Rate: 103 BPM Atrial Rate: 103 BPM P-R Interval: 178 ms QRS Duration: 82 ms Q-T Interval: 358 ms QTC Calculation(Bezet): 468 ms P Rozet: 44 degrees Calculated R Rozet: 61 degrees Calculated T Rozet: 24 degrees Diagnosis Line: Sinus tachycardia Diagnosis Line: Otherwise normal ECG Diagnosis Line: When compared with ECG of 07-NOV-2016 09:36, Diagnosis Line: No significant change was found Diagnosis Line: Confirmed by AVINASH SAHA MD ([id number]) on Diagnosis Line: 03/15/2017 3:51:49 PM INTERPRETING MD: YELITZA
--- NOTE | ~2017-03-13 | CR72 ---
[facility] A Service of [facility] & [facility] RADIOLOGY TEXT RESULTS PATIENT: LUTHER RAMIREZ LOCATION: [address] : [birth year] UNIT #: [id number] AGE: [address]: Dave Hansen MD SEX: M ORDER DR: [id number] [facility] [address]. [place], [place] [address] [id number] I MR#: [id number] Acc #: [id number] NAME: LUTHER RAMIREZ : 1980 SEX: M STUDY DATE/TIME: 03/18/2017 4:43 UNIT: [facility] ROOM: [facility] STUDY DESCRIPTION: CR Chest Single View Portable Attending Physician: Dave Hansen M.D. Ordering Physician: Vitor Scherer M.D. Primary Care Physician: Dinah Pike MEDICAL IMAGING REPORT This report is preliminary unless electronic signature is present EXAM Portable chest HISTORY Follow up endotracheal tube and respiratory failure. FINDINGS Portable view of the chest is obtained. Diffuse mild infiltrates are present and stable. The central venous catheter and endotracheal tube are in good position. IMPRESSION No change from yesterday's study. Dictated by... Andrea Malik M.D. THIS IS AN ELECTRONICALLY VERIFIED REPORT Andrea Malik M.D. at 03/18/2017 2:21 PM Salo TD: 03/18/2017 06:58 JOB #: [id number] MEDICAL IMAGING REPORT Page 1 of 1 COPY
[2017-03-13 15:05] LABS: URINE SOURCE CATH
[2017-03-13 15:16] LABS: BASOPHIL% 0.2 % (0-2.5); EOSINOPHIL# 0.2 X10e3 (0-0.7); EOSINOPHIL% 1.4 % (0.0-7.0); HEMATOCRIT 41.8 % (38.0-50.0); HEMOGLOBIN 13.3 gm/dL (13.0-16.0); LYMPHOCYTE# 1.3 X10e3 (1.0-3.5); LYMPHOCYTE% 9.9 % (17.0-45.0); MEAN CELL VOLUME 91.5 FL (83-96); MEAN CORPUSCULAR HEMOGLOBIN 29.1 PG (28-34); MEAN CORPUSCULAR HGB CONC 31.7 g/dL (30-36); MONOCYTE# 1.6 X10e3 (0-1.0); MONOCYTE% 12.3 % (3.0-12.0); NEUTROPHIL# 9.8 X10e3 (1.5-7.1); NEUTROPHIL% 76.2 % (40-75); PLATELET COUNT 308 X10e3 (140-420); RED BLOOD COUNT 4.57 X10e (3.90-5.60); WHITE BLOOD COUNT 12.8 X10e3 (4.0-10.5)
[2017-03-13 15:16] LABS: URINE APPEARANCE CLOUDY; URINE BILIRUBIN NEG (NEG); URINE BLOOD NEG (NEG); URINE COLOR YELLOW; URINE GLUCOSE NEG (NEG); URINE KETONE NEG (NEG); URINE LEUKOCYTE ESTERASE NEG (NEG); URINE NITRATE NEG (NEG); URINE PROTEIN NEG (NEG); URINE UROBILINOGEN 0.2 MG/DL (NEG)
[2017-03-13 15:23] LABS: PARTIAL THROMBOPLASTIN TIME 25.9 SECONDS (23.5-31.3)
[2017-03-13 15:27] LABS: DIFF IND NO
[2017-03-13 15:29] LABS: CULTURE INDICATED? NO
[2017-03-13 15:32] LABS: ALBUMIN SERUM 3.9 g/dL (3.5-5.0); ALKALINE PHOSPHATASE 203 U/L (32-92); ALT (SGPT) 18 U/L (10-40); AST (SGOT) 25 U/L (10-42); BILIRUBIN,TOTAL 0.2 mg/dL (0.2-2.0); BLOOD UREA NITROGEN 19 mg/dL (9-23); BUN/CREATININE RATIO 21.11; CALCIUM SERUM 8.8 mg/dL (8.4-10.2); CARBON DIOXIDE 28 mmol/L (22-31); CHLORIDE 101 mmol/L (100-111); CREATININE SERUM 0.9 mg/dL (0.6-1.4); GLOM FILT RATE Estimated 110.3 mL/min (>60); GLUCOSE FASTING 144 mg/dL (70-110); MAGNESIUM 1.9 mg/dL (1.6-3.0); PROTEIN TOTAL SERUM 7.6 g/dL (6.0-8.3); SODIUM 139 mmol/L (135-145)
[2017-03-13 15:37] LABS: BILIRUBIN, DIRECT <0.1 mg/dL (0.0-0.2); BILIRUBIN,INDIRECT 0.1 mg/dL (0.0-0.9)
[2017-03-13 16:05] LABS: POC - CKMB <1.0 ng/mL (0.0-7.9); POC - TROPONIN <0.05 ng/mL (<=0.05)
[2017-03-13 16:52] LABS: ARTERIAL BLD GAS O2 SATURATION 98.5 % (90.0-100.0); ARTERIAL BLOOD GAS CARBOXY HB 0.4 %sat (0.0-9.0); ARTERIAL BLOOD GAS HCO3 25.9 mmol/L; ARTERIAL BLOOD GAS pH 7.296 (7.350-7.450)
[2017-03-13 16:53] LABS: ARTERIAL BLOOD GAS ART SITE RIGHT BRACHIAL; ARTERIAL BLOOD GAS DELIVERY VENT; ARTERIAL BLOOD GAS PCO2 53.2 mmHg (35.0-45.0); ARTERIAL BLOOD GAS VENT MODE AC; ARTERIAL DRAW? YES
[2017-03-14 03:57] LABS: ARTERIAL BLD GAS O2 SATURATION 92.2 % (90.0-100.0); ARTERIAL BLOOD GAS CARBOXY HB 0.7 %sat (0.0-9.0); ARTERIAL BLOOD GAS HCO3 24.2 mmol/L; ARTERIAL BLOOD GAS MET HB 1.1 %sat (0.0-2.0); ARTERIAL BLOOD GAS PCO2 45.2 mmHg (35.0-45.0); ARTERIAL BLOOD GAS PO2 82.1 mmHg (80.0-100); ARTERIAL BLOOD GAS pH 7.338 (7.350-7.450)
[2017-03-14 03:59] LABS: ARTERIAL BLOOD GAS ART SITE RIGHT FEMORAL; ARTERIAL BLOOD GAS DELIVERY VENT; ARTERIAL BLOOD GAS VENT MODE AC; ARTERIAL DRAW? YES
[2017-03-15 03:57] LABS: ARTERIAL BLD GAS O2 SATURATION 96.5 % (90.0-100.0); ARTERIAL BLOOD GAS CARBOXY HB 0.6 %sat (0.0-9.0); ARTERIAL BLOOD GAS HCO3 26.2 mmol/L; ARTERIAL BLOOD GAS PO2 92.2 mmHg (80.0-100); ARTERIAL BLOOD GAS pH 7.354 (7.350-7.450)
[2017-03-15 04:05] LABS: ARTERIAL BLOOD GAS ALLEN TEST NORMAL; ARTERIAL BLOOD GAS ART SITE LEFT RADIAL; ARTERIAL BLOOD GAS DELIVERY VENT; ARTERIAL BLOOD GAS VENT MODE AC; ARTERIAL DRAW? YES
[2017-03-15 05:36] LABS: BASOPHIL% 0.2 % (0-2.5); EOSINOPHIL# 0.6 X10e3 (0-0.7); EOSINOPHIL% 2.7 % (0.0-7.0); HEMATOCRIT 32.3 % (38.0-50.0); LYMPHOCYTE# 1.8 X10e3 (1.0-3.5); LYMPHOCYTE% 7.6 % (17.0-45.0); MEAN CORPUSCULAR HGB CONC 31.2 g/dL (30-36); MEAN PLATELET VOLUME 7.3 FL (6.5-11.5); MONOCYTE# 2.8 X10e3 (0-1.0); MONOCYTE% 11.6 % (3.0-12.0); NEUTROPHIL# 18.6 X10e3 (1.5-7.1); NEUTROPHIL% 77.9 % (40-75); PLATELET COUNT 224 X10e3 (140-420); RED BLOOD COUNT 3.47 X10e (3.90-5.60); RED CELL DISTRIBUTION WIDTH 12.9 % (11.0-15.5)
[2017-03-15 05:38] LABS: HEMOGLOBIN 10.1 gm/dL (13.0-16.0)
[2017-03-15 05:39] LABS: DIFF IND YES
[2017-03-15 06:33] LABS: ANISOCYTOSIS SL; PLATELET ESTIMATE NORMAL (NORMAL)
[2017-03-15 07:22] LABS: ALBUMIN SERUM 2.2 g/dL (3.5-5.0); BILIRUBIN,TOTAL 0.4 mg/dL (0.2-2.0); BUN/CREATININE RATIO 21.66; CREATININE SERUM 0.6 mg/dL (0.6-1.4); GLOM FILT RATE Estimated 130.3 mL/min (>60); POTASSIUM 3.9 mmol/L (3.5-5.1); PROTEIN TOTAL SERUM 4.8 g/dL (6.0-8.3)
[2017-03-16 03:32] LABS: ARTERIAL BLD GAS O2 SATURATION 96.9 % (90.0-100.0); ARTERIAL BLOOD GAS CARBOXY HB 0.5 %sat (0.0-9.0); ARTERIAL BLOOD GAS HCO3 28.1 mmol/L; ARTERIAL BLOOD GAS PCO2 47.5 mmHg (35.0-45.0); ARTERIAL BLOOD GAS PO2 99.8 mmHg (80.0-100)
[2017-03-16 03:33] LABS: ARTERIAL BLOOD GAS ART SITE LEFT BRACHIAL; ARTERIAL BLOOD GAS DELIVERY VENT; ARTERIAL BLOOD GAS VENT MODE AC; ARTERIAL DRAW? YES
[2017-03-16 05:17] LABS: BASOPHIL% 0.2 % (0-2.5); EOSINOPHIL# 0.4 X10e3 (0-0.7); EOSINOPHIL% 2.2 % (0.0-7.0); LYMPHOCYTE# 1.3 X10e3 (1.0-3.5); LYMPHOCYTE% 6.6 % (17.0-45.0); MEAN CELL VOLUME 91.5 FL (83-96); MEAN CORPUSCULAR HEMOGLOBIN 28.6 PG (28-34); MEAN CORPUSCULAR HGB CONC 31.3 g/dL (30-36); MONOCYTE# 2.5 X10e3 (0-1.0); MONOCYTE% 12.3 % (3.0-12.0); NEUTROPHIL# 15.8 X10e3 (1.5-7.1); NEUTROPHIL% 78.7 % (40-75); PLATELET COUNT 218 X10e3 (140-420); RED CELL DISTRIBUTION WIDTH 13.1 % (11.0-15.5); WHITE BLOOD COUNT 20.1 X10e3 (4.0-10.5)
[2017-03-16 05:20] LABS: DIFF IND NO
[2017-03-16 06:34] LABS: ALBUMIN SERUM 2.1 g/dL (3.5-5.0); BILIRUBIN,TOTAL 0.2 mg/dL (0.2-2.0); CREATININE SERUM 0.4 mg/dL (0.6-1.4); GLOM FILT RATE Estimated 153.9 mL/min (>60); POTASSIUM 3.8 mmol/L (3.5-5.1); PROTEIN TOTAL SERUM 4.8 g/dL (6.0-8.3)
[2017-03-17 04:08] LABS: ARTERIAL BLD GAS O2 SATURATION 96.9 % (90.0-100.0); ARTERIAL BLOOD GAS CARBOXY HB 0.7 %sat (0.0-9.0); ARTERIAL BLOOD GAS HCO3 28.4 mmol/L; ARTERIAL BLOOD GAS pH 7.358 (7.350-7.450)
[2017-03-17 04:15] LABS: ARTERIAL BLOOD GAS ALLEN TEST NORMAL; ARTERIAL BLOOD GAS ART SITE LEFT RADIAL; ARTERIAL BLOOD GAS DELIVERY VENT; ARTERIAL BLOOD GAS PCO2 50.5 mmHg (35.0-45.0); ARTERIAL BLOOD GAS VENT MODE AC; ARTERIAL DRAW? YES
[2017-03-17 05:39] LABS: BASOPHIL% 0.2 % (0-2.5); EOSINOPHIL# 0.5 X10e3 (0-0.7); EOSINOPHIL% 4.3 % (0.0-7.0); HEMATOCRIT 30.7 % (38.0-50.0); HEMOGLOBIN 9.6 gm/dL (13.0-16.0); LYMPHOCYTE# 1.4 X10e3 (1.0-3.5); LYMPHOCYTE% 12.1 % (17.0-45.0); MEAN CELL VOLUME 91.3 FL (83-96); MEAN CORPUSCULAR HEMOGLOBIN 28.6 PG (28-34); MEAN CORPUSCULAR HGB CONC 31.4 g/dL (30-36); MEAN PLATELET VOLUME 7.3 FL (6.5-11.5); MONOCYTE# 1.7 X10e3 (0-1.0); MONOCYTE% 14.8 % (3.0-12.0); NEUTROPHIL# 7.8 X10e3 (1.5-7.1); NEUTROPHIL% 68.6 % (40-75); PLATELET COUNT 208 X10e3 (140-420); RED BLOOD COUNT 3.37 X10e (3.90-5.60); RED CELL DISTRIBUTION WIDTH 13.6 % (11.0-15.5); WHITE BLOOD COUNT 11.4 X10e3 (4.0-10.5)
[2017-03-17 05:54] LABS: DIFF IND NO
[2017-03-17 07:05] LABS: ALBUMIN SERUM 2.1 g/dL (3.5-5.0); BILIRUBIN,TOTAL 0.2 mg/dL (0.2-2.0); CALCIUM SERUM 7.8 mg/dL (8.4-10.2); CREATININE SERUM 0.6 mg/dL (0.6-1.4); GLOM FILT RATE Estimated 130.3 mL/min (>60); MAGNESIUM 1.9 mg/dL (1.6-3.0); PHOSPHOROUS 3.3 mg/dL (2.5-4.6); POTASSIUM 3.7 mmol/L (3.5-5.1)
[2017-03-18 06:08] LABS: BASOPHIL% 0.4 % (0-2.5); EOSINOPHIL# 0.4 X10e3 (0-0.7); EOSINOPHIL% 4.2 % (0.0-7.0); HEMATOCRIT 31.7 % (38.0-50.0); HEMOGLOBIN 9.9 gm/dL (13.0-16.0); LYMPHOCYTE# 1.6 X10e3 (1.0-3.5); LYMPHOCYTE% 17.4 % (17.0-45.0); MEAN CELL VOLUME 92.3 FL (83-96); MEAN CORPUSCULAR HEMOGLOBIN 28.9 PG (28-34); MEAN CORPUSCULAR HGB CONC 31.3 g/dL (30-36); MEAN PLATELET VOLUME 7.5 FL (6.5-11.5); NEUTROPHIL# 6.3 X10e3 (1.5-7.1); PLATELET COUNT 239 X10e3 (140-420); RED BLOOD COUNT 3.43 X10e (3.90-5.60); RED CELL DISTRIBUTION WIDTH 13.6 % (11.0-15.5); WHITE BLOOD COUNT 9.4 X10e3 (4.0-10.5)
[2017-03-18 06:16] LABS: DIFF IND YES
[2017-03-18 06:25] LABS: BUN/CREATININE RATIO 26.66; CALCIUM SERUM 7.9 mg/dL (8.4-10.2); CREATININE SERUM 0.6 mg/dL (0.6-1.4); GLOM FILT RATE Estimated 130.3 mL/min (>60); MAGNESIUM 1.8 mg/dL (1.6-3.0); PHOSPHOROUS 4.2 mg/dL (2.5-4.6); POTASSIUM 3.9 mmol/L (3.5-5.1)
[2017-03-18 07:07] LABS: ANISOCYTOSIS SL; HYPOCHROMIA SL; PLATELET ESTIMATE NORMAL (NORMAL)
[2017-03-18 09:01] LABS: ARTERIAL BLD GAS O2 SATURATION 94.5 % (90.0-100.0); ARTERIAL BLOOD GAS CARBOXY HB 0.3 %sat (0.0-9.0); ARTERIAL BLOOD GAS HCO3 28.7 mmol/L; ARTERIAL BLOOD GAS MET HB 0.9 %sat (0.0-2.0); ARTERIAL BLOOD GAS PCO2 46.5 mmHg (35.0-45.0); ARTERIAL BLOOD GAS pH 7.399 (7.350-7.450)
[2017-03-18 09:02] LABS: ARTERIAL BLOOD GAS ALLEN TEST NORMAL; ARTERIAL BLOOD GAS ART SITE RIGHT RADIAL; ARTERIAL BLOOD GAS PO2 78.1 mmHg (80.0-100); ARTERIAL BLOOD GAS VENT MODE CPAP; ARTERIAL DRAW? YES
[2017-03-19 09:16] LABS: BASOPHIL% 0.5 % (0-2.5); EOSINOPHIL# 0.4 X10e3 (0-0.7); EOSINOPHIL% 4.9 % (0.0-7.0); HEMATOCRIT 31.7 % (38.0-50.0); HEMOGLOBIN 10.1 gm/dL (13.0-16.0); LYMPHOCYTE# 2.1 X10e3 (1.0-3.5); LYMPHOCYTE% 23.2 % (17.0-45.0); MEAN CELL VOLUME 90.5 FL (83-96); MEAN CORPUSCULAR HEMOGLOBIN 28.8 PG (28-34); MEAN CORPUSCULAR HGB CONC 31.8 g/dL (30-36); MEAN PLATELET VOLUME 6.8 FL (6.5-11.5); MONOCYTE# 1.2 X10e3 (0-1.0); MONOCYTE% 13.1 % (3.0-12.0); NEUTROPHIL# 5.3 X10e3 (1.5-7.1); NEUTROPHIL% 58.3 % (40-75); PLATELET COUNT 265 X10e3 (140-420); RED CELL DISTRIBUTION WIDTH 13.7 % (11.0-15.5)
[2017-03-19 09:19] LABS: DIFF IND NO
[2017-03-19 09:35] LABS: BUN/CREATININE RATIO 33.33; CALCIUM SERUM 8.1 mg/dL (8.4-10.2); CREATININE SERUM 0.6 mg/dL (0.6-1.4); GLOM FILT RATE Estimated 130.3 mL/min (>60); POTASSIUM 4.2 mmol/L (3.5-5.1)
[2017-03-19 10:26] LABS: ARTERIAL BLD GAS O2 SATURATION 94.5 % (90.0-100.0); ARTERIAL BLOOD GAS CARBOXY HB 0.5 %sat (0.0-9.0); ARTERIAL BLOOD GAS HCO3 29.3 mmol/L; ARTERIAL BLOOD GAS MET HB 0.7 %sat (0.0-2.0); ARTERIAL BLOOD GAS PCO2 47.8 mmHg (35.0-45.0); ARTERIAL BLOOD GAS pH 7.396 (7.350-7.450)
[2017-03-19 10:28] LABS: ARTERIAL BLOOD GAS ART SITE LEFT BRACHIAL; ARTERIAL BLOOD GAS PO2 77.5 mmHg (80.0-100); ARTERIAL BLOOD GAS VENT MODE CPAP; ARTERIAL DRAW? YES
[2017-03-19 11:54] LABS: ARTERIAL BLD GAS O2 SATURATION 95.2 % (90.0-100.0); ARTERIAL BLOOD GAS CARBOXY HB 0.4 %sat (0.0-9.0); ARTERIAL BLOOD GAS HCO3 29.4 mmol/L; ARTERIAL BLOOD GAS MET HB 0.9 %sat (0.0-2.0); ARTERIAL BLOOD GAS PO2 90.4 mmHg (80.0-100); ARTERIAL BLOOD GAS pH 7.344 (7.350-7.450)
[2017-03-19 11:56] LABS: ARTERIAL BLOOD GAS PCO2 54.1 mmHg (35.0-45.0)
[2017-03-19 11:57] LABS: ARTERIAL BLOOD GAS ART SITE RIGHT BRACHIAL; ARTERIAL BLOOD GAS DELIVERY NASAL CANNULA; ARTERIAL DRAW? YES
[2017-03-19 16:06] LABS: ARTERIAL BLD GAS O2 SATURATION 84.8 % (90.0-100.0); ARTERIAL BLOOD GAS CARBOXY HB 0.7 %sat (0.0-9.0); ARTERIAL BLOOD GAS MET HB 0.8 %sat (0.0-2.0); ARTERIAL BLOOD GAS PCO2 47.7 mmHg (35.0-45.0); ARTERIAL BLOOD GAS pH 7.392 (7.350-7.450)
[2017-03-19 16:08] LABS: ARTERIAL BLOOD GAS ART SITE RIGHT BRACHIAL; ARTERIAL BLOOD GAS DELIVERY OXYMIZER; ARTERIAL DRAW? YES
[2017-03-20 04:07] LABS: HEMATOCRIT 33.2 % (38.0-50.0); HEMOGLOBIN 10.4 gm/dL (13.0-16.0); MEAN CELL VOLUME 89.8 FL (83-96); MEAN CORPUSCULAR HEMOGLOBIN 28.2 PG (28-34); MEAN CORPUSCULAR HGB CONC 31.4 g/dL (30-36); RED BLOOD COUNT 3.69 X10e (3.90-5.60); RED CELL DISTRIBUTION WIDTH 13.5 % (11.0-15.5); WHITE BLOOD COUNT 14.7 X10e3 (4.0-10.5)
[2017-03-20 04:29] LABS: CALCIUM SERUM 8.1 mg/dL (8.4-10.2); CREATININE SERUM 0.6 mg/dL (0.6-1.4); GLOM FILT RATE Estimated 130.3 mL/min (>60); MAGNESIUM 2.2 mg/dL (1.6-3.0); POTASSIUM 4.5 mmol/L (3.5-5.1)
[2017-03-20 05:26] LABS: ARTERIAL BLD GAS O2 SATURATION 97.5 % (90.0-100.0); ARTERIAL BLOOD GAS CARBOXY HB 0.4 %sat (0.0-9.0); ARTERIAL BLOOD GAS HCO3 31.6 mmol/L; ARTERIAL BLOOD GAS MET HB 0.9 %sat (0.0-2.0); ARTERIAL BLOOD GAS pH 7.406 (7.350-7.450)
[2017-03-20 05:38] LABS: ARTERIAL BLOOD GAS ALLEN TEST NORMAL; ARTERIAL BLOOD GAS ART SITE RIGHT RADIAL; ARTERIAL BLOOD GAS DELIVERY BIPAP 16/8; ARTERIAL BLOOD GAS PCO2 50.3 mmHg (35.0-45.0); ARTERIAL DRAW? YES
[2017-03-20 21:07] LABS: ARTERIAL BLOOD GAS CARBOXY HB 0.5 %sat (0.0-9.0); ARTERIAL BLOOD GAS HCO3 31.6 mmol/L; ARTERIAL BLOOD GAS MET HB 0.8 %sat (0.0-2.0); ARTERIAL BLOOD GAS pH 7.382 (7.350-7.450)
[2017-03-20 21:08] LABS: ARTERIAL BLD GAS O2 SATURATION 89.7 % (90.0-100.0); ARTERIAL BLOOD GAS ALLEN TEST NORMAL; ARTERIAL BLOOD GAS ART SITE RIGHT RADIAL; ARTERIAL BLOOD GAS DELIVERY BIPAP 16/8; ARTERIAL BLOOD GAS PCO2 53.3 mmHg (35.0-45.0); ARTERIAL DRAW? YES
[2017-03-21 04:18] LABS: ARTERIAL BLD GAS O2 SATURATION 95.9 % (90.0-100.0); ARTERIAL BLOOD GAS CARBOXY HB 0.5 %sat (0.0-9.0); ARTERIAL BLOOD GAS HCO3 32.5 mmol/L; ARTERIAL BLOOD GAS MET HB 0.8 %sat (0.0-2.0); ARTERIAL BLOOD GAS PO2 87.3 mmHg (80.0-100); ARTERIAL BLOOD GAS pH 7.397 (7.350-7.450)
[2017-03-21 04:28] LABS: ARTERIAL BLOOD GAS ART SITE RIGHT BRACHIAL; ARTERIAL BLOOD GAS DELIVERY BIPAP 16/8; ARTERIAL BLOOD GAS PCO2 52.9 mmHg (35.0-45.0); ARTERIAL DRAW? YES
[2017-03-21 05:20] LABS: BASOPHIL# 0.1 X10e3 (0-0.3); BASOPHIL% 0.3 % (0-2.5); DIFF IND NO; EOSINOPHIL# 0.4 X10e3 (0-0.7); EOSINOPHIL% 2.3 % (0.0-7.0); HEMOGLOBIN 10.2 gm/dL (13.0-16.0); LYMPHOCYTE% 10.3 % (17.0-45.0); MEAN CORPUSCULAR HEMOGLOBIN 28.6 PG (28-34); MEAN CORPUSCULAR HGB CONC 31.8 g/dL (30-36); MEAN PLATELET VOLUME 7.1 FL (6.5-11.5); MONOCYTE# 2.5 X10e3 (0-1.0); MONOCYTE% 13.1 % (3.0-12.0); NEUTROPHIL# 14.1 X10e3 (1.5-7.1); PLATELET COUNT 371 X10e3 (140-420); RED BLOOD COUNT 3.55 X10e (3.90-5.60); RED CELL DISTRIBUTION WIDTH 13.7 % (11.0-15.5)
[2017-03-21 05:59] LABS: CALCIUM SERUM 8.4 mg/dL (8.4-10.2); CREATININE SERUM 0.5 mg/dL (0.6-1.4); GLOM FILT RATE Estimated 139.5 mL/min (>60); MAGNESIUM 2.1 mg/dL (1.6-3.0); PHOSPHOROUS 2.3 mg/dL (2.5-4.6); POTASSIUM 4.7 mmol/L (3.5-5.1)
[2017-03-21 13:04] LABS: ARTERIAL BLD GAS O2 SATURATION 88.1 % (90.0-100.0); ARTERIAL BLOOD GAS CARBOXY HB 0.6 %sat (0.0-9.0); ARTERIAL BLOOD GAS HCO3 30.2 mmol/L; ARTERIAL BLOOD GAS PCO2 48.7 mmHg (35.0-45.0); ARTERIAL BLOOD GAS pH 7.401 (7.350-7.450)
[2017-03-21 13:05] LABS: ARTERIAL BLOOD GAS ART SITE LEFT BRACHIAL; ARTERIAL BLOOD GAS DELIVERY HIGHFLOW; ARTERIAL BLOOD GAS PO2 60.9 mmHg (80.0-100); ARTERIAL DRAW? YES
[2017-03-21 19:00] LABS: URINE SOURCE CATH
[2017-03-21 19:05] LABS: URINE APPEARANCE TURBID; URINE BILIRUBIN NEG (NEG); URINE BLOOD 2+ (NEG); URINE COLOR YELLOW; URINE GLUCOSE NEG (NEG); URINE KETONE NEG (NEG); URINE LEUKOCYTE ESTERASE NEG (NEG); URINE NITRATE NEG (NEG); URINE PROTEIN 1+ (NEG); URINE SPECIFIC GRAVITY 1.025 (1.003-1.035); URINE UROBILINOGEN 0.2 MG/DL (NEG)
[2017-03-21 19:08] LABS: CULTURE INDICATED? YES; URBCS1 AUWI 200-300 /[HPF] (0-2); URINE BACTERIA AUWI NEG (NEGATIVE); URINE SQUAMOUS EPITHELIAL CELL FEW /[HPF]
[2017-03-22 06:09] LABS: BASOPHIL# 0.1 X10e3 (0-0.3); BASOPHIL% 0.3 % (0-2.5); DIFF IND NO; EOSINOPHIL# 0.6 X10e3 (0-0.7); EOSINOPHIL% 3.7 % (0.0-7.0); HEMATOCRIT 30.9 % (38.0-50.0); HEMOGLOBIN 9.7 gm/dL (13.0-16.0); LYMPHOCYTE# 2.5 X10e3 (1.0-3.5); LYMPHOCYTE% 15.9 % (17.0-45.0); MEAN CORPUSCULAR HEMOGLOBIN 28.1 PG (28-34); MEAN CORPUSCULAR HGB CONC 31.2 g/dL (30-36); MEAN PLATELET VOLUME 7.5 FL (6.5-11.5); MONOCYTE# 2.1 X10e3 (0-1.0); MONOCYTE% 13.7 % (3.0-12.0); NEUTROPHIL# 10.3 X10e3 (1.5-7.1); NEUTROPHIL% 66.4 % (40-75); PLATELET COUNT 414 X10e3 (140-420); RED BLOOD COUNT 3.44 X10e (3.90-5.60); RED CELL DISTRIBUTION WIDTH 13.9 % (11.0-15.5); WHITE BLOOD COUNT 15.5 X10e3 (4.0-10.5)
[2017-03-22 07:07] LABS: CALCIUM SERUM 8.3 mg/dL (8.4-10.2); CREATININE SERUM 0.6 mg/dL (0.6-1.4); GLOM FILT RATE Estimated 129.4 mL/min (>60); POTASSIUM 4.6 mmol/L (3.5-5.1)
[2017-03-23 05:36] LABS: BASOPHIL% 0.3 % (0-2.5); EOSINOPHIL# 0.5 X10e3 (0-0.7); EOSINOPHIL% 3.8 % (0.0-7.0); HEMATOCRIT 29.2 % (38.0-50.0); HEMOGLOBIN 9.3 gm/dL (13.0-16.0); LYMPHOCYTE# 1.8 X10e3 (1.0-3.5); LYMPHOCYTE% 13.1 % (17.0-45.0); MEAN CELL VOLUME 89.7 FL (83-96); MEAN CORPUSCULAR HEMOGLOBIN 28.6 PG (28-34); MEAN CORPUSCULAR HGB CONC 31.8 g/dL (30-36); MEAN PLATELET VOLUME 7.3 FL (6.5-11.5); MONOCYTE# 1.5 X10e3 (0-1.0); MONOCYTE% 10.5 % (3.0-12.0); NEUTROPHIL% 72.3 % (40-75); PLATELET COUNT 448 X10e3 (140-420); RED BLOOD COUNT 3.26 X10e (3.90-5.60); RED CELL DISTRIBUTION WIDTH 13.6 % (11.0-15.5); WHITE BLOOD COUNT 13.9 X10e3 (4.0-10.5)
[2017-03-23 05:49] LABS: DIFF IND YES
[2017-03-23 06:33] LABS: ALBUMIN SERUM 2.6 g/dL (3.5-5.0); ALKALINE PHOSPHATASE 362 U/L (32-92); ALT (SGPT) 25 U/L (10-40); AST (SGOT) 40 U/L (10-42); BILIRUBIN,TOTAL 0.2 mg/dL (0.2-2.0); BLOOD UREA NITROGEN 21 mg/dL (9-23); CALCIUM SERUM 8.7 mg/dL (8.4-10.2); CARBON DIOXIDE 28 mmol/L (22-31); CHLORIDE 103 mmol/L (100-111); CREATININE SERUM 0.5 mg/dL (0.6-1.4); GLOM FILT RATE Estimated 139.5 mL/min (>60); GLUCOSE FASTING 114 mg/dL (70-110); POTASSIUM 3.6 mmol/L (3.5-5.1); PROTEIN TOTAL SERUM 7.2 g/dL (6.0-8.3); SODIUM 140 mmol/L (135-145)
[2017-03-23 06:35] LABS: ANISOCYTOSIS SL; BILIRUBIN, DIRECT <0.1 mg/dL (0.0-0.2); BILIRUBIN,INDIRECT 0.1 mg/dL (0.0-0.9); PLATELET ESTIMATE INCREASED (NORMAL); POLYCHROMASIA SL
[2017-03-24 05:43] LABS: BASOPHIL% 0.4 % (0-2.5); EOSINOPHIL# 0.5 X10e3 (0-0.7); EOSINOPHIL% 4.8 % (0.0-7.0); HEMATOCRIT 28.9 % (38.0-50.0); LYMPHOCYTE# 1.8 X10e3 (1.0-3.5); LYMPHOCYTE% 15.7 % (17.0-45.0); MEAN CORPUSCULAR HGB CONC 31.1 g/dL (30-36); MEAN PLATELET VOLUME 7.5 FL (6.5-11.5); MONOCYTE# 1.4 X10e3 (0-1.0); MONOCYTE% 12.2 % (3.0-12.0); NEUTROPHIL# 7.5 X10e3 (1.5-7.1); NEUTROPHIL% 66.9 % (40-75); PLATELET COUNT 501 X10e3 (140-420); RED BLOOD COUNT 3.21 X10e (3.90-5.60); RED CELL DISTRIBUTION WIDTH 13.7 % (11.0-15.5); WHITE BLOOD COUNT 11.2 X10e3 (4.0-10.5)
[2017-03-24 05:52] LABS: DIFF IND NO
[2017-03-24 06:31] LABS: CALCIUM SERUM 8.3 mg/dL (8.4-10.2); CREATININE SERUM 0.5 mg/dL (0.6-1.4); GLOM FILT RATE Estimated 139.5 mL/min (>60); MAGNESIUM 1.8 mg/dL (1.6-3.0); PHOSPHOROUS 2.7 mg/dL (2.5-4.6); POTASSIUM 3.6 mmol/L (3.5-5.1)
[2017-03-24 16:16] LABS: URINE SOURCE CATH
[2017-03-24 16:25] LABS: URINE APPEARANCE TURBID; URINE BILIRUBIN NEG (NEG); URINE BLOOD 3+ (NEG); URINE COLOR YELLOW; URINE GLUCOSE NEG (NEG); URINE KETONE TRACE (NEG); URINE LEUKOCYTE ESTERASE NEG (NEG); URINE NITRATE NEG (NEG); URINE PH 7.5 (5-8); URINE PROTEIN 1+ (NEG); URINE SPECIFIC GRAVITY 1.022 (1.003-1.035); URINE UROBILINOGEN 0.2 MG/DL (NEG)
[2017-03-24 16:28] LABS: URBCS1 AUWI INNUM /[HPF] (0-2); URINE BACTERIA AUWI NEG (NEGATIVE); URINE SQUAMOUS EPITHELIAL CELL OCC /[HPF]
[2017-03-25 05:38] LABS: BASOPHIL# 0.1 X10e3 (0-0.3); BASOPHIL% 0.8 % (0-2.5); EOSINOPHIL# 0.6 X10e3 (0-0.7); EOSINOPHIL% 5.4 % (0.0-7.0); HEMATOCRIT 29.8 % (38.0-50.0); HEMOGLOBIN 9.5 gm/dL (13.0-16.0); LYMPHOCYTE# 1.7 X10e3 (1.0-3.5); LYMPHOCYTE% 16.6 % (17.0-45.0); MEAN CELL VOLUME 89.2 FL (83-96); MEAN CORPUSCULAR HEMOGLOBIN 28.5 PG (28-34); MEAN CORPUSCULAR HGB CONC 31.9 g/dL (30-36); MEAN PLATELET VOLUME 7.5 FL (6.5-11.5); MONOCYTE# 1.3 X10e3 (0-1.0); MONOCYTE% 12.6 % (3.0-12.0); NEUTROPHIL# 6.7 X10e3 (1.5-7.1); NEUTROPHIL% 64.6 % (40-75); PLATELET COUNT 628 X10e3 (140-420); RED BLOOD COUNT 3.34 X10e (3.90-5.60); RED CELL DISTRIBUTION WIDTH 13.5 % (11.0-15.5); WHITE BLOOD COUNT 10.3 X10e3 (4.0-10.5)
[2017-03-25 05:39] LABS: DIFF IND NO
[2017-03-25 06:07] LABS: CALCIUM SERUM 8.5 mg/dL (8.4-10.2); CREATININE SERUM 0.5 mg/dL (0.6-1.4); GLOM FILT RATE Estimated 139.5 mL/min (>60); POTASSIUM 3.6 mmol/L (3.5-5.1)
[2017-03-26 06:05] LABS: BASOPHIL# 0.1 X10e3 (0-0.3); BASOPHIL% 0.7 % (0-2.5); EOSINOPHIL# 0.6 X10e3 (0-0.7); EOSINOPHIL% 6.3 % (0.0-7.0); HEMATOCRIT 28.9 % (38.0-50.0); HEMOGLOBIN 9.4 gm/dL (13.0-16.0); LYMPHOCYTE# 1.8 X10e3 (1.0-3.5); LYMPHOCYTE% 18.1 % (17.0-45.0); MEAN CELL VOLUME 89.3 FL (83-96); MEAN CORPUSCULAR HGB CONC 32.5 g/dL (30-36); MEAN PLATELET VOLUME 7.4 FL (6.5-11.5); MONOCYTE# 1.4 X10e3 (0-1.0); MONOCYTE% 13.4 % (3.0-12.0); NEUTROPHIL# 6.2 X10e3 (1.5-7.1); NEUTROPHIL% 61.5 % (40-75); PLATELET COUNT 683 X10e3 (140-420); RED BLOOD COUNT 3.24 X10e (3.90-5.60); RED CELL DISTRIBUTION WIDTH 13.3 % (11.0-15.5); WHITE BLOOD COUNT 10.1 X10e3 (4.0-10.5)
[2017-03-26 06:06] LABS: DIFF IND NO
[2017-03-26 07:03] LABS: CALCIUM SERUM 8.6 mg/dL (8.4-10.2); CREATININE SERUM 0.4 mg/dL (0.6-1.4); GLOM FILT RATE Estimated 152.9 mL/min (>60); POTASSIUM 4.5 mmol/L (3.5-5.1)
[2017-03-27 06:01] LABS: BASOPHIL# 0.1 X10e3 (0-0.3); BASOPHIL% 0.7 % (0-2.5); EOSINOPHIL# 0.7 X10e3 (0-0.7); HEMATOCRIT 30.4 % (38.0-50.0); HEMOGLOBIN 9.7 gm/dL (13.0-16.0); LYMPHOCYTE% 16.1 % (17.0-45.0); MEAN CELL VOLUME 89.5 FL (83-96); MEAN CORPUSCULAR HEMOGLOBIN 28.6 PG (28-34); MEAN CORPUSCULAR HGB CONC 31.9 g/dL (30-36); MEAN PLATELET VOLUME 7.6 FL (6.5-11.5); MONOCYTE# 1.3 X10e3 (0-1.0); MONOCYTE% 10.5 % (3.0-12.0); NEUTROPHIL# 8.2 X10e3 (1.5-7.1); NEUTROPHIL% 66.7 % (40-75); PLATELET COUNT 762 X10e3 (140-420); RED BLOOD COUNT 3.39 X10e (3.90-5.60); RED CELL DISTRIBUTION WIDTH 13.9 % (11.0-15.5); WHITE BLOOD COUNT 12.3 X10e3 (4.0-10.5)
[2017-03-27 06:02] LABS: DIFF IND YES
[2017-03-27 06:25] LABS: PLATELET ESTIMATE INCREASED (NORMAL)
[2017-03-27 06:27] LABS: RBC NORMAL YES
[2017-03-27 06:51] LABS: CALCIUM SERUM 9.1 mg/dL (8.4-10.2); CREATININE SERUM 0.5 mg/dL (0.6-1.4); GLOM FILT RATE Estimated 139.5 mL/min (>60); PHOSPHOROUS 3.3 mg/dL (2.5-4.6)
[2017-03-28 04:38] LABS: BASOPHIL# 0.2 X10e3 (0-0.3); BASOPHIL% 1.3 % (0-2.5); EOSINOPHIL# 0.7 X10e3 (0-0.7); EOSINOPHIL% 4.6 % (0.0-7.0); HEMATOCRIT 30.4 % (38.0-50.0); HEMOGLOBIN 9.8 gm/dL (13.0-16.0); LYMPHOCYTE# 1.9 X10e3 (1.0-3.5); LYMPHOCYTE% 13.1 % (17.0-45.0); MEAN CELL VOLUME 89.5 FL (83-96); MEAN CORPUSCULAR HEMOGLOBIN 28.7 PG (28-34); MEAN CORPUSCULAR HGB CONC 32.1 g/dL (30-36); MONOCYTE# 1.4 X10e3 (0-1.0); MONOCYTE% 9.6 % (3.0-12.0); NEUTROPHIL# 10.2 X10e3 (1.5-7.1); NEUTROPHIL% 71.4 % (40-75); PLATELET COUNT 814 X10e3 (140-420); WHITE BLOOD COUNT 14.2 X10e3 (4.0-10.5)
[2017-03-28 04:43] LABS: DIFF IND NO
[2017-03-28 04:49] LABS: BUN/CREATININE RATIO 41.66; CALCIUM SERUM 8.9 mg/dL (8.4-10.2); CREATININE SERUM 0.6 mg/dL (0.6-1.4); GLOM FILT RATE Estimated 129.4 mL/min (>60); POTASSIUM 3.8 mmol/L (3.5-5.1)
[2017-03-29 06:50] LABS: BASOPHIL# 0.2 X10e3 (0-0.3); BASOPHIL% 1.4 % (0-2.5); EOSINOPHIL# 0.7 X10e3 (0-0.7); EOSINOPHIL% 4.6 % (0.0-7.0); HEMATOCRIT 32.2 % (38.0-50.0); HEMOGLOBIN 10.1 gm/dL (13.0-16.0); LYMPHOCYTE% 20.8 % (17.0-45.0); MEAN CORPUSCULAR HEMOGLOBIN 28.1 PG (28-34); MEAN CORPUSCULAR HGB CONC 31.2 g/dL (30-36); MEAN PLATELET VOLUME 8.2 FL (6.5-11.5); MONOCYTE# 2.3 X10e3 (0-1.0); MONOCYTE% 16.3 % (3.0-12.0); NEUTROPHIL# 8.1 X10e3 (1.5-7.1); NEUTROPHIL% 56.9 % (40-75); PLATELET COUNT 745 X10e3 (140-420); RED BLOOD COUNT 3.58 X10e (3.90-5.60); RED CELL DISTRIBUTION WIDTH 14.4 % (11.0-15.5); WHITE BLOOD COUNT 14.3 X10e3 (4.0-10.5)
[2017-03-29 06:55] LABS: DIFF IND NO
[2017-03-30 05:13] LABS: HEMATOCRIT 28.7 % (38.0-50.0); HEMOGLOBIN 9.1 gm/dL (13.0-16.0); MEAN CELL VOLUME 90.9 FL (83-96); MEAN CORPUSCULAR HEMOGLOBIN 28.8 PG (28-34); MEAN CORPUSCULAR HGB CONC 31.7 g/dL (30-36); MEAN PLATELET VOLUME 7.9 FL (6.5-11.5); RED BLOOD COUNT 3.16 X10e (3.90-5.60); RED CELL DISTRIBUTION WIDTH 14.2 % (11.0-15.5); WHITE BLOOD COUNT 11.6 X10e3 (4.0-10.5)
[2017-03-30 05:25] LABS: CALCIUM SERUM 8.4 mg/dL (8.4-10.2); CREATININE SERUM 0.4 mg/dL (0.6-1.4); GLOM FILT RATE Estimated 152.9 mL/min (>60); POTASSIUM 3.5 mmol/L (3.5-5.1)
== END 2017-03-30 15:44 | DRG 207 ==
LOC: CED 16:07 → CEDOF 16:46 → CICCU3 03-14 06:36 → C5C 03-28 17:31
PROVIDERS: Emergency Medicine; Hospitalist; Internal Medicine; Internal Medicine Pulmonary Disease; Nurse Practitioner Family; Physician Assistant Medical
PROC: 0BH17EZ Insertion of Endotracheal Airway into Trachea, Via Natural or Artificial Opening (ICD-10-PCS; principal; 2017-03-13)
PROC: 5A1955Z Respiratory Ventilation, Greater than 96 Consecutive Hours (ICD-10-PCS; 2017-03-13)
PROC: 05HN33Z Insertion of Infusion Device into Left Internal Jugular Vein, Percutaneous Approach (ICD-10-PCS; 2017-03-13)
PROC: B544ZZA Ultrasonography of Left Jugular Veins, Guidance (ICD-10-PCS; 2017-03-13)
PROC: 05H633Z Insertion of Infusion Device into Left Subclavian Vein, Percutaneous Approach (ICD-10-PCS; 2017-03-24)
PROC: 02HV33Z Insertion of Infusion Device into Superior Vena Cava, Percutaneous Approach (ICD-10-PCS; 2017-03-26)
PROC: 0DH63UZ Insertion of Feeding Device into Stomach, Percutaneous Approach (ICD-10-PCS; 2017-03-27)
DX: J69.0 Pneumonitis due to inhalation of food and vomit (principal); R13.10 Dysphagia, unspecified; F73 Profound intellectual disabilities; J96.01 Acute respiratory failure with hypoxia; G40.812 Lennox-Gastaut syndrome, not intractable, without status epilepticus; J15.1 Pneumonia due to Pseudomonas; G80.9 Cerebral palsy, unspecified; G40.909 Epilepsy, unspecified, not intractable, without status epilepticus; D72.829 Elevated white blood cell count, unspecified; Z88.2 Allergy status to sulfonamides; K59.00 Constipation, unspecified; R50.9 Fever, unspecified; R19.7 Diarrhea, unspecified
CPT/HCPCS: 36415; 36600; 71010; 74000; 74230; 80048; 80053; 80076; 80185; 80200; 80202; 81003; 82150; 82553; 82803; 83605; 83690; 83735; 83880; 84100; 84484; 85025; 85027; 85610; 85730; 87040; 87070; 87086; 87186; 87205; 87493; 92611; 93005; 94002; 94003; 94640; 94660; 94760; 94761; 96361; 96365; 96366; 96375; 96376; 99285; C1887; C9254; G8996-GN; G8997-GN; G8998-GN; J0692; J1165; J1650; J1940; J1953; J2185; J2250; J2560; J3010; J3260; J3370; J3473

== ENCOUNTER 2017-04-01 08:09 | Inpatient (IN) | payer OTHER ==
--- NOTE | ~2017-04-01 | HP ---
Unit #: [id number] #: [id number] Patient: LUTHER RAMIREZ [id number] [address] [address] [id number] I MR#: [id number] NAME: LUTHER RAMIREZ ROOM: 306 Age: 37 Sex: M Admission Date: 04/01/2017 : 1980 Attending Physician: Dave Hansen M.D. HISTORY AND PHYSICAL ADMISSION DIAGNOSES 1. Dislodged percutaneous endoscopic gastrostomy tube. 2. History of recent acute hypoxemic respiratory failure with history of bilateral pneumonia. 3. History of Tamiment-Gastaut syndrome. 4. History of cerebral palsy and mental retardation. 5. History of aspiration pneumonitis in the past. 6. History of seizures. HISTORY OF PRESENT ILLNESS Mr. Luther Ramirez is a 37-year-old gentleman well known to our service secondary to multiple previous admissions for aspiration pneumonia and respiratory failure. He most recently was discharged from our service on March 30, 2017. He was brought back today after dislodged PEG tube. Initial evaluation in the ER with imaging studies showed some free air in the abdomen. Apparently, [facility] staff where patient resides tried to put the PEG tube back, however, missed the stomach, and then patient was brought into the ER. He is the one with severe mental retardation; therefore, I not able to obtain any further history. Neither am I able to obtain any review of systems. There is an aide present at the bedside with limited information. PAST MEDICAL HISTORY As above, history of seizure disorder, Lc-Gastaut syndrome, cerebral palsy, mental retardation, and frequent aspiration pneumonitis. PAST SURGICAL HISTORY 1. Right temporal craniotomy. 2. Myringotomy. 3. Right temporal lobectomy. 4. Gastrostomy tube placement. 5. History of VNS placement and then removal. HOME MEDICATIONS I do not have in front of me, but these will be clarified with the pharmacy, and patient will be restarted accordingly. ALLERGIES Ambien, sulfa, phenytoin, phenobarbital, carbamazepine, ampicillin, Bactrim, and gabapentin. FAMILY HISTORY Unremarkable. Unit #: [id number] #: [id number] Patient: LUTHER RAMIREZ SOCIAL HISTORY Patient resides at [facility]. No history of alcohol, tobacco, or drug abuse. PHYSICAL EXAMINATION GENERAL: Patient is 37-year-old gentleman not in acute distress. VITAL SIGNS: Blood pressure 142/85, heart rate anywhere from 90 to 124, temperature 98.7, and respirations 19. HEENT: Head is atraumatic. Pupils equal, round, and reactive to light. Oropharynx clear. NECK: Supple. No mass, no JVD, no bruits. CHEST: Diminished bilaterally. CARDIOVASCULAR: S1 and S2. No murmurs. ABDOMEN: Soft and nontender. Slightly distended. No acute abdominal signs. LOWER EXTREMITIES: Without any cyanosis, clubbing, or edema. NEUROLOGIC: Unobtainable. ASSESSMENT AND PLAN 1. Dislodged percutaneous endoscopic gastrostomy tube with some free air. Surgery was consulted and most likely will replace the percutaneous endoscopic gastrostomy tube. 2. History of acute hypoxemic respiratory failure, recently with multiple aspiration pneumonitis with chronic respiratory failure. Continue home bronchodilators. Continue oxygen. Consider Pulmonary evaluation. 3. History of Tamiment-Gastaut syndrome with history of cerebral palsy and mental retardation. 4. History of seizure disorder. Will ask the pharmacy to transfer the seizures medications to IV while there is no percutaneous endoscopic gastrostomy tube. 5. Dysphagia, status post percutaneous endoscopic gastrostomy tube. Needs replacement percutaneous endoscopic gastrostomy tube. 6. Gastrointestinal and deep venous thrombosis prophylaxis with some SCDs and proton pump inhibitor. 1. Dictated by Joe Selby/lorena TD: 04/01/2017 21:18 JOB #: [id number] HISTORY AND PHYSICAL Page 1 of 1 X Dave Hansen MD HISTORY AND PHYSICAL
--- NOTE | ~2017-04-01 | CO ---
Unit #: [id number] #: [id number] Patient: LUTHER DUNN [id number] [address] [address] [id number] I MR#: [id number] NAME: LUTHER DUNN [facility] Age: 37 Sex: M Admission Date: 04/01/2017 : 1980 Attending Physician: Dave Hansen M.D. Primary Care Physician: Dinah Pike CONSULTATION REPORT HISTORY OF PRESENT ILLNESS Mr. Dunn is a 37-year-old male resident of [place]. He was admitted to the hospital on April 01, 2017. Apparently, he had a PEG feeding tube placed last admission. He pulled it out at [place]. They replaced it. His abdomen began to swell and he was transported to the emergency room. Studies revealed the tube was in the peritoneum and he was taken for exploratory laparoscopy with correction. Apparently, he began having seizures yesterday and was intubated and we are asked to see in the ICU. PAST MEDICAL HISTORY 1. [place] Gastaut. 2. Cerebral palsy with severe mental retardation. 3. Intractable epilepsy. 4. History of vagal nerve stimulator, removed secondary to infection in 2016. 5. History of aspiration pneumonia, recurrent. 6. Right temporal craniotomy. 7. Myringotomy tube. 8. PEG tube placement. ALLERGIES Sulfa, phenobarbital is listed as an allergy, Haldol, mephenytoin, carbamazepine, ampicillin, sulfa, zolpidem, gabapentin, trazodone, minocycline. CURRENT MEDICATIONS 1. Ativan. 2. Depakote. 3. Diprivan. 4. Versed. 5. Protonix. 6. Pepcid. 7. Phenobarbital. 8. Vimpat. 9. Keppra. 10. DuoNeb. 11. Apparently, may also be on Flagyl. REVIEW OF SYSTEMS Not possible. FAMILY HISTORY Not possible, patient nonverbal. Unit #: [id number] #: [id number] Patient: LUTHER DUNN SOCIAL HISTORY Resident of [place]. No alcohol, tobacco, or illicit drugs. PHYSICAL EXAMINATION GENERAL: White male intubated, no distress, sedated. VITAL SIGNS: Blood pressure is 125/77, pulse 82, respiratory rate 16, afebrile. HEENT: Normocephalic and atraumatic. Pupils equal, round, and reactive. Sclerae nonicteric. Nasal passages patent. Orally intubated. NECK: Supple. Trachea midline. No cervical or supraclavicular lymphadenopathy. LUNGS: Fairly clear bilaterally. CARDIAC: Heart sounds distant. Regular rate and rhythm. Could not appreciate murmur, rub, or gallop. ABDOMEN: Binder in place. G tube in place. Healing upper mid abdominal scar. No hepatosplenomegaly. Bowel sounds present. EXTREMITIES: Without clubbing, cyanosis, or edema. NEUROLOGIC: Sedated. Pupils equal, round, and reactive. DIAGNOSTIC STUDIES LABORATORY: Arterial blood gas: A pH 7.39, pCO2 of 40, pO2 of 226 on 50%, assist control 14, tidal volume 550, and 5 of PEEP. Chemistries reviewed, unremarkable. Creatinine 0.5, sodium 137, potassium 3.7. White count 11,700, hematocrit 27.8, platelet count normal. IMAGING: Chest x-ray personally reviewed. ET tube okay. Central line in place. No infiltrates. IMPRESSION 1. Acute respiratory failure. 2. Intractable seizures. 3. Status post malposition of feeding tube. 4. Status post exploratory laparotomy. PLAN 1. Vent support. 2. Wean vent when seizures controlled. 3. Ulcer and deep venous thrombosis prophylaxis. Dictated by... Luis Alberto Watkins M.D. EUFEMIA/nicole TD: 04/09/2017 10:31 JOB #: [id number] Unit #: [id number] #: [id number] Patient: LUTHER DUNN CONSULTATION REPORT Page 1 of 1 X Luis Alberto Watkins MD X CONSULTATION REPORT
--- NOTE | ~2017-04-01 | CR72 ---
[facility] A Service of [facility] RADIOLOGY TEXT RESULTS PATIENT: LUTHER RAMIREZ LOCATION: C3A 306- : [birth year] UNIT #: [id number] AGE: [address]: Dave Hansen MD SEX: M ORDER DR: [id number] [facility] [address]. [place], [place] [address] [id number] MR#: [id number] Acc #: [id number] NAME: LUTHER RAMIREZ : 1980 SEX: M STUDY DATE/TIME: 04/01/2017 8:37 UNIT: [facility] ROOM: STUDY DESCRIPTION: CR Chest Single View Portable Attending Physician: Primitivo Hameed M.D. Ordering Physician: Primitivo Hameed M.D. Primary Care Physician: Dinah Pike MEDICAL IMAGING REPORT This report is preliminary unless electronic signature is present EXAM Portable chest x-ray, 04/01/2017. HISTORY Short of air. Additional history short of air beginning today. Weakness. Pulled G tube. TECHNIQUE AP radiograph of the chest is presented. COMPARISON 03/26/2017 FINDINGS Lung volumes remain low. Bronchovascular crowding. Linear interstitial prominence in the lungs bilaterally, not significantly changed. This likely reflects some degree of chronic change and atelectasis given the low lung volumes. There is no dense airspace disease, pleural effusion, or pneumothorax and no suspicious nodule. The heart is normal in size given lung volumes. No acute bony abnormality. Dictated by... Vitor May M.D. THIS IS AN ELECTRONICALLY VERIFIED REPORT Vitor May M.D. at 04/02/2017 10:53 PM VENTURA/johanny TD: 04/01/2017 11:44 JOB #: [id number] [facility] A Service [facility] RADIOLOGY TEXT RESULTS PATIENT: LUTHER RAMIREZ [facility] : [birth year] UNIT #: [id number] AGE: [address]: Dave Hansen MD SEX: M ORDER DR: MEDICAL IMAGING REPORT Page 1 of 1 COPY
--- NOTE | ~2017-04-01 | CR72 ---
[facility] A Service of [facility] & [facility] RADIOLOGY TEXT RESULTS PATIENT: LUTHER RAMIREZ LOCATION: [place] [address]-16 : [birth year] UNIT #: [id number] AGE: [address]: Dave Hansen MD SEX: M ORDER DR: [id number] [facility] [address]. [place], [place] [address] [id number] I MR#: [id number] Acc #: [id number] NAME: LUTHER RAMIREZ : 1980 SEX: M STUDY DATE/TIME: 04/28/2017 3:31 UNIT: [facility] ROOM: [facility] STUDY DESCRIPTION: CR Chest Single View Portable Attending Physician: Dave Hansen M.D. Ordering Physician: Vitor Scherer M.D. Primary Care Physician: Dinah Pike MEDICAL IMAGING REPORT This report is preliminary unless electronic signature is present EXAM Portable chest INDICATIONS Respiratory failure. PROCEDURE Frontal view chest. COMPARISON: 04/24/2017 FINDINGS Heart size stable. Persistent medial left lung base opacity. No visible pneumothorax. IMPRESSION Stable Dictated by... Mohan Lerma M.D. THIS IS AN ELECTRONICALLY VERIFIED REPORT Mohan Lerma M.D. at 04/28/2017 9:53 PM EED/joann TD: 04/28/2017 09:01 JOB #: [id number] MEDICAL IMAGING REPORT Page 1 of 1 COPY
--- NOTE | ~2017-04-01 | CR6 ---
[facility] A Service of [facility] & [facility] RADIOLOGY TEXT RESULTS PATIENT: LUTHER RAMIREZ LOCATION: CIC[facility] C[facility]3-16 : [birth year] UNIT #: [id number] AGE: [address]: Dave Hansen MD SEX: M ORDER DR: [id number] [facility] [address]. [place], [place] [address] [id number] I MR#: [id number] Acc #: [id number] NAME: LUTHER RAMIREZ : 1980 SEX: M STUDY DATE/TIME: 04/07/2017 7:29 UNIT: [facility] PCU ROOM: [facility] STUDY DESCRIPTION: CR Abdomen Portable Sng View Attending Physician: Dave Hansen M.D. Ordering Physician: Lisa De La Vega M.D. Primary Care Physician: Dinah Pike MEDICAL IMAGING REPORT This report is preliminary unless electronic signature is present EXAM AP of the abdomen. INDICATION Dislodged PEG tube. COMPARISON STUDIES Compared with 04/05/2017. FINDINGS There is decreased gaseous distension of the bowel. Midline surgical patti remain intact. Visualized osseous structures are stable. IMPRESSION Decreased gaseous distension of the bowel suggesting improved ileus. Dictated by... Luther Donohue M.D. THIS IS AN ELECTRONICALLY VERIFIED REPORT Luther Donohue M.D. at 04/08/2017 5:12 PM SANDI/johanny TD: 04/07/2017 09:44 JOB #: [id number] MEDICAL IMAGING REPORT Page 1 of 1 COPY
--- NOTE | ~2017-04-01 | EE ---
Unit #: [id number] #: [id number] Patient: LUTHER RAMIREZ [id number] [place] [address] [id number] I MR#: [id number] NAME: LUTHER RAMIREZ : 1980 SEX: M STUDY DATE/TIME: UNIT: C3A PCU ROOM: 306 STUDY DESCRIPTION: EEG Attending Physician: Dave Hansen M.D. Primary Care Physician: Dinah Pike NEURODIAGNOSTICS REPORT EXAM EEG CHIEF COMPLAINT Seizures. DESCRIPTION EEG was obtained in confused state using the 10-20 [employer] Montage System. EEG showed high amplitude delta slow wave activity throughout the recording. There were frequent sharp discharges seen from right frontocentral and left frontotemporal regions. These discharges were more frequent from the left frontotemporal area where the discharges at times were rhythmic. IMPRESSION Findings are consistent with right frontocentral and left frontotemporal increased seizure tendency as well as left frontotemporal seizures superimposed on moderate diffuse cerebral dysfunction. Dictated by... Joe Aguayo/srinath TD: 04/07/2017 07:16 JOB #: [id number] NEURODIAGNOSTICS REPORT Page 1 of 1 X Alyce Montiel MD NEURODIAGNOSTICS REPORT
--- NOTE | ~2017-04-01 | A ---
[facility] Nutrition Therapy DATE: 04/22/17 Patient: LUTHER RAMIREZ Physician: OLIVE Address: [facility] Room/Bed: [address], Zip: [place] [address] Admit Date: 04/01/17 Date of : [birth year] Height: 5 3 Weight: 137 62.5 NUTRITIONAL ASSESSMENT: REASON: PMH: Anthropometrics: Labs: Meds: I/O & Bowel function: Skin Integrity: Estimated Nutrition Needs: Assessment: Dx: Intervention: Monitoring, Evaluation and Goals: Recommendations: Respectfully, SHANIKA PAGE RD, LD Food and Nutritional Services [facility] cc: client file
--- NOTE | ~2017-04-01 | FU ---
[facility] Nutrition Therapy DATE: 04/15/17 Patient: LUTHER RAMIREZ Physician: OLIVE Address: [facility] Room/Bed: [address], Zip: [place] [address] Admit Date: 04/01/17 Date of : [birth year] Height: 5 3 Weight: 112 51 NUTRITION MONITORING/FOLLOW-UP: Reason: Nutrition follow up Anthropometrics: Wt 04/15: 51 kg Labs: BUN 5 Creat 0.4 Ca++ 7.7 Meds: MgSO4, KCl, NaCl, phenytoin q 8 hrs, pepcid (IV), zofran I&O's: 658/7, last BM 04/15 Skin: No changes noted Edema: none noted Estimated Nutrition Needs: 6818-3966 kcals (30-35 kcals/kg) 47-61 grams protein (1.0-1.3 grams/kg) Assessment: Chart reviewed, events noted. Pt remains in ICU, and was extubated yesterday. Pt is now in 3 L nasal cannula. RN reports the pt is tolerating enteral nutrition. he is currently receiving Jevity 1.5 @ 40 mL/hr. Please note, the pt is receiving Phenytoin via PEG q 8 hrs and, therefore, the enteral nutrition goal rate will be adjusted. Per pump history, the pt has received 59% goal volume of enteral nutrition over the past 24 hrs and 44% over the past 48 hrs. Please see recommendations below. Dx: Inadequate protein-energy intake RT enteral nutrition being held for medications, procedures AEB pt received 59% enteral goal volume over the past 24 hrs- ACTIVE Intervention: 1. Change enteral goal rate due to medication Monitoring, Evaluation and Goals: 1. Enteral nutrition; provide > 80% goal volume x 24 hrs- NOT MET 2. Weight; prevent weight loss, promote gradual weight gain- IN PROGRESS 3. GI; promote regular GI function- MET/ IN PROGRESS Recommendations: 1. Due to the pt receiving Phenytoin q 8 hrs, enteral nutrition will need to be held for a total of 6 hrs daily (one hour before and one hour after administration). Jevity 1.5 will need to be increased to 55 mL/hr (x 18 hrs) to provide: [facility] Nutrition Therapy DATE: 04/15/17 Patient: LUTHER RAMIREZ Physician: OLIVE Address: [facility] Room/Bed: [address], Zip: [place] [address] Admit Date: 04/01/17 Date of : [birth year] Height: 5 3 Weight: 902 92 9896 kcals/ 63 grams protein/ 752 mL free H20 2. Recommend continuing continuous enteral nutrition at this time, as the pt has a h/o recurrent aspiration PNA and was previously receiving bolus enteral nutrition. 3. Optimize the pt's enteral schedule as recommended above in order to provide >80% goal volume of enteral nutrition. Status: Pt is at moderate nutritional risk. Respectfully, SHANIKA PAGE RD, LD Food and Nutritional Services [facility] cc: client file
--- NOTE | ~2017-04-01 | CR72 ---
[facility] A Service of [facility] & [facility] RADIOLOGY TEXT RESULTS PATIENT: LUTHER RAMIREZ LOCATION: [address] : [birth year] UNIT #: [id number] AGE: [address]: Dave Hansen MD SEX: M ORDER DR: [id number] [facility] [address]. [place], [place] [address] [id number] I MR#: [id number] Acc #: [id number] NAME: LUTHER RAMIREZ : 1980 SEX: M STUDY DATE/TIME: 04/17/2017 04:39 UNIT: [facility] ROOM: [facility] STUDY DESCRIPTION: CR Chest Single View Portable Attending Physician: Dave Hansen M.D. Ordering Physician: Vitor Scherer M.D. Primary Care Physician: Dinah Pike MEDICAL IMAGING REPORT This report is preliminary unless electronic signature is present EXAM Portable chest 04/17 at 0439 INDICATIONS Fever, respiratory failure. FINDINGS AP portable chest compared with 04/15/2017. Left arm PICC is at cavoatrial junction. Heart size normal. Right lung is now clear. There is continued infiltrate or atelectasis in the left oit-ud-sltax lung, there is a trace amount of left pleural fluid. No pneumothorax. Dictated by... Joseph Nielson Jr., M.D. THIS IS AN ELECTRONICALLY VERIFIED REPORT Joseph Nielson Jr., M.D. at 04/20/2017 8:36 AM IAN/ricardo TD: 04/17/2017 07:14 JOB #: [id number] MEDICAL IMAGING REPORT Page 1 of 1 COPY
--- NOTE | ~2017-04-01 | CR72 ---
[facility] A Service of [facility] & [facility] RADIOLOGY TEXT RESULTS PATIENT: LUTHER RAMIREZ LOCATION: [place] [address]-16 : [birth year] UNIT #: [id number] AGE: [address]: Dave Hansen MD SEX: M ORDER DR: [id number] [facility] [address]. [place], [place] [address] [id number] I MR#: [id number] Acc #: [id number] NAME: LUTHER RAMIREZ : 1980 SEX: M STUDY DATE/TIME: 04/24/2017 5:13 UNIT: [facility] ROOM: [facility] STUDY DESCRIPTION: CR Chest Single View Portable Attending Physician: Dave Hansen M.D. Ordering Physician: Vitor Scherer M.D. Primary Care Physician: Dinah Pike MEDICAL IMAGING REPORT This report is preliminary unless electronic signature is present EXAM Single view chest INDICATION Shortness of air. Respiratory failure. FINDINGS Single portable AP view of the chest compared to 04/23/2017. Tracheostomy tube and left PICC remain in place. Left basilar airspace opacity and/or small effusion is similar to the prior study. No pneumothorax. IMPRESSION No significant change. Dictated by... Jeremy Santana M.D. THIS IS AN ELECTRONICALLY VERIFIED REPORT Jeremy Santana M.D. at 04/28/2017 7:03 AM PAPO/meka TD: 04/24/2017 06:25 JOB #: [id number] MEDICAL IMAGING REPORT Page 1 of 1 COPY
--- NOTE | ~2017-04-01 | FU ---
[facility] Nutrition Therapy DATE: 04/20/17 Patient: LUTHER RAMIREZ Physician: OLIVE Address: [facility] Room/Bed: [address], Zip: [place] [address] Admit Date: 04/01/17 Date of : [birth year] Height: 5 3 Weight: 139 63.5 NUTRITION MONITORING/FOLLOW-UP: Reason: Enteral nutrition follow-up Admitting Dx: 37 y/o male admitted with seizures, PEG dislodgement with free air Anthropometrics: Ht: 61", admission wt: 46.8, current wt: 63.5 kg, weight range since admission: 46.8-71 kg (?accuracy), BMI: 19.5 (normal; based on admission wt) 04/19 Labs: Na 148, glucose 58, POC 49-154 Meds: Reglan (added 04/17), MgSO4, KCL, NACL, Pepcid, IV Phenytoin, Zofran prn, Propofol (currently off but has been running @ 5.3 ml/hr per RN providing 140 lipid kcals) I&O's: 3008/2029, last BM 04.19, abdomen soft and non-distended Skin: Redness moo area/coccyx, healed scars noted Edema: BUE 1+, BLE trace, scrotum pitting Estimated Nutrition Needs: 3502-1462 kcals per day (30-35 kcals/kg admission wt) 47-61 g protein per day (1-1.3 g/kg admission wt) Fluids consistent with kcal needs or per MD Assessment: Chart reviewed, events noted. Patient was reintubated on the morning of 04/17, Propofol restarted. 1100 ml GRV noted on 04/17, EN on hold over the weekend. CT of abdomen showed fluid in abdomen, concern for g-tube leak. Note weight ranges from 46.8-71 kg since admission, ?accuracy. Patient appears 46.8 kg. Per nursing will restart EN today, however it should be confirmed that he doesn't need his g-tube replaced. Propofol is currently off but nursing reports it has been running @ 5.3 ml/hr, providing 140 lipid kcals. No updated triglyceride lab available. Note Phenytoin now being given through IV. Plan back to [place] [facility] [place]. See nutrition goals, dx and recs as stated below. Will continue to follow. Dx: Inadequate protein energy intake r/t EN held for meds and procedures AEB 59% goal volume received over 24 hours - NO LONGER RELEVANT, SEE NEW DX New nutrition dx: Inadequate protein energy intake r/t possible g-tube leak, high GRV AEB EN held x 3 days. Intervention: Restart EN if safe, check triglycerides [facility] Nutrition Therapy DATE: 04/20/17 Patient: LUTHER RAMIREZ Physician: OLIVE Address: [facility] Room/Bed: [address], Zip: [place] [address] Admit Date: 04/01/17 Date of : [birth year] Height: 5 3 Weight: 139 63.5 Monitoring, Evaluation and Goals: 1. EN to provide > 80% goal volume x 24 hours - NOT MET (EN held over weekend) 2. Promote a gradual weight gain - NO LONGER RELEVANT (wt ranges 48.6-71 kg since admission) 3. GI function WNL - IN PROGRESS Revision of nutrition goals: 1. EN consistent with estimated needs. 2. GRV < 400 ml. 3. Promote normal GI function. 4. Glucose, lytes, triglycerides WNL. 5. Weight maintenance. Monitor: Per protocol, criteria to determine if above goals met Recommendations: 1. If it has been confirmed the patient does not have a g-tube leak restart enteral nutrition with Jevity 1.5 @ 20 ml/hr and increase by 10 ml q 8 hours until goal rate of 40 ml/hr is reached. This is the patient's goal rate WITH or WITHOUT Propofol (Propofol has been running @ 5.3 ml/hr which provides an additional 140 lipid kcals). WITH kcals from Propofol this nutrition regimen will provide 1580 kcals, 61 g protein and 730 ml water. Once at goal rate add free water flushes of 250 ml q 4 hours or per MD noting hypernatremia. 2. If Propofol is D/C continue the same EN regimen, which will provide 1440 kcals, 61 g protein and 730 ml water. 3. Check triglycerides with next lab draw. Monitor glucose and prevent hypoglycemic episodes. 4. Continue Reglan. Do not stop enteral feeds for residuals < 400 ml. For residuals > 400 ml do not hold feeding and measure again in 4 hours. If 2nd measurement is > 400 ml hold feeding and continue to reassess every 4 hours. Resume feeds when GRV is < 400 ml. Status: Moderate nutrition risk Respectfully, [facility] Nutrition Therapy DATE: 04/20/17 Patient: LUTHER RAMIREZ Physician: OLIVE Address: [facility] Room/Bed: [address], Zip: [place] [address] Admit Date: 04/01/17 Date of : [birth year] Height: 5 3 Weight: [address], LD Food and Nutritional Services [facility] cc: client file
--- NOTE | ~2017-04-01 | CR7 ---
[facility] A Service of [facility] & [facility] RADIOLOGY TEXT RESULTS PATIENT: LUTHER RAMIREZ LOCATION: [address] : [birth year] UNIT #: [id number] AGE: [address]: Dave Hansen MD SEX: M ORDER DR: [id number] [facility] [address] [facility]. [place], [place] [address] [id number] I MR#: [id number] Acc #: [id number] NAME: LUTHER RAMIREZ : 1980 SEX: M STUDY DATE/TIME: 04/17/2017 10:23 UNIT: [facility] ROOM: [facility] STUDY DESCRIPTION: CR Abdomen Single AP View Attending Physician: Dave Hansen M.D. Ordering Physician: Chantelle Lott M.D. Primary Care Physician: Dinah Pike MEDICAL IMAGING REPORT This report is preliminary unless electronic signature is present EXAM AP abdomen, 04/17/2017 at 10:23. HISTORY Verify PEG placement FINDINGS Additional repeat AP abdomen was requested. Contrast is seen within the left upper quadrant of the abdomen. It appears to have more smooth margination over the superior margin, and is thought to be contained within the gastric fundus, extending toward the esophagogastric junction, suggesting satisfactory PEG tube placement within the stomach. No gross contrast extravasation is seen. Abnormally dilated small bowel loops worrisome for small bowel obstruction. Dictated by... Chantelle Lott M.D. THIS IS AN ELECTRONICALLY VERIFIED REPORT Chantelle Lott M.D. at 04/20/2017 8:32 AM NAJMA/johanny TD: 04/17/2017 11:54 JOB #: [id number] MEDICAL IMAGING REPORT Page 1 of 1 COPY
--- NOTE | ~2017-04-01 | CR72 ---
[facility] A Service of [facility] & [facility] RADIOLOGY TEXT RESULTS PATIENT: LUTHER RAMIREZ LOCATION: [place] [address]-16 : 81 UNIT #: [id number] AGE: [address]: Dave Hansen MD SEX: M ORDER DR: [id number] [facility] [address] [facility]. [place], [place] [address] [id number] I MR#: [id number] Acc #: [id number] NAME: LUTHER RAMIREZ : 1980 SEX: M STUDY DATE/TIME: 04/23/2017 3:43 UNIT: [facility] ROOM: [facility] STUDY DESCRIPTION: CR Chest Single View Portable Attending Physician: Dave Hansen M.D. Ordering Physician: Vitor Scherer M.D. Primary Care Physician: Dinah Pike MEDICAL IMAGING REPORT This report is preliminary unless electronic signature is present EXAM Single view chest INDICATION Respiratory failure. FINDINGS Single portable AP view of the chest compared to 04/22/2017. Support lines and tubes remain in place. Heart and mediastinal contours are unchanged. Bibasilar airspace opacities and/or small effusions are similar to the prior study. No pneumothorax. IMPRESSION No interval change. Dictated by... Jeremy Santana M.D. THIS IS AN ELECTRONICALLY VERIFIED REPORT Jeremy Santana M.D. at 04/23/2017 5:43 AM PAPO/edwardo TD: 04/23/2017 04:56 JOB #: [id number] MEDICAL IMAGING REPORT Page 1 of 1 COPY
--- NOTE | ~2017-04-01 | CR269 ---
[facility] A Service of [facility] RADIOLOGY TEXT RESULTS PATIENT: LUTHER RAMIREZ LOCATION: [place] 306-01 : 81 UNIT #: [id number] AGE: [address]: Dave Hansen MD SEX: M ORDER DR: [id number] [facility] [address] [facility]. [place], [place] [address] [id number] I MR#: [id number] Acc #: [id number] NAME: LUTHER RAMIREZ : 1980 SEX: M STUDY DATE/TIME: 04/07/2017 9:15 UNIT: [facility] ROOM: 306 STUDY DESCRIPTION: CR Upper GI and SBFT Attending Physician: Dave Hansen M.D. Ordering Physician: Lisa De La Vega M.D. Primary Care Physician: Dinah Pike [facility] IMAGING REPORT This report is preliminary unless electronic signature is present EXAM Upper GI small bowel follow through, 04/07 HISTORY Patient has increased residuals from recently placed G-tube. FINDINGS Initially, the existing gastrostomy tube was injected with water soluble contrast. This confirmed appropriate tube placement within the stomach. No extraluminal contrast was seen. Then, the tube was injected with thin barium contrast as well as some tap water to flush the tube. The stomach as a grossly normal appearance. There is prompt emptying into the duodenum. Transit time through the small bowel is within normal limits. Contrast is well into the colon within two hours. No bowel obstruction is seen. No significant small bowel dilatation is identified. Eight total images were obtained. Fluoro time was 1.1 minutes. IMPRESSION G-tube confirmed within the stomach. No extraluminal contrast. Stomach is grossly normal in appearance. Small bowel is unremarkable. No obstruction is seen. Transit time is within normal limits. Contrast is well into the right hemicolon within two hours. Dictated by... Joseph Nielson Jr., M.D. THIS IS AN ELECTRONICALLY VERIFIED REPORT Joseph Nielson Jr., M.D. at 04/07/2017 4:48 PM IAN/katharine TD: 04/07/2017 14:54 JOB #: [id number] [facility] A Service of [facility] RADIOLOGY TEXT RESULTS PATIENT: LUTHER RAMIREZ LOCATION: [facility] 306-01 : 81 UNIT #: [id number] AGE: [address]: Dave Hansen MD SEX: M ORDER DR: MEDICAL IMAGING REPORT Page 1 of 1 COPY
--- NOTE | ~2017-04-01 | CR4 ---
[facility] A Service of [facility] RADIOLOGY TEXT RESULTS PATIENT: LUTHER RAMIREZ LOCATION: [facility] 306 : 81 UNIT #: [id number] AGE: [address]: Dave Hansen MD SEX: M ORDER DR: [id number] [place] [id number] [facility]. [place], [place] [address] [id number] I MR#: [id number] Acc #: [id number] NAME: LUTHER RAMIREZ : 1980 SEX: M STUDY DATE/TIME: 04/05/2017 10:35 UNIT: A PCU ROOM: [facility] STUDY DESCRIPTION: CR Abdomen Flat Upright or Dec Attending Physician: Dave Hansen M.D. Ordering Physician: Dave Hansen M.D. Primary Care Physician: Dinah Pike MEDICAL IMAGING REPORT This report is preliminary unless electronic signature is present EXAM Abdomen 04/05/2017 HISTORY 37-year-old male with abdominal pain and distension for 2 days. Ileus. COMPARISON Abdomen 04/03/2017 FINDINGS 2 frontal supine and upright views of the abdomen were performed. There are again noted multiple mildly dilated gas-filled loops of bowel throughout the abdomen. The pattern is similar in appearance to prior examination and again suggestive of postoperative ileus. Midline abdominal sutures are again noted. No free intraperitoneal air. IMPRESSION No significant change in multiple mildly gas-distended loops of bowel. Findings again suggestive of postoperative ileus. No free intraperitoneal air visualized. Dictated by... Roldan Borjas M.D. THIS IS AN ELECTRONICALLY VERIFIED REPORT Roldan Borjas M.D. at 04/05/2017 2:15 PM Pedro TD: 04/05/2017 13:01 JOB #: [id number] [facility]ICAL IMAGING RE[facility] A Service of [facility] RADIOLOGY TEXT RESULTS PATIENT: LUTHER RAMIREZ LOCATION: [facility] 306- : [birth year] UNIT #: [id number] AGE: [address]: Dave Hansen MD SEX: M ORDER DR: Page 1 of 1 COPY
--- NOTE | ~2017-04-01 | CO ---
Unit #: [id number] #: [id number] Patient: LUTHER DUNN [id number] [address] [address] [id number] I MR#: [id number] NAME: LUTHER DUNN ROOM: 306 Age: 37 Sex: M Admission Date: 04/01/2017 : 1980 Attending Physician: Dave Hansen M.D. Primary Care Physician: Dinha Pike Requesting Physician: Dave Hansen M.D. Consultation Date: 04/01/2017 CONSULTATION REPORT REASON FOR CONSULTATION 1. Dislodged G-tube. 2. Pneumoperitoneum. HISTORY OF PRESENT ILLNESS Thank you very much for asking us to see Mr. Dunn. He is a 37-year-old white male from [place] who has severe mental retardation. He had a PEG tube placed five days ago. He pulled this out this morning and a replacement G-tube was replaced by the staff at [place]. It is unclear, but tube feedings may have been initiated. The position was not checked. The patient appeared to be uncomfortable and came to the emergency room for further evaluation. He was found to have pneumoperitoneum. A contrast study was ordered and on plain films and on CT scan, there is evidence of extravasation and the balloon appears to be outside the gastric lumen. He presents at this time for further evaluation and treatment. PAST MEDICAL HISTORY 1. Seizure disorder. 2. Mental retardation. PAST SURGICAL HISTORY 1. Temporal lobectomy. 2. Small bowel resection. 3. G-tube in the past. 4. Myringotomy. 5. Temporal craniotomy. 6. PEG tube placement. HOME MEDICATIONS Please see medication reconciliation sheet. ALLERGIES 1. Sulfa. 2. Ampicillin. 3. Sulfamethoxazole. 4. Zolpidem. 5. Gabapentin. 6. Trazodone. 7. Minocycline. SOCIAL HISTORY No tobacco or alcohol use. Unit #: [id number] #: [id number] Patient: LUTHER DUNN IMMUNIZATION STATUS Unknown. REVIEW OF SYSTEMS Not obtainable. PHYSICAL EXAMINATION VITAL SIGNS: Temperature 97.6, pulse 92, respirations 18, blood pressure 146/79. GENERAL: Well-developed white male in no apparent distress with contracted lower extremities. HEENT: Sclerae nonicteric. NECK: Supple. No thyromegaly or adenopathy. BACK: No CVA or spinous tenderness. ABDOMEN: Moderately distended, soft. No rebound, peritoneal signs or masses. A G-tube is still coming through the skin in the PEG site. DIAGNOSTIC STUDIES LABORATORY: All normal CMP. CBC white blood cell count 27.5, hemoglobin 12. Urinalysis negative. IMPRESSION This is a 37-year-old white male who had a recent placement of PEG tube. He pulled this out this morning and a replacement was placed and it is not in proper position. The patient, at this point, needs exploratory laparotomy to wash out his abdomen and most likely place a new gastrostomy tube. All of this was fully discussed with Dr. Scott who will be performing the procedure and permission will be obtained from the power of managing attorney. Dictated by... Joe Mohr/america TD: 04/01/2017 22:52 JOB #: [id number] CONSULTATION REPORT Page 1 of 1 X Jose De Jesus Thomas MD X CONSULTATION REPORT
--- NOTE | ~2017-04-01 | CR72 ---
[facility] A Service of [facility] & [facility] RADIOLOGY TEXT RESULTS PATIENT: LUTHER RAMIREZ LOCATION: [address] : [birth year] UNIT #: [id number] AGE: [address]: Dave Hansen MD SEX: M ORDER DR: [id number] [facility] [address] [facility]. [place], [place] [address] [id number] I MR#: [id number] Acc #: [id number] NAME: LUTHER RAMIREZ : 1980 SEX: M STUDY DATE/TIME: 04/15/2017 5:06 UNIT: [facility] ROOM: [facility] STUDY DESCRIPTION: CR Chest Single View Portable Attending Physician: Dave Hansen M.D. Ordering Physician: Vitor Scherer M.D. Primary Care Physician: Dinah Pike MEDICAL IMAGING REPORT This report is preliminary unless electronic signature is present EXAM Portable chest HISTORY Followup surgery, fever, respiratory failure since 04/01. FINDINGS Today's portable view of the chest is compared with yesterday's study. There are low lung volumes with minimal right midlung and left lower lobe atelectasis or infiltrate. The PIC catheter is in good position. There has been no change. Dictated by... Andrea Malik M.D. THIS IS AN ELECTRONICALLY VERIFIED REPORT Andrea Malik M.D. at 04/15/2017 8:41 AM GI/joann TD: 04/15/2017 07:31 JOB #: [id number] MEDICAL IMAGING REPORT Page 1 of 1 COPY
--- NOTE | ~2017-04-01 | EKG ---
PATIENT: LUTHER RAMIREZ UNIT #: [id number] Ventricular Rate: 91 BPM Atrial Rate: 91 BPM P-R Interval: 138 ms QRS Duration: 80 ms Q-T Interval: 488 ms QTC Calculation(Bezet): 600 ms P [place]: 38 degrees Calculated R [place]: 56 degrees Calculated T [place]: 71 degrees Diagnosis Line: Normal sinus rhythm Diagnosis Line: T wave abnormality, consider anterior ischemia Diagnosis Line: Prolonged QT Diagnosis Line: Abnormal ECG Diagnosis Line: When compared with ECG of 24-APR-2017 10:58, Diagnosis Line: (unconfirmed) Diagnosis Line: Nonspecific T wave abnormality, improved in Diagnosis Line: Inferior leads Diagnosis Line: T wave inversion now evident in Anterior leads Diagnosis Line: Confirmed by DESHAUN NJ MD ([id number]) on Diagnosis Line: 04/28/2017 5:14:42 PM INTERPRETING MD: DIXON
--- NOTE | ~2017-04-01 | FU ---
[facility] Nutrition Therapy DATE: 04/23/17 Patient: LUTHER RAMIREZ Physician: OLIVE Address: [facility] Room/Bed: [address], Zip: [place] [address] Admit Date: 04/01/17 Date of : [birth year] Height: 5 3 Weight: 132 60 NUTRITION MONITORING/FOLLOW-UP: Reason: Nutrition follow up Anthropometrics: Wt 04/23: 60 kg Labs: Cl- 99 Creat 0.5 Ca++ 6.9 Meds: Mag-ox, dilantin (BID), MgS04, KCl, lopressor, reglan, pepcid, zofran I&O's: , last BM 04/19 Skin: No changes noted Edema: 1+ BUE/ BL hands Pitting- scrotal Generalized- hips/ trunk Estimated Nutrition Needs: 9047-1988 kcals (30-35 kcals/kg adm BW) 47-61 grams protein (47-61 grams/kg adm BW) Assessment: Chart reviewed, events noted. Pt had trach placed this AM, and enteral nutrition has been held for that procedure. Pt had a KUB today, and MD wrote to resume enteral nutrition if KUB is OK. Pt is now receiving Dilantin via PEG BID, which will change his enteral regimen. Please refer to recommendations below. Per pump history, the pt has received 36% of his enteral nutrition goal volume over the past 24 hrs. Nutrition diagnosis remain with updated etiology. Dx: Inadequate protein-energy intake RT enteral nutrition held for procedure AEB 36% goal volume of enteral nutrition received over 24 hrs- ACTIVE Intervention: 1. Resume RN if safe 2. See change in enteral regimen below Monitoring, Evaluation and Goals: 1. EN to provide >80% goal volume x 24 hrs- NOT MET 2. GI function WNL- NOT MET/ IN PROGRESS 3. GRV < 400 mL- NOT AVAILABLE, EN HELD FOR PROCEDURE 4. Glucose, lytes, trigylcerides WNL- MET BESIDES TRIG (NOT OBTAINED) 5. Maintain weight, promote gradual weight gain- IN PROGRESS [facility] Nutrition Therapy DATE: 04/23/17 Patient: LUTHER RAMIREZ Physician: OLIVE Address: [facility] Room/Bed: [address], Zip: [place] [address] Admit Date: 04/01/17 Date of : [birth year] Height: 5 3 Weight: 132 60 Recommendations: 1. Once medically feasible and if deemed safe per KUB results, resume enteral nutrition with Jevity 1.5 @ 20 mL/hr x 20 hrs. Increase by 10 mL q 4 hrs as tolerated to goal of 50 mL/hr x 20 hrs. This will provide: 1500 kcals/ 64 grams protein/ 760 mL free H20 PLEASE NOTE: ENTERAL NUTRITION GOAL RATE HAS BEEN CHANGED TO REFLECT EN BEING HELD FOR ONE HOUR BEFORE AND ONE HOUR AFTER ADMINISTRATION OF SYNTHROID (VIA PEG BID). EN WILL RUN FOR A TOTAL OF 20 HRS 2. Optimize the pt's bowel regimen to promote regularity. 3. Monitor for symptoms of enteral/ GI intolerance closely. Status: Pt is at moderate nutritional risk. RD will continue to follow. Respectfully, SHANIKA PAGE RD, LD Food and Nutritional Services [facility] cc: client file
--- NOTE | ~2017-04-01 | CT4 ---
[facility] A Service of [facility] & [facility] RADIOLOGY TEXT RESULTS PATIENT: LUTHER RAMIREZ LOCATION: [facility] 306-01 : 81 UNIT #: [id number] AGE: [address]: Dave Hansen MD SEX: M ORDER DR: [id number] [facility] [address] [facility]. [place], [place] [address] [id number] I MR#: [id number] Acc #: [id number] NAME: LUTHER RAMIREZ : 1980 SEX: M STUDY DATE/TIME: 04/01/2017 0951 [facility] STUDY DESCRIPTION: CT Abd and Pelv Wo Cont Attending Physician: Dave Hansen M.D. Ordering Physician: Primitivo Hameed M.D. Primary Care Physician: Dinah Pike [facility] IMAGING REPORT This report is preliminary unless electronic signature is present EXAM CT abdomen and pelvis without contrast, 04/01/2017, 0951 hours. CLINICAL HISTORY 37-year-old patient from [facility] with abdominal pain today, question misplaced jejunal tube. COMPARISON CT abdomen 07/05/2013 and abdominal film 04/01/2017. TECHNIQUE Helical noncontrasted images were obtained from the lung bases through the pubic symphysis. Sagittal and coronal reconstructions were performed. Patient is not able to follow breathing instructions and a repeat series was performed due to motion. Sagittal and coronal reconstructions were performed. No additional contrast was administered for this exam. Total exam DLP 1069 mGy-cm. This CT exam was performed with one or more of the following radiation dose reduction techniques: automatic exposure control, adjustment of mA and/or kV according to patient size, and iterative reconstruction. FINDINGS Images through the lung bases demonstrate interstitial change and linear bilateral densities likely atelectasis or scar. Images through the abdomen demonstrate a large amount of free air likely due to the malpositioned gastrostomy tube. The balloon tip is inflated and lies extraluminal. The balloon tip is posterior and inferior to the stomach. The previously administered contrast has diffused across the abdomen with fluid seen in both the right flank, left flank, and pelvis. There is dense contrast within the bladder which has likely been reabsorbed and excreted by the kidneys. There is faint contrast within STS. [facility] A Service of [facility] RADIOLOGY TEXT RESULTS PATIENT: LUTHER RAMIREZ LOCATION: [facility] 306-01 : [birth year] UNIT #: [id number] AGE: [address]: Dave Hansen MD SEX: M ORDER DR: the kidneys. The liver, spleen, pancreas, gallbladder, bile ducts, and adrenal glands are normal. There is no renal mass. The aorta is normal in caliber. The bowel appears normal. There is dense contrast in the pelvis. IMPRESSION 1. CT confirms that the balloon tip gastrostomy tube is not within the stomach. It projects posterior and inferior to the stomach with the balloon tip inflated. 2. There is a large amount of free air likely related to injection through the tube. 3. The previously administered contrast at 0836 hours today has diffused through the abdomen and pelvis and some of it has been resorbed and excreted by the kidneys with dense contrast in the renal collecting systems and bladder. 4. No other abnormalities are seen. STAT * RESULT Dictated by... Yvonne Christiansen M.D. THIS IS AN ELECTRONICALLY VERIFIED REPORT Yvonne Christiansen M.D. at 04/02/2017 2:31 PM JULIEN/johanny TD: 04/01/2017 10:47 JOB #: [id number] MEDICAL IMAGING REPORT Page 1 of 1 COPY
--- NOTE | ~2017-04-01 | EE ---
Unit #: [id number] #: [id number] Patient: LUTHER RAMIREZ [id number] [place] [address] [id number] I MR#: [id number] NAME: LUTHER RAMIREZ : 1980 SEX: M STUDY DATE/TIME: UNIT: [facility] ROOM: [facility] STUDY DESCRIPTION: EEG Attending Physician: Dave Hansen M.D. Primary Care Physician: Dinah Pike NEURODIAGNOSTICS REPORT EXAM EEG CHIEF COMPLAINT Seizures. DESCRIPTION EEG was obtained in sedated state on versed drip. EEG showed excessive beta rhythm throughout the recording. There were frequent sharp discharges seen from the right frontal area. However, these discharges were not rhythmic. IMPRESSION Findings are consistent with sedated state on versed drip and increased right frontal seizure tendency. Dictated by... Joe Aguayo/srinath TD: 04/10/2017 07:52 JOB #: [id number] NEURODIAGNOSTICS REPORT Page 1 of 1 X Alyce Montiel MD NEURODIAGNOSTICS REPORT
--- NOTE | ~2017-04-01 | EE ---
Unit #: [id number] #: [id number] Patient: LUTHER RAMIREZ [id number] [place] [address] [id number] I MR#: [id number] NAME: LUTHER RAMIREZ : 1980 SEX: M STUDY DATE/TIME: UNIT: [facility] ROOM: [facility] STUDY DESCRIPTION: EEG Attending Physician: Dave Hansen M.D. Primary Care Physician: Dinah Pike NEURODIAGNOSTICS REPORT EXAM EEG CHIEF COMPLAINT Seizures. DESCRIPTION EEG was obtained in sedated state on versed and propofol drips using the 10-20 International Montage System. EEG showed diffuse delta range slowing throughout the recording. There were frequent sharp discharges seen from the right frontal area. However, these discharges were not rhythmic. IMPRESSION Findings are consistent with increased right frontal seizure tendency and diffuse cerebral dysfunction. Dictated by... Joe Aguayo/srinath TD: 04/14/2017 06:56 JOB #: [id number] NEURODIAGNOSTICS REPORT Page 1 of 1 X Alyce Montiel MD NEURODIAGNOSTICS REPORT
--- NOTE | ~2017-04-01 | FU ---
[facility] Nutrition Therapy DATE: 04/22/17 Patient: LUTHER RAMIREZ Physician: OLIVE Address: [facility] Room/Bed: [address], Zip: [place] [address] Admit Date: 04/01/17 Date of : [birth year] Height: 5 3 Weight: 137 62.5 NUTRITION MONITORING/FOLLOW-UP: Reason: Anthropometrics: Labs: Meds: I&O's: Skin: Estimated Nutrition Needs: Assessment: Dx: Intervention: Monitoring, Evaluation and Goals: Recommendations: Status: Respectfully, SHANIKA PAGE RD, LD Food and Nutritional Services [facility] cc: client file
--- NOTE | ~2017-04-01 | CR7 ---
[facility] A Service of [facility] & [facility] RADIOLOGY TEXT RESULTS PATIENT: LUTHER RAMIREZ LOCATION: [address]16 : [birth year] UNIT #: [id number] AGE: [address]: Dave Hansen MD SEX: M ORDER DR: [id number] [place] [id number] [facility]. [place], [place] [address] [id number] I MR#: [id number] Acc #: [id number] NAME: LUTHER RAMIREZ : 1980 SEX: M STUDY DATE/TIME: 04/17/2017 9:26 [facility] STUDY DESCRIPTION: CR Abdomen Single AP View Attending Physician: Dave Hansen M.D. Ordering Physician: Haseeb Mckeon M.D. Primary Care Physician: Dinah Pike MEDICAL IMAGING REPORT This report is preliminary unless electronic signature is present EXAM AP abdomen 04/17/2017 09:26 HISTORY PEG placement today. COMPARISON AP abdomen 04/07/2017. Upper GI series with small-bowel follow-through 04/07/2017. FINDINGS As the patient was intubated, on the ventilator, it was decided to be in the best interest of the patient to perform percutaneous gastrostomy tube injection with Gastrografin at bedside with single AP image obtained, rather than bringing the patient to the fluoroscopy suite in the Radiology Department. Approximately 60 mL of Gastrografin contrast was injected into the patient's percutaneous gastrostomy tube. Contrast is located in the left upper quadrant of the abdomen. While I suspect that it is within the gastric lumen, there is not the normal outline of rugal folds. This may simply be due to some difference in the patient's normal anatomy. I could not completely exclude the presence of contrast outside of the gastric lumen, however. Repeat abdominal x-ray may prove fruitful, to document the presence or absence of contrast advancement into the bowel loops. Enteric contrast is seen more distally within the region of the rectum, and presumably within the appendix. There is abnormal small bowel dilation predominantly within the right of midline in the upper abdomen, where an index loop measures about 4.4 cm. [facility] A Service of [facility] RADIOLOGY TEXT RESULTS PATIENT: LUTHER RAMIREZ LOCATION: CICCU3 CICCU3-16 : [birth year] UNIT #: [id number] AGE: [address]: Dave Hanesn MD SEX: M ORDER DR: Small bowel obstruction cannot be excluded. The patient's midline surgical patti have been removed since the 04/07/2017 examination. IMPRESSION 1. Gastrografin contrast injection via the patient's percutaneous gastrostomy tube is located in the left upper quadrant of the abdomen. While I suspect it is intraluminal in location, the conventional outline of the rugal folds is not demonstrated on this examination. I would recommend an additional AP abdomen at this time to document the presence of forward advancement of contrast into the small bowel loops, which would confirm satisfactory placement in the gastric lumen. 2. There are abnormally dilated small bowel loops predominantly to the right of midline in the upper abdomen, worrisome for at least partial small bowel obstruction. 3. Enteric contrast is seen within the rectum, potentially related to previous small bowel follow-through study from 04/07/2017. Dictated by... Chantelle Lott M.D. THIS IS AN ELECTRONICALLY VERIFIED REPORT Chantelle Lott M.D. at 04/20/2017 8:31 AM NAJMA/meka TD: 04/17/2017 11:10 JOB #: [id number] MEDICAL IMAGING REPORT Page 1 of 1 COPY
--- NOTE | ~2017-04-01 | EKG ---
PATIENT: LUTHER RAMIREZ UNIT #: [id number] Ventricular Rate: 96 BPM Atrial Rate: 96 BPM P-R Interval: 134 ms QRS Duration: 72 ms Q-T Interval: 472 ms QTC Calculation(Bezet): 596 ms P [place]: 33 degrees Calculated R [place]: 41 degrees Calculated T [place]: 31 degrees Diagnosis Line: Normal sinus rhythm Diagnosis Line: Nonspecific T wave abnormality Diagnosis Line: Prolonged QT Diagnosis Line: Abnormal ECG Diagnosis Line: When compared with ECG of 16-APR-2017 06:48, Diagnosis Line: No significant change was found Diagnosis Line: Confirmed by DESHAUN NJ MD ([id number]) on Diagnosis Line: 04/28/2017 5:14:08 PM INTERPRETING MD: DIXON
--- NOTE | ~2017-04-01 | DS ---
Unit #: [id number] #: [id number] Patient: LUTHER DUNN [id number] [address] [address] [id number] I MR#: [id number] NAME: LUTHER DUNN ROOM: [facility] Age: 37 Sex: M Admission Date: 04/01/2017 : 1980 Discharge Date: 05/01/2017 Attending Physician: Dave Hansen M.D. Primary Care Physician: Dinah Pike DISCHARGE SUMMARY FINAL DIAGNOSES 1. Acute hypoxic respiratory failure. 2. Status post trach. 3. Intractable epilepsy. 4. Pneumonia. 5. Urinary tract infection. 6. Status post exploratory laparotomy. 7. History of mental retardation and cerebral palsy. 8. Question of gastrointestinal bleed. HOSPITAL COURSE Mr. Dunn is a 37-year-old male who is a resident of [facility], has a history of mental retardation, cerebral palsy and seizure disorder. Was admitted because of dislodged percutaneous endoscopic gastrostomy tube. Patient was admitted to ICU at [facility]. The patient did have a procedure done because of pneumoperitoneum. Exploratory laparotomy was done and revision of gastric tube was done. The patient has had a very lengthy stay. He is going through tracheostomy because of unable to extubate him. Patient had intractable seizures. Medications were adjusted as per Dr. Gaston consultation. I have been discussing with patient's family at length ongoing basis. Patient's parents have decided for comfort care and hospice care. 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 Hospice has been consulted. Patient will be transferred to inpatient hospice care once bed is available. The patient's parents are very much aware of the prognosis. Dictated by... Joe Hawley TD: 05/04/2017 08:37 JOB #: [id number] Unit #: [id number] #: [id number] Patient: LUTHER DUNN DISCHARGE SUMMARY Page 1 of 1 X Lisa De La Vega MD X DISCHARGE SUMMARY
--- NOTE | ~2017-04-01 | CR236 ---
[facility] A Service of [facility] & [facility] RADIOLOGY TEXT RESULTS PATIENT: LUTHER RAMIREZ [address] [birth year] UNIT #: [id number] AGE: [address]: Dave Hansen MD SEX: M ORDER DR: [id number] [facility] [address] [place], [place] [address] [id number] I MR#: [id number] Acc #: [id number] NAME: LUTHER RAMIREZ : 1980 SEX: M STUDY DATE/TIME: 04/18/2017 12:59 UNIT: CICCU3 ROOM: [facility] STUDY DESCRIPTION: CR Small Bowel Sbft W Films Attending Physician: Dave Hansen M.D. Ordering Physician: Vitor Hennessy M.D. Primary Care Physician: Dinah Pike MEDICAL IMAGING REPORT This report is preliminary unless electronic signature is present Small bowel follow-through. HISTORY Abdomen pain and distension for 2 days. Fluoroscopy time 0. FINDINGS Small bowel follow-through study was performed after injection of 100 mL Gastrografin through the patient's gastrostomy tube at bedside, by someone other than myself. [place] image demonstrates residual contrast material in the colon and rectum and appendix. There was prompt contrast passage from the stomach into the duodenum and small bowel, with contrast reaching the distal small bowel at 2 hours and reaching the colon at 4 hours. There is mild distension of several small bowel loops in the mid and lower abdomen suggesting mild ileus, but no transition point is identified, and there is no delay in contrast passage through the small bowel. IMPRESSION There is only mild dilatation of small bowel in the low abdomen and pelvis with prompt contrast passage into the colon within 4 hours. Findings suggest mild low grade small bowel ileus but no evidence of mechanical small bowel obstruction. Dictated by... Juan Luis Parry M.D. THIS IS AN ELECTRONICALLY VERIFIED REPORT Juan Luis Parry M.D. at 04/18/2017 10:50 PM KELLEL/lilibeth TD: 04/18/2017 19:46 [facility] A Service of [facility] & [facility] RADIOLOGY TEXT RESULTS PATIENT: LUTHER RAMIREZ LOCATION: [facility] CICCU3-16 : [birth year] UNIT #: [id number] AGE: [address]: Dave Hansen MD SEX: M ORDER DR: JOB #: [id number] MEDICAL IMAGING REPORT Page 1 of 1 COPY
--- NOTE | ~2017-04-01 | CR7 ---
[facility] A Service of [facility] RADIOLOGY TEXT RESULTS PATIENT: LUTHER RAMIREZ LOCATION: C3A 306-01 : [birth year] UNIT #: [id number] AGE: [address]: Dave Hansen MD SEX: M ORDER DR: [id number] [facility] [address] [facility]. [place], [place] [address] [id number] E MR#: [id number] Acc #: [id number] NAME: LUTHER RAMIREZ : 1980 SEX: M STUDY DATE/TIME: 04/01/2017 8:36 UNIT: [facility] ROOM: STUDY DESCRIPTION: CR Abdomen Single AP View Attending Physician: Primitivo Hameed M.D. Ordering Physician: Primitivo Hameed M.D. Primary Care Physician: Dinah Lutzsola MEDICAL IMAGING REPORT This report is preliminary unless electronic signature is present EXAM Supine radiograph of the abdomen, 04/01/2017. HISTORY Short of air. Pulled G tube. Short of air. Assess G-tube placement. Weakness. TECHNIQUE Supine radiograph of the abdomen is presented. FINDINGS The right hemiabdomen is not entirely included on field of view. Patient has a gastrostomy tube in place. This catheter was injected with Gastrografin. There is free Gastrografin within the abdominal cavity suggesting that the gastrostomy tube is completely or partially outside the gastric lumen. I do not see normal gastric folds to clearly indicate a component of the tube within the stomach. There is contrast which appears to be within a small bowel loop in the left hemiabdomen. The overall bowel gas pattern appears to be within normal limits. I believe there is a small amount of free air in the abdomen, likely related to the gastrostomy tube dislodgement. Findings have been discussed with Dr. Hameed at time of this examination. CT evaluation may be useful for further delineation of current gastrostomy tube positioning. Dictated by... Vitor May M.D. THIS IS AN ELECTRONICALLY VERIFIED REPORT Vitor May M.D. at 04/02/2017 10:54 PM VENTURA/tmw [facility] A Service of [facility] RADIOLOGY TEXT RESULTS PATIENT: LUTHER RAMIREZ LOCATION: [facility] 306-01 : [birth year] UNIT #: [id number] AGE: [address]: Dave Hansen MD SEX: M ORDER DR: TD: 04/01/2017 11:41 JOB #: [id number] MEDICAL IMAGING REPORT Page 1 of 1 COPY
--- NOTE | ~2017-04-01 | EKG ---
PATIENT: LUTHER RAMIREZ UNIT #: [id number] Ventricular Rate: 144 BPM Atrial Rate: 144 BPM P-R Interval: 158 ms QRS Duration: 66 ms Q-T Interval: 266 ms QTC Calculation(Bezet): 411 ms P [place]: 71 degrees Calculated R [place]: 67 degrees Calculated T [place]: 71 degrees Diagnosis Line: Sinus tachycardia Diagnosis Line: Possible Left atrial enlargement Diagnosis Line: Nonspecific ST and T wave abnormality Diagnosis Line: Abnormal ECG Diagnosis Line: When compared with ECG of 13-MAR-2017 15:40, Diagnosis Line: Nonspecific T wave abnormality now evident in Diagnosis Line: Lateral leads Diagnosis Line: Confirmed by DESHAUN NJ MD ([id number]) on Diagnosis Line: 04/17/2017 7:37:29 AM INTERPRETING : DIXON
--- NOTE | ~2017-04-01 | CR72 ---
[facility] A Service of [facility] RADIOLOGY TEXT RESULTS PATIENT: LUTHER RAMIREZ LOCATION: [place] [address]-16 : [birth year] UNIT #: [id number] AGE: [address]: Dave Hansen MD SEX: M ORDER DR: [id number] [facility] [address] [facility]. [place], [place] [address] [id number] I MR#: [id number] Acc #: [id number] NAME: LUTHER RAMIREZ : 1980 SEX: M STUDY DATE/TIME: 04/22/2017 4:32 UNIT: [facility] ROOM: [facility] STUDY DESCRIPTION: CR Chest Single View Portable Attending Physician: Dave Hansen M.D. Ordering Physician: Vitor Scherer M.D. Primary Care Physician: Dinah Pike MEDICAL IMAGING REPORT This report is preliminary unless electronic signature is present EXAM Single view chest INDICATION Respiratory failure. Seizure. FINDINGS Single portable AP view of the chest compared to 04/21/2017. Left PICC and endotracheal tube remain in place. Heart and mediastinal contours are stable. Bibasilar airspace opacities are similar to the prior study. Lung volumes are low. No pneumothorax. IMPRESSION No interval change. Dictated by... Jeremy Santana M.D. THIS IS AN ELECTRONICALLY VERIFIED REPORT Jeremy Santana M.D. at 04/23/2017 12:19 AM PAPO/meka TD: 04/22/2017 06:24 JOB #: [id number] MEDICAL IMAGING REPORT Page 1 of 1 COPY
--- NOTE | ~2017-04-01 | FU ---
[facility] Nutrition Therapy DATE: 04/28/17 Patient: LUTHER RAMIREZ Physician: OLIVE Address: [facility] Room/Bed: [address], Zip: [place] [address] Admit Date: 04/01/17 Date of : [birth year] Height: 5 3 Weight: 110 50 NUTRITION MONITORING/FOLLOW-UP: Reason: Nutrition follow up Anthropometrics: Wt 04/28: 50 kg Labs: New nutritional labs WNL (K+, Mg++) Meds: Reglan, mag-ox, KCl, lopressor, pepcid, zofran I&O's: 1530/1411, last BM 04/28 Skin: No skin breakdown noted Edema: Generalized- BUE/ BLE/ BL hands/ abdomen/ trunk Estimated Nutrition Needs: 7499-9914 kcals (30-35 kcals/kg) 47-61 grams protein (1.0-1.3 grams/kg) Assessment: Chart reviewed, events noted. Pt remains on ventilator support (with trach) in ICU. Bolus enteral nutrition is now being used with one can Jevity 1.5 four times daily. RN reports that the pt is tolerating bolus feeds, and he has received his scheduled boluses as of this AM. Please see recommendations below. Dx: Inadequate protein-energy intake RT enteral nutrition held for procedure AEB 36% goal volume enteral nutrition received- RESOLVED New Dx: Inadequate oral intake RT PMH, dysphagia AEB enteral nutrition support, NPO. Intervention: 1. Bolus enteral nutrition Monitoring, Evaluation and Goals: 1. Enteral nutrition; provide >80% goal volume x 24 hrs- IN PROGRESS (BOLUS) 2. GI FUNCTION WNL- IN PROGRESS 3. Glucose, lytes, trig- IMPROVED 4. Maintain weight- IN PROGRESS (UP FROM ADMISSION WT) NEW GOALS: 1. Enteral nutrition; provide >80% goal volume x 24 hrs 2. Weight; promote gradual weight gain, maintain weight [facility] Nutrition Therapy DATE: 04/28/17 Patient: LUTHER RAMIREZ Physician: OLIVE Address: [facility] Room/Bed: [address], Zip: [place] [address] Admit Date: 04/01/17 Date of : [birth year] Height: 5 3 Weight: 110 50 3. Fluid status- monitor edema Recommendations: 1. Continue current enteral nutrition regimen. Bolus one can (237 mL) Jevity 1.5 four times daily (8A, 12P, 4P, 8P) to provide: 1420 kcals/ 60 grams protein/ 720 mL free H20 2. Continue to monitor edema/ fluid status. Status: Pt is at mild-moderate nutritional risk. Respectfully, SHANIKA PAGE RD, LD Food and Nutritional Services [facility] cc: client file
--- NOTE | ~2017-04-01 | CT71 ---
[facility] A Service of [facility] RADIOLOGY TEXT RESULTS PATIENT: LUTHER RAMIREZ LOCATION: [address]16 : [birth year] UNIT #: [id number] AGE: [address]: Dave Hansen MD SEX: M ORDER DR: [id number] [facility] [address] [facility]. [place], [place] [address] [id number] I MR#: [id number] Acc #: [id number] NAME: LUTHER RAMIREZ : 1980 SEX: M STUDY DATE/TIME: 04/27/2017 13:17 UNIT: [facility] ROOM: [facility] STUDY DESCRIPTION: CT Head Wo Contrast Attending Physician: Dave Hansen M.D. Ordering Physician: Marii Pérez A.P.R.N. Primary Care Physician: Dinah Pike MEDICAL IMAGING REPORT This report is preliminary unless electronic signature is present EXAM Head CT without contrast, 04/27/2017 HISTORY Change in mental status today, lethargy, difficulty waking patient. Seizure disorder. This CT exam was performed with one or more of the following radiation dose reduction techniques: automatic exposure control, adjustment of mA and/or kV according to patient size, and iterative reconstruction. FINDINGS Multiple axial images were obtained from the skull base to vertex without intravenous contrast administration. There is generalized enlargement of the ventricles and sulci characteristic of atrophy. Prior right temporal craniotomy with encephalomalacia in the temporal lobe. 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 There is no midline shift. There is no mass or mass effect, hemorrhage or acute infarct. The visualized paranasal sinuses are clear. IMPRESSION No acute intracranial abnormality. Dictated by... David Fortune M.D. THIS IS AN ELECTRONICALLY VERIFIED REPORT David Fortune M.D. at 04/28/2017 10:35 AM HARLAN/edwardo TD: 04/28/2017 00:14 [facility] A Service of [facility] RADIOLOGY TEXT RESULTS PATIENT: LUTHER RAMIREZ LOCATION: [address] : [birth year] UNIT #: [id number] AGE: [address]: Dave Hansen MD SEX: M ORDER DR: JOB #: [id number] MEDICAL IMAGING REPORT Page 1 of 1 COPY
--- NOTE | ~2017-04-01 | CT4 ---
[facility] A Service of [facility] RADIOLOGY TEXT RESULTS PATIENT: LUTHER RAMIREZ LOCATION: [address]16 : [birth year] UNIT #: [id number] AGE: [address]: Dave Hansen MD SEX: M ORDER DR: [id number] [facility] [address] [place], [place] [address] [id number] I MR#: [id number] Acc #: [id number] NAME: LUTHER RAMIREZ : 1980 SEX: M STUDY DATE/TIME: 04/19/2017 20:26 UNIT: [facility] ROOM: [facility] STUDY DESCRIPTION: CT Abd and Pelv Wo Cont Attending Physician: Dave Hansen M.D. Ordering Physician: Dave Hansen M.D. Primary Care Physician: Dinah Pike [facility] IMAGING REPORT This report is preliminary unless electronic signature is present EXAM CT abdomen and pelvis without contrast HISTORY Drop in hemoglobin today. Possible retroperitoneal hemorrhage. This CT exam was performed with one or more of the following radiation dose reduction techniques: automatic exposure control, adjustment of mA and/or kV according to patient size, and iterative reconstruction. FINDINGS CT abdomen and pelvis was performed without contrast. CT ABDOMEN: There are small bilateral pleural effusions and there is moderate atelectasis in the posterior and inferior lower lobes bilaterally. Gastrostomy tube extends into the stomach. The liver, gallbladder, spleen, pancreas, and adrenal glands are unremarkable. There is a 4 mm stone in the mid left kidney and 2 mm stone in the lower pole left kidney. No hydronephrosis. No bowel dilatation. Small amount of ascites in the abdomen bilaterally. CT PELVIS: Residual oral contrast material in the colon and appendix. Small amount of free fluid in the pelvis. Kelley catheter in the urinary bladder. No pelvic mass or adenopathy. IMPRESSION 1. Small amount of free fluid in the abdomen and pelvis. 2. No retroperitoneal fluid collection. 3. Nonobstructing stones in the left kidney measure up to 4 mm. 4. Small bilateral pleural effusions and moderate atelectasis in the posterior and inferior lower lobes are new compared to CT 04/01/2017. [facility] A Service of [facility] & [facility] RADIOLOGY TEXT RESULTS PATIENT: LUTHER RAMIREZ LOCATION: [facility] CICCU3-16 : [birth year] UNIT #: [id number] AGE: [address]: Dave Hansen MD SEX: M ORDER DR: Dictated by... Juan Luis Parry M.D. THIS IS AN ELECTRONICALLY VERIFIED REPORT Juan Luis Parry M.D. at 04/20/2017 11:11 PM CHANG/edwardo TD: 04/19/2017 22:37 JOB #: [id number] MEDICAL IMAGING REPORT Page 1 of 1 COPY
--- NOTE | ~2017-04-01 | CR72 ---
[facility] A Service of [facility] & [facility] RADIOLOGY TEXT RESULTS PATIENT: LUTHER RAMIREZ LOCATION: [address]16 : [birth year] UNIT #: [id number] AGE: [address]: Dave Hansen MD SEX: M ORDER DR: [id number] [facility] [address] [facility] [facility] [place], [place] [address] [id number] I MR#: [id number] Acc #: [id number] NAME: LUTHER RAMIREZ : 1980 SEX: M STUDY DATE/TIME: 04/20/2017 6:38 UNIT: [facility] ROOM: [facility] STUDY DESCRIPTION: CR Chest Single View Portable Attending Physician: Dave Hansen M.D. Ordering Physician: Vitor Scherer M.D. Primary Care Physician: Dinah Pike MEDICAL IMAGING REPORT This report is preliminary unless electronic signature is present EXAM Portable chest 04/20/2017 COMPARISON 04/19/2017. HISTORY Abdominal distension. Low hemoglobin. Respiratory failure for 19 days, seizures. FINDINGS AP view is obtained. The patient is intubated with the ET tube above the megan. Left-sided PICC line terminates in the SVC. Cardiac size is stable. Exam shows consolidation in the left lower lobe and a small left pleural effusion. There is continued passive congestion. CONCLUSION Continued consolidation left lower lobe and continued passive congestion. Dictated by... Vitor Madrid M.D. THIS IS AN ELECTRONICALLY VERIFIED REPORT Vitor Madrid M.D. at 04/21/2017 5:06 PM CANDIS/meka TD: 04/20/2017 07:46 JOB #: [id number] MEDICAL IMAGING REPORT Page 1 of 1 COPY
--- NOTE | ~2017-04-01 | CR7 ---
[facility] A Service of [facility] & [facility] RADIOLOGY TEXT RESULTS PATIENT: LUTHER RAMIREZ [facility] [birth year] UNIT #: [id number] AGE: [address]: Dave Hansen MD SEX: M ORDER DR: [id number] [facility] [address] [facility]. [place], [place] [address] [id number] I MR#: [id number] Acc #: [id number] NAME: LUTHER RAMIREZ : 1980 SEX: M STUDY DATE/TIME: 04/23/2017 12:56 [facility] STUDY DESCRIPTION: CR Abdomen Single AP View Attending Physician: Dave Hansen M.D. Ordering Physician: Joseph Brink M.D. Primary Care Physician: Dinah Pike MEDICAL IMAGING REPORT This report is preliminary unless electronic signature is present EXAM KUB INDICATION Constipation. The patient underwent a small bowel follow-through on April 07, 2017. He had a KUB on April 18, 2017 which showed persistent enteric contrast throughout the colon. He subsequently had a small bowel follow through was administered more contrast. On today's examination the majority of the enteric contrast appears to be centered over the left side of the abdomen. There is increasing dilatation of colon and small bowel loops when compared to the prior examination. I think appearance would be most in keeping with adynamic ileus rather than leslie obstruction. The appendix is visualized and appears normal. Patient has a gastrostomy tube within the left upper quadrant. IMPRESSION Dilatation of the colon and small bowel loops has increased when compared to the April 21, 2017 examination. I think pattern would be most in keeping with adynamic ileus. Dictated by... Loretta Guevara M.D. THIS IS AN ELECTRONICALLY VERIFIED REPORT Loretta Guevara M.D. at 04/23/2017 4:22 PM VIDA/katharine TD: 04/23/2017 14:54 JOB #: [id number] MEDICAL IMAGING REPORT Page 1 of 1 COPY
--- NOTE | ~2017-04-01 | CR72 ---
[facility] A Service [facility] RADIOLOGY TEXT RESULTS PATIENT: LUTHER RAMIREZ LOCATION: [address] : [birth year] UNIT #: [id number] AGE: [address]: Dave Hansen MD SEX: M ORDER DR: [id number] [place] [id number] [facility]. [place], [place] [address] [id number] I MR#: [id number] Acc #: [id number] NAME: LUTHER RAMIREZ : 1980 SEX: M STUDY DATE/TIME: 04/14/2017 15:37 UNIT: [facility] ROOM: [facility] STUDY DESCRIPTION: CR Chest Single View Portable Attending Physician: Dave Hansen M.D. Ordering Physician: Haseeb Mckeon M.D. Primary Care Physician: Dinah Pike MEDICAL IMAGING REPORT This report is preliminary unless electronic signature is present EXAM Portable chest, 04/14. COMPARISON Same date. HISTORY Fever, shortness of breath. Symptoms beginning 04/13. TECHNIQUE AP portable view is obtained. FINDINGS The patient has been extubated. Left-sided PICC line remains in place. Heart size is normal. There is better aeration of the lung bases than on the previous study with some minimal residual infiltrate. CONCLUSION Interim extubation. Decrease in the basilar infiltrates. Dictated by... Vitor Madrid M.D. THIS IS AN ELECTRONICALLY VERIFIED REPORT Vitor Madrid M.D. at 04/14/2017 5:00 PM CANDIS/johanny TD: 04/14/2017 16:33 JOB #: [id number] MEDICAL IMAGING REPORT [facility] A [facility] RADIOLOGY TEXT RESULTS PATIENT: LUTHER RAMIREZ LOCATION: [place] [address] : [birth year] UNIT #: [id number] AGE: [address]: Dave Hansen MD SEX: M ORDER DR: Page 1 of 1 COPY
--- NOTE | ~2017-04-01 | CO ---
Unit #: [id number] #: [id number] Patient: LUTHER RAMIREZ [id number] [address] [place], [place] [address] [id number] I MR#: [id number] NAME: LUTHER RAMIREZ ROOM: [facility] Age: 37 Sex: M Admission Date: 04/01/2017 : 1980 Attending Physician: Dave Hansen M.D. Primary Care Physician: Dinah Pike Consultation Date: 04/16/2017 CONSULTATION REPORT REASON FOR CONSULT Tachycardia. HISTORY OF PRESENT ILLNESS This is a 37-year-old white male previously known to Dr. Wilson. The patient was seen in the office for preoperative clearance for dental surgery. A 2-D echocardiogram was completed on 08/22/2015 which revealed a normal ejection fraction of 65% with normal valves. Additional past medical history includes seizures, Ozan-Gastaut syndrome, cerebral palsy, mental retardation and recent admission to [facility]. The patient was admitted 03/13 through 03/30/2017 for fever, Pseudomonas pneumoniae and diarrhea. He underwent a PEG tube due to dysphagia. He was readmitted on 04/01/2017 with reports of a dislodged PEG tube which was reportedly pulled by the patient. He was admitted and diagnosed with pneumoperitoneum due to a dislodged PEG tube. On 04/01/2017, he had an exploratory laparotomy washout and revision of PEG tube. He was noted to have some seizure activity and Neurology was consulted. He required intubation but has now been extubated. Infectious Disease was consulted for concern for pneumonia. A sputum culture on 04/14 was positive for Pseudmonas. Urine cultures and repeat blood cultures are pending today. The patient has had intermittent fever as well as seizure activity according to nursing staff. He is nonverbal and cannot provide any information. His sitter from [place] is at the bedside. Today, on telemetry, he was noted to have episodes of tachycardia with rates in the 120s to 150s. He was given a dose of IV Lopressor and Cardiology was consulted. PAST MEDICAL HISTORY 1. A 2-D echocardiogram, 08/22/2015, revealed an ejection fraction of 65%. Normal valves. 2. Recent admission to [facility], 03/13 through 03/30/2017, for fever, Pseudomonas pneumoniae, diarrhea and dysphagia status post PEG tube. 3. Seizures. 4. Ozan-Gastaut syndrome. 5. Cerebral palsy. 6. Mental retardation. 7. Vagal nerve stimulator which was removed secondary to infection 2015. 8. Recurrent aspiration pneumonia. 9. Right temporal craniotomy. 10. Nonsmoker. PAST SURGICAL HISTORY 1. Vagal nerve stimulator with removal. Unit #: [id number] #: [id number] Patient: LUTHER RAMIREZ 2. Right temporal craniotomy. 3. Tubes in ears. 4. PEG tube placement. SOCIAL HISTORY The patient is a resident of [place]. There are no reports of alcohol, illicit drug use or tobacco. FAMILY HISTORY Unobtainable. ALLERGIES Sulfa, carbamazepine, ampicillin, trimethoprim, Ambien, gabapentin, trazodone, minocycline, phenobarbital, haloperidol. HOME MEDICATION 1. Zyrtec 10 mg per PEG tube daily. 2. Calcium carbonate with vitamin D one tablet per PEG tube twice daily. 3. Doxazosin 4 mg per PEG tube at bedtime. 4. Fleet enema per rectum daily. 5. Simethicone 250 mg per PEG tube three times daily before meals. 6. Lactulose 10 g per PEG tube b.i.d. 7. Dilantin 150 mg per PET tube b.i.d. 8. Potassium chloride 20 mEq per PEG tube daily. 9. Ranitidine 150 mg per PEG tube b.i.d. 10. Sabril 1,000 mg per PEG tube daily in the morning. 11. Sabril 500 mg per PEG tube at bedtime. 12. Senna 8.6 mg per PEG tube b.i.d. 13. Acetaminophen 325 mg per PEG tube every six hours p.r.n.. 14. Clonazepam 0.5 mg per PEG tube as needed for seizures. 15. Diazepam 15 mg per rectum as directed for seizures. 16. Jevity 1.5 per PEG tube four times daily. 17. Free water 100 mL per PEG tube four times daily. 18. Topicaine 10 g topical p.r.n. 19. Triple antibiotic ointment p.r.n. to scratches. 20. Sodium bicarbonate 20 g per PEG tube b.i.d. 21. Multivitamin one tablet per PEG tube daily. 22. Vitamin D 1,000 units per PEG tube b.i.d. 23. Zonisamide 300 mg per PEG tube b.i.d. 24. Melatonin 5 mg per PEG tube at bedtime. 25. Milk of Magnesia 15 mL per PEG tube at bedtime. 26. Onfi 5 mg per PEG tube b.i.d. 27. Onfi 20 mg per PEG tube b.i.d. 28. Phenobarbital 97.2 mg per PEG tube at bedtime. 29. Lamotrigine 100 mg per PEG tube b.i.d. Need to clarify dosing. Need to clarify dosing of Keppra as well. REVIEW OF SYSTEMS Unobtainable. PHYSICAL EXAMINATION GENERAL APPEARANCE: This is a 37-year-old white male who is nonverbal. VITAL SIGNS: Temperature 101. Pulse 123. Blood pressure 110/48. SKIN: Warm and dry. NECK: Supple. No jugular vein distension. No hepatojugular reflux. Normal carotid upstrokes. No carotid bruits auscultated. HEART: S1, S2. Regular rate and rhythm but tachycardiac. No murmurs, Unit #: [id number] #: [id number] Patient: TUNGATE,LUTHER rubs or gallops. LUNGS: Bilateral breath sounds are coarse with scattered rhonchi. ABDOMEN: Soft, nontender, nondistended. Positive bowel sounds auscultated x4 quadrants. No ascites. EXTREMITIES: Bilateral extremities have no pretibial pitting edema. DP and PT pulses 2+. Capillary refill less than three seconds. 1. (1) aeruginosa. 2. Sinus tachycardia most likely secondary to infection. 3. Seizures. 4. Lc-Gastaut syndrome. 5. Cerebral palsy. 6. Mental retardation. 7. Left ventricular ejection fraction 65% with normal valves. 8. Hypomagnesemia. PLAN 1. The patient presented to the hospital with a dislodged PEG tube and underwent revision of PEG tube and exploratory laparotomy and washout on 04/01/2017. 2. He was transferred to the intensive care and was subsequently intubated but improved. He is now extubated. 3. Neurology is following for seizures and Infectious Disease is following for recurrent fever. 4. Cardiology was consulted for tachycardia. The patient's sinus tachycardia is likely secondary to infection. 5. Repeat blood cultures are pending. Urine culture is pending. 6. We will start a small dose of beta jose r if blood pressure tolerates. 7. TSH level will be obtained. 8. The patient's magnesium level is mildly low and he is on potassium and magnesium protocol. 9. There is no evidence of congestive heart failure on exam. Dictated by... Romelia Peterson APRN for Joe Brwon TD: 04/17/2017 06:19 JOB #: [id number] CONSULTATION REPORT Page 1 of 1 X X CONSULTATION REPORT
--- NOTE | ~2017-04-01 | CR72 ---
[facility] A Service of [facility] & [facility] RADIOLOGY TEXT RESULTS PATIENT: LUTHER RAMIREZ LOCATION: [place] [address]-16 : [birth year] UNIT #: [id number] AGE: [address]: Dave Hansen MD SEX: M ORDER DR: [id number] [facility] [address] [facility]. [place], [place] [address] [id number] I MR#: [id number] Acc #: [id number] NAME: LUTHER RAMIREZ : 1980 SEX: M STUDY DATE/TIME: 04/19/2017 5:34 UNIT: [facility] ROOM: [facility] STUDY DESCRIPTION: CR Chest Single View Portable Attending Physician: Dave Hansen M.D. Ordering Physician: Vitor Scherer M.D. Primary Care Physician: Dinah Pike MEDICAL IMAGING REPORT This report is preliminary unless electronic signature is present EXAM Portable chest, 04/19/2017. HISTORY Respiratory failure for 18 days. Shortness of breath. COMPARISON Chest, 04/18/2017. FINDINGS Frontal chest demonstrates tubes and lines in stable position. No pneumothorax. No change in patchy bilateral pulmonary opacities. Heart size and mediastinum stable. IMPRESSION 1. Tubes and lines appear stable. No pneumothorax. 2. No significant change in patchy bilateral pulmonary opacities. Dictated by... Roldan Borjas M.D. THIS IS AN ELECTRONICALLY VERIFIED REPORT Roldan Borjas M.D. at 04/20/2017 8:52 AM POOJA/johanny TD: 04/19/2017 07:24 JOB #: [id number] MEDICAL IMAGING REPORT Page 1 of 1 COPY
--- NOTE | ~2017-04-01 | CR72 ---
[facility] A Service of [facility] RADIOLOGY TEXT RESULTS PATIENT: LUTHER RAMIREZ LOCATION: [address] : [birth year] UNIT #: [id number] AGE: [address]: Dave Hansen MD SEX: M ORDER DR: [id number] [facility] [address] [facility]. [place], [place] [address] [id number] I MR#: [id number] Acc #: [id number] NAME: LUTHER RAMIREZ : 1980 SEX: M STUDY DATE/TIME: 04/14/2017 05:28 UNIT: [facility] ROOM: [facility] STUDY DESCRIPTION: CR Chest Single View Portable Attending Physician: Dave Hansen M.D. Ordering Physician: Vitor Scherer M.D. Primary Care Physician: Dinah Pike MEDICAL IMAGING REPORT This report is preliminary unless electronic signature is present EXAM Portable chest, 04/14 at 05:28 hours INDICATION Respiratory failure. Seizures. FINDINGS AP portable chest is compared with 04/11/2017. ET tube in good position. Left arm PICC near the right atrial level. Right arm PICC in the right axillary vein. There is developing infiltrate or atelectasis in the bases, right side greater than left side. There is also small volume of right pleural fluid. There is no pneumothorax. Dictated by... Joseph Nielson Jr., M.D. THIS IS AN ELECTRONICALLY VERIFIED REPORT Joseph Nielson Jr., M.D. at 04/15/2017 5:53 AM IAN/katharine TD: 04/14/2017 08:09 JOB #: [id number] MEDICAL IMAGING REPORT Page 1 of 1 COPY
--- NOTE | ~2017-04-01 | OR ---
Unit #: [id number] #: [id number] Patient: LUTHER RAMIREZ [id number] [address] [place], [place] [address] [id number] April MR#: [id number] NAME: LUTHER RAMIREZ ROOM: [facility] Date of Procedure: 04/01/2017 Admission Date: 04/01/2017 Surgeon: Kaiser Scott III, M.D. : 1980 Attending Physician: Dave Hansen M.D. Primary Care Physician: Dinah Pike OPERATIVE REPORT PREOPERATIVE DIAGNOSES Pneumoperitoneum with dislodged G-tube. POSTOPERATIVE DIAGNOSES Pneumoperitoneum with dislodged G-tube. PROCEDURES PERFORMED Exploratory laparotomy and revision of gastric tube. Washout of abdomen was also performed. ANESTHESIA General. SPECIMENS None. COMPLICATIONS None apparent. ESTIMATED BLOOD LOSS Minimal. INDICATIONS FOR PROCEDURE This is a 37-year-old gentleman, who has multiple medical problems from [place], who had a PEG tube placed less than a week ago. He apparently pulled the PEG tube out and at [place], it was reinserted and not confirmed to be in the stomach and tube feeds were begun. He apparently had some abdominal pain and was brought in and a CT scan showed massive free air and contrast within the abdominal cavity. He is here today for exploratory laparotomy. DESCRIPTION OF PROCEDURE After consent was obtained, the patient was brought to the operating room and placed in the supine position. General anesthetic was administered and his abdomen and PEG tube were prepped and draped in standard surgical fashion. I made a midline laparotomy and entered into the peritoneal cavity without any difficulty. I took down some adhesions along the abdominal wall. Once these were carefully taken down, I then identified the balloon within the abdominal cavity and outside of the stomach. I then deflated the balloon and it was removed. Once I had all the adhesions taken down, I washed out the abdomen and found some of the contrast and some of the tube feeds, but no enteric contents. I searched Unit #: [id number] #: [id number] Patient: LUTHER RAMIREZ the stomach and other than one area scar tissue along the greater curvature, I could not find an actual perforation or hole in the stomach. I then had anesthesia, placed some methylene blue through the NG tube and noted that the area of scarring was where the gastrotomy was. I then took a 20-Upper Sorbian Kelley catheter and brought it through the abdominal wall, where the previous PEG tube was placed. I then placed a pursestring suture around the previous PEG site of the stomach. Next, I used 4 interrupted 2-0 silk sutures to help perform a Alfred suturing of the Kelley catheter against the abdominal wall. I then made a gastrotomy, fed the catheter back into the stomach, inflated the balloon with 10 mL of sterile water and tied down all the Alfred sutures. Once I had the Alfred gastrostomy completed, I again irrigated and had good hemostasis. All needle, sponge, and instrument counts were correct x2. I reapproximated the fascia along the anterior abdominal wall with interrupted #1 Vicryl sutures. The PEG tube was secured to the level of skin with #1 nylon sutures in [address] I then reapproximated the skin edges with stapling device. He tolerated the procedure without any problems and returned to the recovery room in stable condition. Dictated by... Kaiser Scott III, M.D. VCL/edvin TD: 04/02/2017 23:11 JOB #: [id number] OPERATIVE REPORT Page 1 of 1 X Kaiser Scott III, MD PROCEDURE OPERATIVE NOTE
--- NOTE | ~2017-04-01 | CR71 ---
[facility] A Service of [facility] & [facility] RADIOLOGY TEXT RESULTS PATIENT: LUTHER RAMIREZ LOCATION: [address] : [birth year] UNIT #: [id number] AGE: [address]: Dave Hansen MD SEX: M ORDER DR: [id number] [facility] [address] [facility]. [place], [place] [address] [id number] I MR#: [id number] Acc #: [id number] NAME: LUTHER RAMIREZ : 1980 SEX: M STUDY DATE/TIME: 04/17/2017 9:17 UNIT: [facility] ROOM: [facility] STUDY DESCRIPTION: CR Chest Single View Attending Physician: Dave Hansen M.D. Ordering Physician: Vitor Scherer M.D. Primary Care Physician: Dinah FUENTES IMAGING REPORT This report is preliminary unless electronic signature is present EXAMINATION AP portable chest DATE 04/17/2017 at 0917 HISTORY Re-intubation. Peg placement. COMPARISON AP portable chest line 04/07/2017 at 0439. FINDINGS The first AP chest x-ray image demonstrates ET tube placement in the proximal right mainstem bronchus. Chest x-ray marked 2 demonstrates the ET tube tip is been retracted into the lower thoracic trachea about 1.8 cm above the megan. I have confirmed with the technologist that image number 2 does, in fact, represent the second image after readjustment of the ET tube. It appears satisfactorily positioned. Questionable mild perihilar interstitial-type infiltrates in both lungs, left greater than right, without dense consolidation. Heart size is upper limits normal but stable. Left arm approach PICC tip extends to the cavoatrial junction. No visible pneumothorax. No pleural effusion. There is moderate gaseous distension of stomach with what appears to be an insufflated percutaneous gastrostomy tube balloon in the left upper quadrant. IMPRESSION 1. Chest x-ray image 1 demonstrates ET tube tip at the orifice of the right mainstem bronchus. Subsequent image 2 demonstrates the ET tube tip in satisfactory position in the lower thoracic trachea about 1.8 cm above the megan. [facility] A Service of [facility] & [facility] RADIOLOGY TEXT RESULTS PATIENT: LUTHER RAMIREZ LOCATION: [address] : [birth year] UNIT #: [id number] AGE: [address]: Dave Hansen MD SEX: M ORDER DR: 2. Suspected faint left greater right perihilar interstitial-type infiltrates, probably not significantly changed compared to the study earlier today. No dense lung consolidations. 3. No visible pneumothorax. Dictated by... Chantelle Lott M.D. THIS IS AN ELECTRONICALLY VERIFIED REPORT Chantelle Lott M.D. at 04/20/2017 8:31 AM NAJMA/иван TD: 04/17/2017 12:31 JOB #: [id number] MEDICAL IMAGING REPORT Page 1 of 1 COPY
--- NOTE | ~2017-04-01 | EE ---
Unit #: [id number] #: [id number] Patient: LUTHER DUNN [id number] [facility]. [place] [address] [id number] I MR#: [id number] NAME: LUTHER DUNN : 1980 SEX: M STUDY DATE/TIME: UNIT: [facility] ROOM: [facility] STUDY DESCRIPTION: EEG Attending Physician: Dave Hansen M.D. Primary Care Physician: Dinah Pike NEURODIAGNOSTICS REPORT EXAM EEG DESCRIPTION EEG was obtained in awake and drowsy states using the 10-20 International Montage System by bedside. EEG showed excessive beta rhythm superimposed on diffuse delta slow waves. There were occasional sharp discharges seen from both right and left frontal areas but were more common from the right frontal area. Overall, the frequency of sharp discharges was significantly less than Mr. Dunn's EEG recorded yesterday. IMPRESSION Findings are consistent with bifrontally increased seizure tendency, right worse than left. Dictated by... Joe Aguayo/srinath TD: 04/12/2017 16:06 JOB #: [id number] NEURODIAGNOSTICS REPORT Page 1 of 1 X Alyce Montiel MD NEURODIAGNOSTICS REPORT
--- NOTE | ~2017-04-01 | FU ---
[facility] Nutrition Therapy DATE: 04/07/17 Patient: LUTHER RAMIREZ Physician: OLIVE Address: [facility] Room/Bed: [address] [place] [address], Zip: [place] [address] Admit Date: 04/01/17 Date of : [birth year] Height: 5 3 Weight: 112 51 NUTRITION MONITORING/FOLLOW-UP: Reason: Follow up Anthropometrics: Ht: 61" Wt: 46.8 kg BMI: 19.5 Wt 04/07: 51 kg Labs: K+ 3.0 Cl- 114 Cret 0.5 Ca++ 7.8 Meds: MgSO4, KCl, NaCl, D5%, phenytoin, pepcid, zofran, protonix I&O's: -/ Skin: Closed surgical incision to abdomen Redness- moo area/nose Abrasion- nose Edema: None noted Estimated Nutrition Needs: 6469-0983 kcals (30-35 kcals/kg) 47-61 grams protein (1.0-1.3 grams/kg) Assessment: Chart reviewed, events noted. Per note in chart, pt was having emesis/ abdominal distention on 04/04 with questionable post-op ileus. Enteral nutrition has been held due to this. G tube was placed to drainage on 04/04, and enteral nutrition was resumed with Jevity 1.5 continuously at 25 mL/hr. Enteral nutrition was then held on 04/05, then resumed again yesterday 04/06. Per MD note, the pt was not tolerating TFs at all, with greenish bile through G-tube. KUB, UGI and small bowel follow through done today, and RN reports the ileus is resolving. Please see recommendations below. Nutrition diagnosis remains with updated etiology and signs/ symptoms. Dx: Inadequate protein-energy intake RT post-op ileus AEB enteral nutrition intolerance, greenish bile- ACTIVE Intervention: 1. Resume enteral nutrition once ileus resolved Monitoring, Evaluation and Goals: 1. Enteral nutrition; provide >80% goal volume x 24 hrs- NOT MET 2. Weight; prevent unintentional weight loss, promote gradual weight gain towards IBW- IN PROGRESS [facility] Nutrition Therapy DATE: 04/07/17 Patient: LUTHER RAMIREZ Physician: CHUOMA Address: [facility] Room/Bed: [address] [place] [address], Zip: [place] [address] Admit Date: 04/01/17 Date of : [birth year] Height: 5 3 Weight: 112 51 3. GI; promote regular GI function- NOT MET Recommendations: 1. Once ileus is resolved and as deemed safe per surgical team, resume continuous enteral nutrition with Jevity 1.5 @ 20 mL/hr. Monitor closely for symptoms of intolerance. PLEASE NOTE: IF THE PT BEGINS TO RECEIVE DILANTIN VIA PEG TUBE, ENTERAL NUTRITION GOAL RATE WILL NEED TO BE ADJUSTED TO RUN FOR A TOTAL OF 20 HRS, HE RECEIVES DILANTIN Q 12 HRS AND ENTERAL NUTRITION WILL NEED TO BE HELD FOR ONE HOUR BEFORE AND AFTER THIS 2. If the pt tolerates Jevity 1.5 @ 20 mL/hr, increase by 10 mL q 6 hrs as tolerated to goal of 40 mL/hr x 24 hrs. This will provide: 1440 kcals/ 61 grams protein/ 730 mL free H20 See note above 3. If the pt continually tolerates continuous enteral nutrition, consider resuming his previous bolus regimen one can of Jevity 1.5 four times daily at 8A, 12P, 4P, 8P. 4. Please ensure the pt's HOB is upright at a minimum of 30-45 degrees during EN administration to prevent aspiration. Status: Pt is at moderate nutritional risk. RD will continue to follow. Respectfully, SHANIKA PAGE RD, LD Food and Nutritional Services [facility] cc: client file
--- NOTE | ~2017-04-01 | CR7 ---
[facility] A Service of [facility] & [facility] RADIOLOGY TEXT RESULTS PATIENT: LUTHER RAMIREZ LOCATION: [facility] 306-01 : [birth year] UNIT #: [id number] AGE: [address]: Dave Hansen MD SEX: M ORDER DR: [id number] [id number] [facility]. [place], [place] [address] [id number] I MR#: [id number] Acc #: [id number] NAME: LUTHER RAMIREZ : 1980 SEX: M STUDY DATE/TIME: 04/03/2017 18:39 UNIT: A U ROOM: [facility] STUDY DESCRIPTION: CR Abdomen Single AP View Attending Physician: Dave Hansen M.D. Ordering Physician: Dave Hansen M.D. Primary Care Physician: Dianh Pike MEDICAL IMAGING REPORT This report is preliminary unless electronic signature is present EXAM Abdomen. HISTORY Abdomen pain since 04/01. COMPARISON 04/01/2007 FINDINGS This supine view of the abdomen shows distention of multiple loops of small bowel and colon. There are skin patti running vertically down the anterior abdomen wall and the stomach is slightly distended. There is no free air visible. IMPRESSION Mild gaseous distention of most of the colon and what appears to be a few loops of small bowel and stomach. No free air is visible. Dictated by... Andrea Malik M.D. THIS IS AN ELECTRONICALLY VERIFIED REPORT Andrea Malik M.D. at 04/04/2017 2:00 PM [place] TD: 04/04/2017 07:33 JOB #: [id number] MEDICAL IMAGING REPORT Page 1 of 1 COPY
--- NOTE | ~2017-04-01 | CO ---
Unit #: [id number] #: [id number] Patient: LUTHER DUNN [id number] [address] [place], [place] [address] [id number] I MR#: [id number] NAME: LUTHER DUNN ROOM: CIC3 Age: 37 Sex: M Admission Date: 04/01/2017 : 1980 Attending Physician: Dave Hansen M.D. Primary Care Physician: Dinah Pike Consultation Date: 04/19/2017 CONSULTATION REPORT REASON FOR CONSULT Hypernatremia. Thank you very much for asking me to see this patient in consultation. HISTORY OF PRESENT ILLNESS Mr. 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 Subsequently, he is now intubated with aspiration pneumonia. We were asked to see the patient secondary to increased sodium of 148 today. The patient currently has family at bedside. He has decreased response, currently appears comfortable. The patient was noted to have a sodium of 143 several days ago, 149 yesterday, and 148 today. He was also noted to have a calcium of 6.7. PAST MEDICAL HISTORY Again, history of Lc-Gastaut syndrome with cerebral palsy, history of developmental delay, history of seizure disorder, history of right temporal craniotomy in the past, history of respiratory failure, history of pneumonia, history of aspiration pneumonitis. He is status post G-tube placement. ALLERGIES He has allergy to sulfa drugs, mephenytoin, ampicillin, Bactrim, Ambien, gabapentin, trazodone, and minocycline. SOCIAL HISTORY He does not smoke or drink. He lives in [place]. MEDICATIONS His medicines currently include Depakote, phenobarbital, Mycamine, Keppra, Vimpat, Maxipime, propofol, Lopressor, Reglan, tobramycin, Pepcid, and Zoloft. REVIEW OF SYSTEMS Unable to obtain. FAMILY HISTORY Noncontributory. PHYSICAL EXAMINATION GENERAL: Again, he is intubated. Decreased response. VITAL SIGNS: Temperature is 99.3, pulse 88 to 107, blood pressure is 89 to 109 over 40s to 60s. He has 3735 in and out is 2385. Unit #: [id number] #: [id number] Patient: LUTHER DUNN HEENT: Normocephalic and atraumatic. Pupils are equal, round, and reactive to light. Extraocular muscles are intact. He is orally intubated. NECK: Supple. No adenopathy. CARDIAC: Without a rub. No S3 or S4. LUNGS: Have a few rhonchi only. ABDOMEN: G-tube is in place. It is actually fairly soft and nontender. EXTREMITIES: He has no significant lower extremity swelling. His pulses are intact in upper and lower extremities. JOINTS: No joint pain or joint swelling. SKIN: No acute rashes. : Kelley catheter is in place. DIAGNOSTIC STUDIES LABORATORY RESULTS: Shows a sodium of 148, potassium 3.4, chloride is 116, bicarb 20, BUN of 22, creatinine 0.6, glucose 58. ABG showed a pH of 7.33, pCO2 of 40, pO2 of 97 on 40%. Hemoglobin is down to 6.4 and getting blood currently, white count 17,300, platelets 110,000. Urinalysis several days ago showed 5 to 10 rbc's, 200 to 300 wbc's, 1+ bacteria, positive nitrite, and has grown out just a few colonies of E. coli ESBL. Calcium of 6.7 with an albumin of 1.6, last checked. ASSESSMENT AND PLAN 1. Hypernatremia. This is a gentleman with increasing sodium. Certainly, I agree with just ordered 200 mL of water in his feeding tube every 6 hours. He has a little bit over 2 L water deficit. We will check a urine osmolarity and a random urine sodium to rule out diabetes insipidus, although I doubt this is the cause and it probably just mainly free water deficit. His IV fluids have been discontinued as well today. 2. Hypocalcemia. The patient's calcium is low, corrects to 8.6 with a low albumin, although it is still a little bit on the low side. We will go ahead and give a couple amps of calcium gluconate over 4 hours today and check in the morning. 3. Metabolic acidosis with an anion gap of 12. We will watch and do further workup if it does not improve. 4. Anemia. Getting blood. CT was ordered to rule out retroperitoneal bleed. 5. Respiratory failure. 6. Developmental delay. 7. Seizure disorder. 8. Extended-spectrum beta-lactamase urinary tract infection. Dictated by.Joe Norman/edvin TD: 04/19/2017 16:05 JOB #: [id number] Unit #: [id number] #: [id number] Patient: LUTHER DUNN CONSULTATION REPORT Page 1 of 1 X Jayden Lockett MD X CONSULTATION REPORT
--- NOTE | ~2017-04-01 | CR72 ---
[facility] A Service of [facility] & [facility] RADIOLOGY TEXT RESULTS PATIENT: LUTHER RAMIREZ LOCATION: [address]16 : [birth year] UNIT #: [id number] AGE: [address]: Dave Hansen MD SEX: M ORDER DR: [id number] [facility] [address] [facility]. [place], [place] [address] [id number] I MR#: [id number] Acc #: [id number] NAME: LUTHER RAMIREZ : 1980 SEX: M STUDY DATE/TIME: 04/23/2017 12:54 UNIT: [facility] ROOM: [facility] STUDY DESCRIPTION: CR Chest Single View Portable Attending Physician: Dave Hansen M.D. Ordering Physician: Joseph Brink M.D. Primary Care Physician: Dinah Pike MEDICAL IMAGING REPORT This report is preliminary unless electronic signature is present EXAM Chest portable, 04/23/2017 12:54 hours HISTORY 37-year-old man postop trach placement today, abdominal distension. Symptoms began on 04/01/2017. COMPARISON 04/23/2017 at 03:43 hours FINDINGS Portable semierect film demonstrates interval removal of endotracheal tube and placement of a tracheostomy appliance with tip in mid trachea. Left PICC line tip is in the SVC without change. The lung volumes are slightly improved. There is decrease in bilateral interstitial change. There is no pneumothorax. There is retrocardiac basilar density with air bronchograms likely atelectasis. Pneumonia cannot be excluded. IMPRESSION 1. New tracheostomy appliance tip in the mid trachea. Superior mediastinal contours are normal and there is no pneumothorax. 2. Overall decrease in interstitial change in both lungs. 3. Persistent left retrocardiac density with air bronchograms which could represent pneumonia or atelectasis similar to earlier film today. STAT * RESULT Dictated by... Yvonne Christiansen M.D. THIS IS AN ELECTRONICALLY VERIFIED REPORT Yvonne Christiansen M.D. at 04/23/2017 2:35 PM [facility] A Service of [facility] RADIOLOGY TEXT RESULTS PATIENT: LUTHER RAMIREZ LOCATION: [facility] CICCU3-16 : [birth year] UNIT #: [id number] AGE: [address]: Dave Hansen MD SEX: M ORDER DR: JULIEN/katharine TD: 04/23/2017 13:17 JOB #: [id number] MEDICAL IMAGING REPORT Page 1 of 1 COPY
--- NOTE | ~2017-04-01 | CR72 ---
[facility] A Service of [facility] & [facility] RADIOLOGY TEXT RESULTS PATIENT: LUTHER RAMIREZ LOCATION: [address]16 : [birth year] UNIT #: [id number] AGE: [address]: Dave Hansen MD SEX: M ORDER DR: [id number] [facility] [address] [facility]. [place], [place] [address] [id number] I MR#: [id number] Acc #: [id number] NAME: LUTHER RAMIREZ : 1980 SEX: M STUDY DATE/TIME: 04/08/2017 20:28 UNIT: [facility] ROOM: [facility] STUDY DESCRIPTION: CR Chest Single View Portable Attending Physician: Dave Hansen M.D. Ordering Physician: Vitor Scherer M.D. Primary Care Physician: Dinah Pike MEDICAL IMAGING REPORT This report is preliminary unless electronic signature is present EXAM Portable chest HISTORY ETT placement today. FINDING ETT tip is 2.5 cm above the megan. No pulmonary infiltrates or effusions. Right arm approach PICC tip is at the level of the right axilla. Moderate gaseous distension of the stomach partly visualized in the left upper quadrant. Dictated by... Juan Luis Parry M.D. THIS IS AN ELECTRONICALLY VERIFIED REPORT Juan Luis Parry M.D. at 04/08/2017 11:31 PM CHANG/edwardo TD: 04/08/2017 22:31 JOB #: [id number] MEDICAL IMAGING REPORT Page 1 of 1 COPY
--- NOTE | ~2017-04-01 | CO ---
Unit #: [id number] #: [id number] Patient: LUTHER RAMIREZ [id number] [facility] [address] [facility]. [place], [place] [address] [id number] I MR#: [id number] NAME: LUTHER RAMIREZ ROOM: 306 Age: 37 Sex: M Admission Date: 04/01/2017 : 1980 Attending Physician: Dave Hansen M.D. Primary Care Physician: Dinah Pike Consultation Date: 04/06/2017 CONSULTATION REPORT PRIMARY CARE PHYSICIAN Dinah Pike. REASON FOR CONSULTATION Seizure. PATIENT IDENTIFICATION This is a 37-year-old male, evaluated in room 306 at [facility]. SOURCE OF INFORMATION Obtained from the medical record and previous evaluations. The patient is unable to contribute to history or review of systems as he is nonverbal at baseline. HISTORY OF PRESENT ILLNESS This is a 37-year-old, male with a past medical history of [place]-Gastaut intractable epilepsy, cerebral palsy with profound mental retardation, who presents to [facility] with dislodged PEG tube, unable to take p.o. medications. Surgery was consulted and he had a revision of his PEG tube done with exploratory laparotomy and washout of abdomen on 04/01/2017. Neurology was asked to evaluate today as the patient has had recurrent seizures today, actually 4. I witnessed one event that did resolve on its own, but he is having recurrent events. The seizure I witnessed did become a generalized event lasting about 30 seconds. His sitter from [employer] is in the room and has documented 4 events as of this morning, including that one. He is on multiple seizure medications at baseline, though he has not received many of them as he has not been able to take any pills via his PEG tube or by mouth and many of these medications could not be converted to IV form. Thus, he was started on Vimpat this morning and we gave a loading dose. His Keppra was increased to 1500 mg b.i.d. He is receiving also phenobarbital IV, which is a home medication and he was continued on Dilantin IV, which is a home medication. Of note, he is also on lamotrigine, which could not be converted to IV. He is on Onfi, which could not be converted to IV, Zonegran which also could not be converted to IV, and Sabril, which could not be converted to IV. Thus, we have adjusted his medications and we are checking his Dilantin and phenobarbital levels to see what they are as well. After receiving a loading dose of Vimpat IV and receiving an increased dose of Keppra, his seizures did stop and he has had no further events today. We gave those stat. The patient is unable to provide any history or review of systems given his mental status baseline and at baseline, he is nonverbal. There Unit #: [id number] #: [id number] Patient: LUTHER RAMIREZ has been no report of any other neurologic changes and no significantly elevated temperature. His temperature is noted at 99.3 currently. He does not appear to be treated for any other active problems currently other than what is discussed above. PAST MEDICAL HISTORY 1. [place]-Gastaut. 2. Cerebral palsy with severe MR. 3. Intractable epilepsy. 4. History of vagal nerve stimulator that was removed secondary to infection in 2015. 5. Aspiration pneumonitis, recurrent. 6. Right temporal craniotomy. 7. Myringotomy. 8. PEG tube placement. ALLERGIES Sulfa. Phenobarbital is listed as an allergy, but it looks as though the note next to it is labelled as increased activity. Per the patient's parents, he comes in on phenobarbital and does not appear to be having any adverse reaction or allergic reaction. Haloperidol. mephenytoin. The patient takes phenytoin at baseline. Carbamazepine. Ampicillin. Sulfamethoxazole. Trimethoprim. Zolpidem. Gabapentin. Trazodone. Minocycline. MEDICATIONS At [employer] include as per med rec; cetirizine 10 mg PEG daily; calcium carbonate plus vitamin D3; doxazosin; Fleet Enema; gas relief; simethicone; lactulose; Dilantin, he takes 150 mg via PEG every 12 hours; potassium chloride; ranitidine; Sabril, it looks like he takes 1000 mg per PEG every morning and 500 mg per PEG every night; senna; acetaminophen; clonazepam 0.5 mg per PEG, status post seizure greater than 1 minute p.r.n.; Diastat 15 mg per rectum for seizure greater than 3 minutes p.r.n.; Jevity; free water per PEG; lidocaine topically; triple antibiotic ointment topically p.r.n. scratches; sodium bicarbonate; multivitamin; vitamin D; Zonegran, he takes 300 mg per PEG b.i.d.; melatonin; milk of magnesia; Onfi, he takes it looks like 25 mg per PEG every 12 hours; phenobarbital, he takes 97.2 mg per PEG q.h.s.; lamotrigine, it looks like he takes 325 mg per PEG every 12 hours; levetiracetam or Keppra, he takes it looks like a 1000 mg the morning, 1250 mg per PEG in the evening. REVIEW OF SYSTEMS Unable to obtain review of systems from the patient given his mental status. FAMILY HISTORY Noncontributory to the presenting condition. SOCIAL HISTORY He is a resident of [employer]. No known tobacco use, alcohol use, or illicit drug use. He has profound MR at baseline. PHYSICAL EXAMINATION VITAL SIGNS: Temperature 99.3, pulse 113, respirations 17, blood pressure 135/85, oxygen saturation 97% on 2 L, height 5 feet 3 inches, weight 112 pounds. NEUROLOGIC: The patient initially seen while having an active seizure, lasting about 30 seconds. Otherwise, he is not awake or alert, but he Unit #: [id number] #: [id number] Patient: LUTHER RAMIREZ does become awake after receiving his medications, but is drowsy. He is nonverbal at baseline. Does not cooperate. He does move extremities spontaneously, but does not follow commands. Cranial nerve exam; he responds to threats in the primary visual preston. Eyes appeared to be conjugate and no nystagmus seen. Unable to assess the sensation of face and scalp or strength of muscles of facial expression. The patient appears postictal. He responds to threats in the primary visual preston. Unable to assess tongue, uvula, or palate. Motor exam; he does move extremities spontaneously. Gait and Romberg unable to be evaluated. Unable to assess coordination. No further seizure activity seen following administration of IV medications. DIAGNOSTIC STUDIES IMAGING STUDIES: As per chart and have been reviewed. LABORATORY RESULTS: Sodium 147, potassium 3.4, chloride 117, CO2 of 22, glucose 82, BUN 21, creatinine 0.4, estimated GFR 152.9, calcium 8.3. White blood cell count 11.4, hemoglobin 9, hematocrit 29.0, platelet count 375. Urine culture; final, negative. Procalcitonin 0.99. Blood cultures, preliminary, negative x2 sets. Lactic acid 2, repeat lactic acid 0.9. IMPRESSION 1. Recurrent breakthrough generalized seizures, likely secondary to inability to take home seizure medications. The patient is not able to take p.o. or per PEG. 2. Lc-Gastaut. 3. Cerebral palsy with profound mental retardation. 4. Status post PEG revision on this admission. 5. History of right temporal craniotomy. PLAN Please see orders. I discussed with Dr. Montiel at the time of emergent evaluation. We ordered a stat EEG. I gave the patient a loading dose of Vimpat and continue that at 200 mg IV b.i.d., increase Keppra dose to 1500 mg IV b.i.d. and give a stat dose. We have ordered phenobarbital and Dilantin level, which is pending. Further recommendation pending those levels. The patient is clinically improved. We will monitor closely. Certainly, this is a delicate case as the patient has intractable epilepsy on multiple medications and unfortunately many of his medications could not be converted to IV and thus, he continues to be at risk for breakthrough seizures as he is not receiving those medications. He is still having significant residuals via his PEG and is not taking anything per PEG at this time. We will follow closely along with you and we will make attempts to get him back on his baseline seizure medications when possible and may need dose adjustment of Dilantin and phenobarbital pending those levels. Please call for any questions or issues. We thank you very much for allowing us to assist in the care of this patient. Dictated by... Yari Michel/edvin TD: 04/07/2017 05:02 Unit #: [id number] #: [id number] Patient: LUTHER RAMIREZ JOB #: [id number] CONSULTATION REPORT Page 1 of 1 X Marii Pérez DYE RANGE TENDER X CONSULTATION REPORT
--- NOTE | ~2017-04-01 | CR72 ---
[facility] A Service of [facility] & [facility] RADIOLOGY TEXT RESULTS PATIENT: LUTHER RAMIREZ LOCATION: [place] [address]-16 : [birth year] UNIT #: [id number] AGE: [address]: Dave Hansen MD SEX: M ORDER DR: [id number] [facility] [address] [facility]. [place], [place] [address] [id number] I MR#: [id number] Acc #: [id number] NAME: LUTHER RAMIREZ : 1980 SEX: M STUDY DATE/TIME: 04/11/2017 5:47 UNIT: [facility] ROOM: [facility] STUDY DESCRIPTION: CR Chest Single View Portable Attending Physician: Dave Hansen M.D. Ordering Physician: Luis Alberto Watkins M.D. Primary Care Physician: Dinah Pike MEDICAL IMAGING REPORT This report is preliminary unless electronic signature is present EXAM Portable chest INDICATION Follow up support lines and tubes. COMPARISON 04/10/2017. FINDINGS The support lines and tubes are stable. Heart size stable. No new infiltrates. IMPRESSION No significant change in the appearance of the chest. Dictated by... Luther Donohue M.D. THIS IS AN ELECTRONICALLY VERIFIED REPORT Luther Donohue M.D. at 04/11/2017 3:56 PM SANDI/meka TD: 04/11/2017 15:02 JOB #: [id number] MEDICAL IMAGING REPORT Page 1 of 1 COPY
--- NOTE | ~2017-04-01 | EKG ---
PATIENT: LUTHER RAMIREZ UNIT #: [id number] Ventricular Rate: 131 BPM Atrial Rate: 131 BPM P-R Interval: 122 ms QRS Duration: 64 ms Q-T Interval: 308 ms QTC Calculation(Bezet): 454 ms P [place]: 35 degrees Calculated R [place]: 64 degrees Calculated T [place]: 37 degrees Diagnosis Line: Sinus tachycardia Diagnosis Line: Nonspecific T wave abnormality Diagnosis Line: Abnormal ECG Diagnosis Line: When compared with ECG of 16-APR-2017 04:50, Diagnosis Line: (unconfirmed) Diagnosis Line: No significant change was found Diagnosis Line: Confirmed by DESHAUN NJ MD ([id number]) on Diagnosis Line: 04/17/2017 7:38:12 AM INTERPRETING NOA METCALF
--- NOTE | ~2017-04-01 | A ---
[facility] Nutrition Therapy DATE: 04/02/17 Patient: LUTHER RAMIREZ Physician: OLIVE Address: [facility] Room/Bed: [address] [place] [address], Zip: [place] [address] Admit Date: 04/01/17 Date of : [birth year] Height: 64 Weight: 103 46.8 NUTRITIONAL ASSESSMENT: REASON: Enteral nutrition assessment 37 yo male admitted for dislodged PEG PMH: MR, CP, Lc-Gout syndrome, severe dysphagia s/p PEG, seizure disorder, aspiration PNA, s/p right temporal lobectomy and small bowel resection, [place] resident Anthropometrics: Ht: 61" Wt: 46.8 kg BMI: 19.5 IBW: 50.9 kg, 92% IBW Labs: Gluc 117 Meds: MOM, MVI with minerals, miralax, vitamin D, sodium bicarbonate, senokot, pepcid, lactulose, Os-julisa + D, D5%, protonix, Dilantin I/O & Bowel function: 900/402, last BM 03/30 Skin Integrity: none noted Edema: none noted Estimated Nutrition Needs: 5140-7302 kcals (30-35 kcals/kg) 47-61 grams protein (1.0-1.3 grams/kg) Assessment: Chart reviewed, events noted. 37 yo male [place] resident admitted for dislodged PEG with free air in abdomen. This RD is familiar with this pt, and followed him during a recent previous admission (discharged 03/30) when he was on a ventillator in the ICU. Pt eventually had a video SECURITY DISPATCHER eval and failed. Pt was receving continuous enteral nutrition with Jevity 1.5 during that admission. Pt had his PEG placed at [facility] 5-6 days ago during this previous admission. Apparently the pt pulled out his PEG, and it was replaced then pt admitted for the PEG being dislodged. Pt is now POD#1 for exploratory laparatomy with abdominal wash out and PEG was replaced. MD ordered to bolus one half can of Jevity 1.5 four times daily. RN reports that the pt received the bolus this AM with no issues reported. Of note, per the pt's discharge weight, he has lost ~1.7 kg since discharge 3 days ago. Please see recommendations below. Dx: Inadequate protein-energy intake RT dislodged PEG AEB admission Dx, pt's current regimen not meeting his needs. Intervention: 1. Bolus enteral nutrition [facility] Nutrition Therapy DATE: 04/02/17 Patient: LUTHER RAMIREZ Physician: OLIVE Address: [facility] Room/Bed: [address] [place] [address], Zip: [place] [address] Admit Date: 04/01/17 Date of : [birth year] Height: 64 Weight: 103 46.8 Monitoring, Evaluation and Goals: 1. Enteral nutrition; provide >80% goal volume x 24 hrs 2. Weight; prevent weight loss, promote gradual weight gain towards healthy BMI 3. GI; promote regular bowel function Recommendations: 1. Once medically feasible when ok per MD, increase bolus feeds to one full can of Jevity 1.5 (237 mL) four times daily at 8A, 12P, 4P, 8P. This will provide: 1420 kcals/ 60 grams protein/ 720 mL free H20 2. If the pt's weight continues to trend down, add one can of Jevity 1.5 to the pt's enteral regimen to provide an additional 355 kcals/ 15 grams protein/ 180 mL free H20 3. Please ensure the pt's HOB is upright at a minimum of 30-45 degrees during EN administration. Pt has a h/o aspiration. 4. Continue MVI + minerals. Pt is at mild-moderate nutritional risk. RD will follow hospital course per protocol. Respectfully, SHANIKA PAGE RD, LD Food and Nutritional Services [facility] cc: client file
--- NOTE | ~2017-04-01 | FU ---
[facility] DATE: 04/10/17 Patient: LUTHER RAMIREZ Physician: OLIVE Address: [facility] Room/Bed: [address], Zip: [place] [address] Admit Date: 04/01/17 Date of : [birth year] Height: 5 3 Weight: 151 68.8 NUTRITION MONITORING/FOLLOW-UP: Reason: Enteral nutrition follow-up Anthropometrics: Ht: 61" Adm wt: 46.8 kg BMI: 19.5 Current wt: 68.8 kg (weights in [employer] have ranged from 46-71 kg) Labs: Crat 0.5, Ca++ 7.7 Meds: Mg, KCl, NaCl, D5%, Phenytoin, Pepcid, Zofran, Protonix, Propofol @ 25.6 mL/hr, Versed I&O's: 3799/1900, last BM 04/08 Skin: CSI/patti (abd), redness (moo area/L groin), abrasion (nose), no edema noted Estimated Nutrition Needs: 0490-3971 kcal (30-35 kcal/kg) 47-61 g protein (1.0-1.3 g/kg) Assessment: Chart reviewed, events noted. Pt was transferred to ICU from d/t frequent seizures. Pt is currently intubated and sedated in ICU. Pt is receiving propofol @ 25.6 mL/hr, which is providing an extra 676 kcal from lipids. Per chart, pt is tolerating tube feeds. Pt's enteral nutrition rate was slowly increased, currently @ goal of 40 mL/hr. Per pump history, pt received 67% of goal volume x 24 hrs. See recommendations below. Dx: Inadequate protein-energy intake RT post-op ileus, seizures AEB pt receiving 67% of goal volume x 24 hrs. -ACTIVE Intervention: 1. Enteral nutrition Monitoring, Evaluation and Goals: 1. Enteral nutrition; provide >80% of estimated needs and goal volume x 24 hrs -NOT MET 2. Weight; prevent unintentional weight loss, promote gradual weight gain towards IBW -IN PROGRESS 3. GI; promote regular GI function -IN PROGRESS Recommendations: 1. Decrease enteral nutrition rate of Jevity 1.5 to 20 mL/hr + 30 mL prostat BID. This will provide: 1596 kcal/ 61 g protein/ 365 mL free H2O. [facility] DATE: 04/10/17 Patient: LUTHER RAMIREZ Physician: OLIVE Address: [facility] Room/Bed: [address], Zip: [place] [address] Admit Date: 04/01/17 Date of : [birth year] Height: 5 3 Weight: 151 68.8 2. Monitor to enteral nutrition intolerance. 3. Please ensure pt's HOB is upright at minimum of 30-45 degrees during enteral nutrition administration to prevent aspiration. Status: Pt is at a moderate nutritional risk. RD will f/u per protocol. Respectfully, Audelia Willingham, Rn [facility]wife [facility] cc: client file
--- NOTE | ~2017-04-01 | CR72 ---
[facility] A Service of [facility] & [facility] RADIOLOGY TEXT RESULTS PATIENT: LUTHER RAMIREZ LOCATION: [address] : [birth year] UNIT #: [id number] AGE: [address]: Dave Hansen MD SEX: M ORDER DR: [id number] [facility] [address] [facility]. [place], [place] [address] [id number] I MR#: [id number] Acc #: [id number] NAME: LUTHER RAMIREZ : 1980 SEX: M STUDY DATE/TIME: 04/10/2017 5:44 UNIT: [facility] ROOM: [facility] STUDY DESCRIPTION: CR Chest Single View Portable Attending Physician: Dave Hansen M.D. Ordering Physician: Luis Alberto Watkins M.D. Primary Care Physician: Dinah Pike MEDICAL IMAGING REPORT This report is preliminary unless electronic signature is present EXAM Portable chest INDICATION Evaluate endotracheal tube. COMPARISON 04/08/2017. FINDINGS This portable view of the chest shows the endotracheal tube and PIC catheter in good position. The heart size and vascularity are normal. The lungs are clear. Dictated by... Andrea Malik M.D. THIS IS AN ELECTRONICALLY VERIFIED REPORT Andrea Malik M.D. at 04/10/2017 8:15 AM GI/meka TD: 04/10/2017 07:49 JOB #: [id number] MEDICAL IMAGING REPORT Page 1 of 1 COPY
--- NOTE | ~2017-04-01 | CR72 ---
[facility] A Service of [facility] RADIOLOGY TEXT RESULTS PATIENT: LUTHER RAMIREZ LOCATION: [facility] : [birth year] UNIT #: [id number] AGE: [address]: Dave Hansen MD SEX: M ORDER DR: [id number] [facility] [address] [facility] [place], [place] [address] [id number] I MR#: [id number] Acc #: [id number] NAME: LUTHER RAMIREZ : 1980 SEX: M STUDY DATE/TIME: 04/08/2017 22:34 UNIT: [facility] ROOM: [facility] STUDY DESCRIPTION: CR Chest Single View Portable Attending Physician: Dave Hansen M.D. Ordering Physician: Dave Hansen M.D. Primary Care Physician: Dinah Pike MEDICAL IMAGING REPORT This report is preliminary unless electronic signature is present EXAM Portable chest. DATE OF EXAM 04/08/2017 HISTORY PICC line placement today. COMPARISON Chest, 04/08/2017 at 2028 hours. FINDINGS Frontal chest at 2234 hours demonstrates placement of a left-sided PICC line with tip projecting over the lower SVC. No pneumothorax. Right PICC line tip again terminates in the region of the right axillary vein. Endotracheal tube stable. Lungs are clear. Heart size and mediastinum are stable. IMPRESSION Placement of a left-sided PICC line with tip projecting over the lower SVC. No pneumothorax. Right PICC line is unchanged with tip projecting over the right axillary region. Endotracheal tube stable. Dictated by... Roldan Borjas M.D. THIS IS AN ELECTRONICALLY VERIFIED REPORT Roldan Borjas M.D. at 04/09/2017 10:27 PM POOJA/lilibeth TD: 04/08/2017 23:13 [facility] A Service of [facility] RADIOLOGY TEXT RESULTS PATIENT: LUTHER RAMIREZ LOCATION: [facility] : [birth year] UNIT #: [id number] AGE: [address]: Dave Hansen MD SEX: M ORDER DR: JOB #: [id number] MEDICAL IMAGING REPORT Page 1 of 1 COPY
--- NOTE | ~2017-04-01 | OR ---
Unit #: [id number] #: [id number] Patient: LUTHER RAMIREZ [id number] [address] [address] [id number] I MR#: [id number] NAME: LUTHER RAMIREZ ROOM: [facility] Date of Procedure: 04/23/2017 Admission Date: 04/01/2017 Surgeon: Joseph Brink M.D. : 1980 Attending Physician: Dave Hansen M.D. Primary Care Physician: Dinah Pike OPERATIVE REPORT PREOPERATIVE DIAGNOSES 1. Respiratory failure and aspiration pneumonia. 2. Failure to wean from ventilator. POSTOPERATIVE DIAGNOSES 1. Respiratory failure and aspiration pneumonia. 2. Failure to wean from ventilator. PROCEDURE PERFORMED Tracheostomy with 8-Kuwaiti cuffed Shiley tracheostomy tube. ANESTHESIA General endotracheal anesthesia. ESTIMATED BLOOD LOSS Less than 10 mL. INDICATION The patient is a 37-year-old gentleman, who was in the intensive care unit with aspiration pneumonia, and has been unable to be weaned from the ventilator. Tracheostomy has been requested. DESCRIPTION OF PROCEDURE The patient was transported from the intensive care unit to the operating room, and after being placed on the operating room table in the supine position, and appropriate monitoring and induction of general endotracheal anesthesia was completed. A shoulder roll was placed, and his neck was hyperextended. Neck and upper chest were prepped and draped in the usual sterile fashion. Two fingerbreadths above the sternal notch, a transverse incision was made. I dissected down through the soft tissues, the strap muscles in the midline, and exposed the trachea. The second tracheal cartilage was identified. A box incision was made anteriorly, and a segment of the cartilage was removed. Tracheal cocoa butter filter operator was used to enlarge the hole, and then an 8-Kuwaiti cuffed Shiley tracheostomy tube was placed. The inner cannula was placed, and we had good end-tidal CO2 readings and easy ventilation of the lungs. The tracheostomy tube was secured with a 2-0 nylon suture and tracheostomy tape. A dressing sponge was placed. The patient was transported back to the intensive care unit in stable condition. Dictated by... Unit #: [id number] #: [id number] Patient: LUTHER RAMIREZ Joseph Brink M.D. /edvin TD: 04/23/2017 16:03 JOB #: [id number] OPERATIVE REPORT Page 1 of 1 X Joseph Brink MD PROCEDURE OPERATIVE NOTE
--- NOTE | ~2017-04-01 | CR7 ---
[facility] A Service of [facility] & [facility] RADIOLOGY TEXT RESULTS PATIENT: LUTHER RAMIREZ LOCATION: [address] : [birth year] UNIT #: [id number] AGE: [address]: Dave Hansen MD SEX: M ORDER DR: [id number] [facility] [address]. [place], [place] [address] [id number] I MR#: [id number] Acc #: [id number] NAME: LUTHER RAMIREZ : 1980 SEX: M STUDY DATE/TIME: 04/21/2017 20:07 UNIT: [facility] ROOM: [facility] STUDY DESCRIPTION: CR Abdomen Single AP View Attending Physician: Dave Hansen M.D. Ordering Physician: Dave Hansen M.D. Primary Care Physician: Dinah Pike MEDICAL IMAGING REPORT This report is preliminary unless electronic signature is present EXAM Single view abdomen INDICATION Abdominal distension. Hold PEG tube. FINDINGS Single portable AP view of the abdomen compared to CT abdomen and pelvis dated 04/19/2017. The bowel gas pattern is nonobstructed. There is enteric contrast throughout the colon. There is a borderline loop of small bowel in the mid abdomen, near the umbilicus. This is fairly similar to the prior CT scan. IMPRESSION 1. Enteric contrast throughout the colon. 2. There are a few isolated loops of small bowel in the mid to left abdomen that are slightly dilated, similar to the recent CT scan. Dictated by... Jeremy Santana M.D. THIS IS AN ELECTRONICALLY VERIFIED REPORT Jeremy Santana M.D. at 04/22/2017 2:21 AM PAPO/edwardo TD: 04/22/2017 00:36 JOB #: [id number] MEDICAL IMAGING REPORT Page 1 of 1 COPY
--- NOTE | ~2017-04-01 | CR7 ---
[facility] A Service of [facility] & [facility] RADIOLOGY TEXT RESULTS PATIENT: LUTHER RAMIREZ LOCATION: [address] : [birth year] UNIT #: [id number] AGE: [address]: Dave Hansen MD SEX: M ORDER DR: [id number] [facility] [address] [place], [place] [address] [id number] I MR#: [id number] Acc #: [id number] NAME: LUTHER RAMIREZ : 1980 SEX: M STUDY DATE/TIME: 04/18/2017 5:02 UNIT: [facility] ROOM: [facility] STUDY DESCRIPTION: CR Abdomen Single AP View Attending Physician: Dave Hansen M.D. Ordering Physician: Dave Hansen M.D. Primary Care Physician: Dinah Pike MEDICAL IMAGING REPORT This report is preliminary unless electronic signature is present EXAM Single view abdomen INDICATION Malpositioned feeding tube. Ileus. FINDINGS AP radiograph of the abdomen compared to 04/17/2017. The air-filled loops of small bowel have slightly improved in the interval. The enteric contrast column has progressed from the stomach into the left side of the colon. There is a Kelley catheter in the bladder. No acute osseous abnormalities. IMPRESSION Improving small bowel gas pattern with some persistent dilated loops. Dictated by... Jeremy Santana M.D. THIS IS AN ELECTRONICALLY VERIFIED REPORT Jeremy Santana M.D. at 04/18/2017 11:14 PM PAPO/johanny TD: 04/18/2017 09:22 JOB #: [id number] MEDICAL IMAGING REPORT Page 1 of 1 COPY
--- NOTE | ~2017-04-01 | CR72 ---
[facility] A Service of [facility] & [facility] RADIOLOGY TEXT RESULTS PATIENT: LUTHER ARMIREZ LOCATION: [address] : [birth year] UNIT #: [id number] AGE: [address]: Dave Hansen MD SEX: M ORDER DR: [id number] [facility] [address] [facility]. [place], [place] [address] [id number] I MR#: [id number] Acc #: [id number] NAME: LUTHER RAMIREZ : 1980 SEX: M STUDY DATE/TIME: 04/18/2017 5:01 UNIT: [facility] ROOM: [facility] STUDY DESCRIPTION: CR Chest Single View Portable Attending Physician: Dave Hansen M.D. Ordering Physician: Vitor Scherer M.D. Primary Care Physician: Dinah Pike MEDICAL IMAGING REPORT This report is preliminary unless electronic signature is present EXAM Single view chest. INDICATION Respiratory failure. FINDINGS Single, portable, AP view of the chest compared to 04/17/2017. The endotracheal tube has been repositioned. The tip is now 2 cm above the megan. Heart and mediastinal contours are stable. Mild left perihilar airspace opacities similar to the prior study. No pneumothorax. IMPRESSION Retraction of the endotracheal tube, now approximately 2 cm above the megan, otherwise no significant change. Dictated by... Jeremy Santana M.D. THIS IS AN ELECTRONICALLY VERIFIED REPORT Jeremy Santana M.D. at 04/18/2017 11:14 PM PAPO/johanny TD: 04/18/2017 08:49 JOB #: [id number] MEDICAL IMAGING REPORT Page 1 of 1 COPY
--- NOTE | ~2017-04-01 | CR72 ---
[facility] A Service of [facility] RADIOLOGY TEXT RESULTS PATIENT: LUTHER RAMIREZ LOCATION: [address] : [birth year] UNIT #: [id number] AGE: [address]: Dave Hansen MD SEX: M ORDER DR: [id number] [facility] [address] [place], [place] [address] [id number] I MR#: [id number] Acc #: [id number] NAME: LUTHER RAMIREZ : 1980 SEX: M STUDY DATE/TIME: 04/08/2017 19:43 UNIT: [facility] ROOM: [facility] STUDY DESCRIPTION: CR Chest Single View Portable Attending Physician: Dave Hansen M.D. Ordering Physician: Dave Hansen M.D. Primary Care Physician: Dinah Pike MEDICAL IMAGING REPORT This report is preliminary unless electronic signature is present EXAM Portable chest, 04/08/2017 HISTORY 37-year-old male with endotracheal tube placement today. COMPARISON Chest 04/01/2017 FINDINGS Frontal chest demonstrates placement of an endotracheal tube. The tip projects 5 cm above the megan. Lungs are well aerated. No pneumothorax. Right PICC line tip terminates in the right axillary vein. Heart size and mediastinum within normal limits. Pulmonary vasculature unremarkable. IMPRESSION 1. Placement of endotracheal tube with tip projecting 5 cm above the megan. 2. Right PICC line tip projects over the right axillary vein. 3. No pneumothorax. No other acute chest findings. Dictated by... Roldan Borjas M.D. THIS IS AN ELECTRONICALLY VERIFIED REPORT Roldan Borjas M.D. at 04/08/2017 10:55 PM POOJA/edwardo TD: 04/08/2017 22:24 JOB #: [id number] [facility] A Service [facility] RADIOLOGY TEXT RESULTS PATIENT: LUTHER RAMIREZ LOCATION: [facility] : [birth year] UNIT #: [id number] AGE: [address]: Dave Hansen MD SEX: M ORDER DR: MEDICAL IMAGING REPORT Page 1 of 1 COPY
--- NOTE | ~2017-04-01 | CR72 ---
[facility] A Service of [facility] & [facility] RADIOLOGY TEXT RESULTS PATIENT: LUTHER RAMIREZ LOCATION: [address] : [birth year] UNIT #: [id number] AGE: [address]: Dave Hansen MD SEX: M ORDER DR: [id number] [facility] [address] [facility]. [place], [place] [address] [id number] I MR#: [id number] Acc #: [id number] NAME: LUTHER RAMIREZ : 1980 SEX: M STUDY DATE/TIME: 04/21/2017 4:16 UNIT: [facility] ROOM: [facility] STUDY DESCRIPTION: CR Chest Single View Portable Attending Physician: Dave Hansen M.D. Ordering Physician: Vitor Scherer M.D. Primary Care Physician: Dinah Pike MEDICAL IMAGING REPORT This report is preliminary unless electronic signature is present EXAM Single view chest INDICATIONS Respiratory failure FINDINGS Single portable AP view of the chest compared to 04/20/2017. Left PICC and the endotracheal tube remain in place. Heart and mediastinal contours are unchanged. Patchy bilateral airspace opacities are similar to prior study. No pneumothorax. IMPRESSION No interval change Dictated by... Jeremy Santana M.D. THIS IS AN ELECTRONICALLY VERIFIED REPORT Jeremy Santana M.D. at 04/23/2017 12:22 AM PAPO/joann TD: 04/21/2017 07:14 JOB #: [id number] MEDICAL IMAGING REPORT Page 1 of 1 COPY
[2017-04-01 09:58] LABS: BASOPHIL# 0.3 X10e3 (0-0.3); BASOPHIL% 1.1 % (0-2.5); EOSINOPHIL# 0.4 X10e3 (0-0.7); EOSINOPHIL% 1.3 % (0.0-7.0); HEMATOCRIT 39.3 % (38.0-50.0); HEMOGLOBIN 12.4 gm/dL (13.0-16.0); LYMPHOCYTE# 1.7 X10e3 (1.0-3.5); LYMPHOCYTE% 6.3 % (17.0-45.0); MEAN CELL VOLUME 90.6 FL (83-96); MEAN CORPUSCULAR HEMOGLOBIN 28.5 PG (28-34); MEAN CORPUSCULAR HGB CONC 31.5 g/dL (30-36); MEAN PLATELET VOLUME 8.6 FL (6.5-11.5); MONOCYTE# 1.5 X10e3 (0-1.0); MONOCYTE% 5.5 % (3.0-12.0); NEUTROPHIL# 23.6 X10e3 (1.5-7.1); NEUTROPHIL% 85.8 % (40-75); RED BLOOD COUNT 4.34 X10e (3.90-5.60); RED CELL DISTRIBUTION WIDTH 14.8 % (11.0-15.5); WHITE BLOOD COUNT 27.5 X10e3 (4.0-10.5)
[2017-04-01 10:18] LABS: PLATELET COUNT 543 X10e3 (140-420)
[2017-04-01 10:19] LABS: BILIRUBIN, DIRECT 0.2 mg/dL (0.0-0.2); BILIRUBIN,INDIRECT 0.3 mg/dL (0.0-0.9); BILIRUBIN,TOTAL 0.5 mg/dL (0.2-2.0); BUN/CREATININE RATIO 16.25; CALCIUM SERUM 10.5 mg/dL (8.4-10.2); CREATININE SERUM 0.8 mg/dL (0.6-1.4); DIFF IND YES; POTASSIUM 4.4 mmol/L (3.5-5.1); PROTEIN TOTAL SERUM 8.7 g/dL (6.0-8.3)
[2017-04-01 10:21] LABS: ANISOCYTOSIS SL; PLATELET ESTIMATE INCREASED (NORMAL)
[2017-04-01] MEDS ORDERED: ZYRTEC10 M1 PEG (14:06)
[2017-04-01] MEDS ORDERED: CITRACAL + D E1 EACH PEG (14:08)
[2017-04-01] MEDS ORDERED: DOXAZOSIN MESYLA4 MG PEG (14:09)
[2017-04-01] MEDS ORDERED: FLEET ENEMA133 M1 PR (14:10)
[2017-04-01] MEDS ORDERED: GAS RELIEF125 MG PEG (14:11)
[2017-04-01] MEDS ORDERED: LACTULOSE10 GM/15 M PEG (14:12)
[2017-04-01] MEDS ORDERED: DILANTIN50 MG PEG (14:15)
[2017-04-01] MEDS ORDERED: POTASSIUM CHLO20 ME2 PEG (14:17)
[2017-04-01] MEDS ORDERED: SABRIL500 MG PEG ×2 (14:18→14:19)
[2017-04-01] MEDS ORDERED: RANITIDINE HCL150 M1 PEG (14:18)
[2017-04-01] MEDS ORDERED: SENNA8.6 M1 PEG (14:20)
[2017-04-01] MEDS ORDERED: ACETAMINOPHEN325 MG PEG (14:21)
[2017-04-01] MEDS ORDERED: CLONAZEPAM0.5 MG PEG (14:25)
[2017-04-01] MEDS ORDERED: DIASTAT ACUDIA1 EAC1 PR (14:28)
[2017-04-01] MEDS ORDERED: JEVITY 1.5 CAL237 ML PEG (14:31)
[2017-04-01] MEDS ORDERED: WATER3780 ML PEG (14:33)
[2017-04-01] MEDS ORDERED: TOPICAINE113 GM TOP (14:52)
[2017-04-01] MEDS ORDERED: TRIPLE ANTIBIOT14 GM TOP (14:53)
[2017-04-01] MEDS ORDERED: SOD BICARBONATE PEG (14:58)
[2017-04-01] MEDS ORDERED: THERAPEUTIC VI1 EACH PO (15:00)
[2017-04-01] MEDS ORDERED: VITAMIN D1000 UNIT PEG (15:01)
[2017-04-01] MEDS ORDERED: ZONEGRAN100 M1 PEG (15:02)
[2017-04-01] MEDS ORDERED: MILK OF MAGNESIA PEG (15:04)
[2017-04-01] MEDS ORDERED: MELATONIN5 M1 PEG (15:04)
[2017-04-01] MEDS ORDERED: ONFI10 MG PEG (15:05)
[2017-04-01] MEDS ORDERED: ONFI20 MG PEG (15:06)
[2017-04-01] MEDS ORDERED: PEG3350510 GM PEG (15:10)
[2017-04-01] MEDS ORDERED: PHENOBARBITAL97.2 MG PEG (15:10)
[2017-04-01] MEDS ORDERED: LAMOTRIGINE100 MG PEG (15:11)
[2017-04-01] MEDS ORDERED: LAMOTRIGINE200 MG PEG (15:12)
[2017-04-01] MEDS ORDERED: LAMOTRIGINE25 M1 PEG (15:16)
[2017-04-01] MEDS ORDERED: LEVETIRACETAM1000 MG PEG ×2 (15:18→15:20)
[2017-04-02 06:17] LABS: HEMOGLOBIN 10.1 gm/dL (13.0-16.0); MEAN CELL VOLUME 88.7 FL (83-96); MEAN CORPUSCULAR HEMOGLOBIN 27.9 PG (28-34); MEAN CORPUSCULAR HGB CONC 31.5 g/dL (30-36); MEAN PLATELET VOLUME 7.7 FL (6.5-11.5); RED BLOOD COUNT 3.61 X10e (3.90-5.60); RED CELL DISTRIBUTION WIDTH 14.5 % (11.0-15.5)
[2017-04-02 07:04] LABS: BUN/CREATININE RATIO 16.66; CALCIUM SERUM 8.7 mg/dL (8.4-10.2); CREATININE SERUM 0.6 mg/dL (0.6-1.4); GLOM FILT RATE Estimated 129.4 mL/min (>60); POTASSIUM 4.1 mmol/L (3.5-5.1)
[2017-04-03 06:01] LABS: HEMATOCRIT 29.3 % (38.0-50.0); HEMOGLOBIN 9.2 gm/dL (13.0-16.0); MEAN CELL VOLUME 88.9 FL (83-96); MEAN CORPUSCULAR HEMOGLOBIN 27.9 PG (28-34); MEAN CORPUSCULAR HGB CONC 31.4 g/dL (30-36); MEAN PLATELET VOLUME 7.8 FL (6.5-11.5); RED BLOOD COUNT 3.3 X10e (3.90-5.60); RED CELL DISTRIBUTION WIDTH 14.3 % (11.0-15.5); WHITE BLOOD COUNT 19.9 X10e3 (4.0-10.5)
[2017-04-04 01:49] LABS: URINE APPEARANCE TURBID; URINE BLOOD NEG (NEG); URINE COLOR DK YELLOW; URINE GLUCOSE NEG (NEG); URINE KETONE TRACE (NEG); URINE LEUKOCYTE ESTERASE 1+ (NEG); URINE NITRATE POS (NEG); URINE PROTEIN 1+ (NEG); URINE SPECIFIC GRAVITY 1.038 (1.003-1.035)
[2017-04-04 01:52] LABS: URBCS1 AUWI 0-2 /[HPF] (0-2); URINE BACTERIA AUWI NEG (NEGATIVE); URINE SQUAMOUS EPITHELIAL CELL MOD /[HPF]
[2017-04-04 02:11] LABS: URINE BILIRUBIN NEG (NEG)
[2017-04-04 02:12] LABS: URINE MUCUS PRESENT
[2017-04-04 06:05] LABS: HEMOGLOBIN 10.1 gm/dL (13.0-16.0); MEAN CELL VOLUME 89.6 FL (83-96); MEAN CORPUSCULAR HEMOGLOBIN 28.3 PG (28-34); MEAN CORPUSCULAR HGB CONC 31.5 g/dL (30-36); RED BLOOD COUNT 3.57 X10e (3.90-5.60); RED CELL DISTRIBUTION WIDTH 14.5 % (11.0-15.5); WHITE BLOOD COUNT 19.3 X10e3 (4.0-10.5)
[2017-04-04 06:56] LABS: BUN/CREATININE RATIO 22.85; CALCIUM SERUM 8.6 mg/dL (8.4-10.2); CREATININE SERUM 0.7 mg/dL (0.6-1.4); GLOM FILT RATE Estimated 121.5 mL/min (>60); POTASSIUM 3.8 mmol/L (3.5-5.1)
[2017-04-05 05:17] LABS: BASOPHIL# 0.1 X10e3 (0-0.3); BASOPHIL% 0.7 % (0-2.5); EOSINOPHIL# 0.8 X10e3 (0-0.7); EOSINOPHIL% 5.6 % (0.0-7.0); HEMATOCRIT 32.6 % (38.0-50.0); HEMOGLOBIN 10.2 gm/dL (13.0-16.0); LYMPHOCYTE# 1.8 X10e3 (1.0-3.5); LYMPHOCYTE% 12.4 % (17.0-45.0); MEAN CELL VOLUME 89.1 FL (83-96); MEAN CORPUSCULAR HEMOGLOBIN 27.7 PG (28-34); MEAN CORPUSCULAR HGB CONC 31.1 g/dL (30-36); MEAN PLATELET VOLUME 8.1 FL (6.5-11.5); MONOCYTE# 1.6 X10e3 (0-1.0); MONOCYTE% 11.2 % (3.0-12.0); NEUTROPHIL# 9.9 X10e3 (1.5-7.1); NEUTROPHIL% 70.1 % (40-75); PLATELET COUNT 501 X10e3 (140-420); RED BLOOD COUNT 3.66 X10e (3.90-5.60); RED CELL DISTRIBUTION WIDTH 14.6 % (11.0-15.5); WHITE BLOOD COUNT 14.2 X10e3 (4.0-10.5)
[2017-04-05 05:18] LABS: DIFF IND NO
[2017-04-06 06:50] LABS: BASOPHIL# 0.1 X10e3 (0-0.3); BASOPHIL% 0.6 % (0-2.5); EOSINOPHIL# 1.2 X10e3 (0-0.7); EOSINOPHIL% 10.4 % (0.0-7.0); LYMPHOCYTE# 2.2 X10e3 (1.0-3.5); LYMPHOCYTE% 19.1 % (17.0-45.0); MEAN CELL VOLUME 90.2 FL (83-96); MEAN PLATELET VOLUME 7.6 FL (6.5-11.5); MONOCYTE# 1.3 X10e3 (0-1.0); MONOCYTE% 11.3 % (3.0-12.0); NEUTROPHIL# 6.7 X10e3 (1.5-7.1); NEUTROPHIL% 58.6 % (40-75); PLATELET COUNT 375 X10e3 (140-420); RED BLOOD COUNT 3.21 X10e (3.90-5.60); RED CELL DISTRIBUTION WIDTH 14.8 % (11.0-15.5); WHITE BLOOD COUNT 11.4 X10e3 (4.0-10.5)
[2017-04-06 06:55] LABS: DIFF IND NO
[2017-04-06 07:39] LABS: BUN/CREATININE RATIO 52.5; CALCIUM SERUM 8.3 mg/dL (8.4-10.2); CREATININE SERUM 0.4 mg/dL (0.6-1.4); GLOM FILT RATE Estimated 152.9 mL/min (>60); POTASSIUM 3.4 mmol/L (3.5-5.1)
[2017-04-07 05:29] LABS: HEMATOCRIT 27.9 % (38.0-50.0); HEMOGLOBIN 8.6 gm/dL (13.0-16.0); MEAN CORPUSCULAR HEMOGLOBIN 27.9 PG (28-34); MEAN PLATELET VOLUME 8.3 FL (6.5-11.5); RED BLOOD COUNT 3.1 X10e (3.90-5.60); RED CELL DISTRIBUTION WIDTH 14.7 % (11.0-15.5); WHITE BLOOD COUNT 11.9 X10e3 (4.0-10.5)
[2017-04-07 05:54] LABS: CALCIUM SERUM 7.8 mg/dL (8.4-10.2); CREATININE SERUM 0.5 mg/dL (0.6-1.4); GLOM FILT RATE Estimated 139.5 mL/min (>60)
[2017-04-08 04:29] LABS: HEMOGLOBIN 8.8 gm/dL (13.0-16.0); MEAN CELL VOLUME 88.1 FL (83-96); MEAN CORPUSCULAR HEMOGLOBIN 27.5 PG (28-34); MEAN CORPUSCULAR HGB CONC 31.2 g/dL (30-36); MEAN PLATELET VOLUME 7.3 FL (6.5-11.5); RED BLOOD COUNT 3.18 X10e (3.90-5.60); RED CELL DISTRIBUTION WIDTH 14.6 % (11.0-15.5); WHITE BLOOD COUNT 12.4 X10e3 (4.0-10.5)
[2017-04-08 05:00] LABS: CALCIUM SERUM 7.7 mg/dL (8.4-10.2); CREATININE SERUM 0.5 mg/dL (0.6-1.4); GLOM FILT RATE Estimated 139.5 mL/min (>60)
[2017-04-08 05:02] LABS: POTASSIUM 2.8 mmol/L (3.5-5.1)
[2017-04-08 18:31] LABS: ARTERIAL BLD GAS O2 SATURATION 94.7 % (90.0-100.0); ARTERIAL BLOOD GAS CARBOXY HB 0.6 %sat (0.0-9.0); ARTERIAL BLOOD GAS HCO3 21.8 mmol/L; ARTERIAL BLOOD GAS MET HB 0.6 %sat (0.0-2.0); ARTERIAL BLOOD GAS PCO2 34.3 mmHg (35.0-45.0); ARTERIAL BLOOD GAS pH 7.413 (7.350-7.450)
[2017-04-08 18:32] LABS: ARTERIAL BLOOD GAS ALLEN TEST NORMAL; ARTERIAL BLOOD GAS ART SITE LEFT RADIAL; ARTERIAL BLOOD GAS DELIVERY NASAL CANNULA; ARTERIAL BLOOD GAS PO2 76.7 mmHg (80.0-100); ARTERIAL DRAW? YES
[2017-04-08 20:57] LABS: ARTERIAL BLOOD GAS CARBOXY HB 0.2 %sat (0.0-9.0); ARTERIAL BLOOD GAS MET HB 0.9 %sat (0.0-2.0); ARTERIAL BLOOD GAS PCO2 38.1 mmHg (35.0-45.0); ARTERIAL BLOOD GAS pH 7.389 (7.350-7.450)
[2017-04-08 21:01] LABS: ARTERIAL BLOOD GAS ALLEN TEST NORMAL; ARTERIAL BLOOD GAS ART SITE RIGHT RADIAL; ARTERIAL BLOOD GAS DELIVERY VENT; ARTERIAL BLOOD GAS VENT MODE AC; ARTERIAL DRAW? YES
[2017-04-09 03:56] LABS: ARTERIAL BLD GAS O2 SATURATION 98.6 % (90.0-100.0); ARTERIAL BLOOD GAS CARBOXY HB 0.6 %sat (0.0-9.0); ARTERIAL BLOOD GAS HCO3 24.4 mmol/L; ARTERIAL BLOOD GAS MET HB 0.9 %sat (0.0-2.0); ARTERIAL BLOOD GAS PCO2 40.1 mmHg (35.0-45.0); ARTERIAL BLOOD GAS pH 7.392 (7.350-7.450)
[2017-04-09 04:00] LABS: ARTERIAL BLOOD GAS ART SITE RIGHT BRACHIAL; ARTERIAL BLOOD GAS DELIVERY VENT; ARTERIAL BLOOD GAS VENT MODE AC; ARTERIAL DRAW? YES
[2017-04-09 05:12] LABS: HEMATOCRIT 27.8 % (38.0-50.0); HEMOGLOBIN 8.7 gm/dL (13.0-16.0); MEAN CELL VOLUME 88.6 FL (83-96); MEAN CORPUSCULAR HEMOGLOBIN 27.9 PG (28-34); MEAN CORPUSCULAR HGB CONC 31.5 g/dL (30-36); MEAN PLATELET VOLUME 7.1 FL (6.5-11.5); RED BLOOD COUNT 3.13 X10e (3.90-5.60); RED CELL DISTRIBUTION WIDTH 14.7 % (11.0-15.5); WHITE BLOOD COUNT 11.7 X10e3 (4.0-10.5)
[2017-04-09 05:43] LABS: DILANTIN (PHENYTOIN) 6.6 ug/mL (10.0-20.0)
[2017-04-10 04:39] LABS: ARTERIAL BLD GAS O2 SATURATION 97.9 % (90.0-100.0); ARTERIAL BLOOD GAS CARBOXY HB 0.6 %sat (0.0-9.0); ARTERIAL BLOOD GAS HCO3 27.7 mmol/L; ARTERIAL BLOOD GAS MET HB 0.7 %sat (0.0-2.0); ARTERIAL BLOOD GAS PCO2 39.4 mmHg (35.0-45.0); ARTERIAL BLOOD GAS pH 7.455 (7.350-7.450)
[2017-04-10 04:40] LABS: ARTERIAL BLOOD GAS ALLEN TEST NORMAL; ARTERIAL BLOOD GAS ART SITE RIGHT RADIAL; ARTERIAL BLOOD GAS DELIVERY VENT; ARTERIAL BLOOD GAS VENT MODE AC; ARTERIAL DRAW? YES
[2017-04-10 09:34] LABS: BASOPHIL% 0.5 % (0-2.5); EOSINOPHIL# 0.9 X10e3 (0-0.7); EOSINOPHIL% 9.7 % (0.0-7.0); HEMATOCRIT 25.7 % (38.0-50.0); HEMOGLOBIN 8.1 gm/dL (13.0-16.0); LYMPHOCYTE# 1.8 X10e3 (1.0-3.5); LYMPHOCYTE% 19.2 % (17.0-45.0); MEAN CELL VOLUME 89.2 FL (83-96); MEAN CORPUSCULAR HGB CONC 31.4 g/dL (30-36); MEAN PLATELET VOLUME 7.9 FL (6.5-11.5); MONOCYTE# 0.8 X10e3 (0-1.0); MONOCYTE% 8.3 % (3.0-12.0); NEUTROPHIL# 5.8 X10e3 (1.5-7.1); NEUTROPHIL% 62.3 % (40-75); PLATELET COUNT 241 X10e3 (140-420); RED BLOOD COUNT 2.87 X10e (3.90-5.60); RED CELL DISTRIBUTION WIDTH 14.9 % (11.0-15.5); WHITE BLOOD COUNT 9.3 X10e3 (4.0-10.5)
[2017-04-10 09:37] LABS: DIFF IND NO
[2017-04-11 03:50] LABS: ARTERIAL BLD GAS O2 SATURATION 98.2 % (90.0-100.0); ARTERIAL BLOOD GAS CARBOXY HB 0.3 %sat (0.0-9.0); ARTERIAL BLOOD GAS HCO3 30.1 mmol/L; ARTERIAL BLOOD GAS MET HB 0.7 %sat (0.0-2.0); ARTERIAL BLOOD GAS PCO2 41.5 mmHg (35.0-45.0); ARTERIAL BLOOD GAS pH 7.469 (7.350-7.450)
[2017-04-11 03:54] LABS: ARTERIAL BLOOD GAS ART SITE RIGHT BRACHIAL; ARTERIAL BLOOD GAS DELIVERY VENT; ARTERIAL BLOOD GAS VENT MODE AC; ARTERIAL DRAW? YES
[2017-04-11 05:49] LABS: BASOPHIL% 0.3 % (0-2.5); DIFF IND NO; EOSINOPHIL# 0.7 X10e3 (0-0.7); EOSINOPHIL% 8.6 % (0.0-7.0); HEMOGLOBIN 8.2 gm/dL (13.0-16.0); LYMPHOCYTE# 1.7 X10e3 (1.0-3.5); LYMPHOCYTE% 20.1 % (17.0-45.0); MEAN CELL VOLUME 89.3 FL (83-96); MEAN CORPUSCULAR HGB CONC 31.3 g/dL (30-36); MEAN PLATELET VOLUME 7.8 FL (6.5-11.5); MONOCYTE# 0.8 X10e3 (0-1.0); MONOCYTE% 9.8 % (3.0-12.0); NEUTROPHIL# 5.2 X10e3 (1.5-7.1); NEUTROPHIL% 61.2 % (40-75); PLATELET COUNT 214 X10e3 (140-420); RED BLOOD COUNT 2.92 X10e (3.90-5.60); RED CELL DISTRIBUTION WIDTH 15.1 % (11.0-15.5); WHITE BLOOD COUNT 8.6 X10e3 (4.0-10.5)
[2017-04-11 06:21] LABS: CALCIUM SERUM 7.9 mg/dL (8.4-10.2); CARBON DIOXIDE 29 mmol/L (22-31); CHLORIDE 111 mmol/L (100-111); CREATININE SERUM 0.3 mg/dL (0.6-1.4); GLOM FILT RATE Estimated 172.1 mL/min (>60); GLUCOSE FASTING 104 mg/dL (70-110); SODIUM 146 mmol/L (135-145)
[2017-04-11 06:31] LABS: DILANTIN (PHENYTOIN) 6.9 ug/mL (10.0-20.0)
[2017-04-11 06:36] LABS: BLOOD UREA NITROGEN <5 mg/dL (9-23); BUN/CREATININE RATIO 16.66
[2017-04-11 15:52] LABS: BLOOD UREA NITROGEN <5 mg/dL (9-23); CALCIUM SERUM 7.6 mg/dL (8.4-10.2); CARBON DIOXIDE 27 mmol/L (22-31); CHLORIDE 109 mmol/L (100-111); CREATININE SERUM 0.4 mg/dL (0.6-1.4); GLOM FILT RATE Estimated 152.9 mL/min (>60); GLUCOSE FASTING 93 mg/dL (70-110); POTASSIUM 3.5 mmol/L (3.5-5.1); SODIUM 141 mmol/L (135-145)
[2017-04-12 06:49] LABS: CALCIUM SERUM 7.7 mg/dL (8.4-10.2); CARBON DIOXIDE 29 mmol/L (22-31); CHLORIDE 107 mmol/L (100-111); CREATININE SERUM 0.5 mg/dL (0.6-1.4); GLOM FILT RATE Estimated 139.5 mL/min (>60); GLUCOSE FASTING 111 mg/dL (70-110); MAGNESIUM 1.9 mg/dL (1.6-3.0); POTASSIUM 3.7 mmol/L (3.5-5.1); SODIUM 142 mmol/L (135-145)
[2017-04-12 06:52] LABS: BLOOD UREA NITROGEN <5 mg/dL (9-23)
[2017-04-13 05:54] LABS: BASOPHIL% 0.3 % (0-2.5); EOSINOPHIL# 0.5 X10e3 (0-0.7); EOSINOPHIL% 4.7 % (0.0-7.0); HEMOGLOBIN 8.1 gm/dL (13.0-16.0); LYMPHOCYTE# 1.6 X10e3 (1.0-3.5); LYMPHOCYTE% 14.9 % (17.0-45.0); MEAN CELL VOLUME 89.2 FL (83-96); MEAN CORPUSCULAR HGB CONC 31.4 g/dL (30-36); MEAN PLATELET VOLUME 8.2 FL (6.5-11.5); MONOCYTE# 1.1 X10e3 (0-1.0); MONOCYTE% 10.3 % (3.0-12.0); NEUTROPHIL# 7.4 X10e3 (1.5-7.1); NEUTROPHIL% 69.8 % (40-75); PLATELET COUNT 184 X10e3 (140-420); RED BLOOD COUNT 2.91 X10e (3.90-5.60); RED CELL DISTRIBUTION WIDTH 15.1 % (11.0-15.5); WHITE BLOOD COUNT 10.5 X10e3 (4.0-10.5)
[2017-04-13 06:21] LABS: DIFF IND NO
[2017-04-13 06:22] LABS: BUN/CREATININE RATIO 12.5; CALCIUM SERUM 7.8 mg/dL (8.4-10.2); CREATININE SERUM 0.4 mg/dL (0.6-1.4); DILANTIN (PHENYTOIN) 9.4 ug/mL (10.0-20.0); GLOM FILT RATE Estimated 152.9 mL/min (>60); POTASSIUM 3.6 mmol/L (3.5-5.1)
[2017-04-14 05:06] LABS: BASOPHIL% 0.4 % (0-2.5); EOSINOPHIL# 0.4 X10e3 (0-0.7); HEMATOCRIT 24.7 % (38.0-50.0); LYMPHOCYTE# 1.7 X10e3 (1.0-3.5); LYMPHOCYTE% 18.4 % (17.0-45.0); MEAN CELL VOLUME 87.4 FL (83-96); MEAN CORPUSCULAR HEMOGLOBIN 28.3 PG (28-34); MEAN CORPUSCULAR HGB CONC 32.4 g/dL (30-36); MEAN PLATELET VOLUME 7.8 FL (6.5-11.5); MONOCYTE# 1.2 X10e3 (0-1.0); NEUTROPHIL% 64.2 % (40-75); PLATELET COUNT 177 X10e3 (140-420); RED BLOOD COUNT 2.83 X10e (3.90-5.60); RED CELL DISTRIBUTION WIDTH 15.1 % (11.0-15.5); WHITE BLOOD COUNT 9.3 X10e3 (4.0-10.5)
[2017-04-14 05:08] LABS: DIFF IND NO
[2017-04-14 09:10] LABS: BUN/CREATININE RATIO 12.5; CALCIUM SERUM 7.6 mg/dL (8.4-10.2); CREATININE SERUM 0.4 mg/dL (0.6-1.4); GLOM FILT RATE Estimated 152.9 mL/min (>60); POTASSIUM 3.9 mmol/L (3.5-5.1)
[2017-04-14 09:29] LABS: ARTERIAL BLOOD GAS CARBOXY HB 0.7 %sat (0.0-9.0); ARTERIAL BLOOD GAS HCO3 34.1 mmol/L; ARTERIAL BLOOD GAS MET HB 1.1 %sat (0.0-2.0); ARTERIAL BLOOD GAS PO2 92.4 mmHg (80.0-100); ARTERIAL BLOOD GAS pH 7.518 (7.350-7.450)
[2017-04-14 09:30] LABS: ARTERIAL BLOOD GAS ART SITE RIGHT BRACHIAL; ARTERIAL BLOOD GAS DELIVERY VENT; ARTERIAL BLOOD GAS VENT MODE CPAP; ARTERIAL DRAW? YES
[2017-04-15 01:42] LABS: DEPAKENE (VALPROIC ACID) 74 ug/mL (50-125)
[2017-04-15 05:32] LABS: BASOPHIL% 0.2 % (0-2.5); EOSINOPHIL# 0.1 X10e3 (0-0.7); EOSINOPHIL% 0.5 % (0.0-7.0); HEMATOCRIT 27.6 % (38.0-50.0); HEMOGLOBIN 8.6 gm/dL (13.0-16.0); MEAN CELL VOLUME 87.3 FL (83-96); MEAN CORPUSCULAR HEMOGLOBIN 27.1 PG (28-34); MEAN PLATELET VOLUME 7.5 FL (6.5-11.5); MONOCYTE# 2.1 X10e3 (0-1.0); MONOCYTE% 12.2 % (3.0-12.0); NEUTROPHIL# 13.9 X10e3 (1.5-7.1); NEUTROPHIL% 81.1 % (40-75); PLATELET COUNT 237 X10e3 (140-420); RED BLOOD COUNT 3.16 X10e (3.90-5.60); RED CELL DISTRIBUTION WIDTH 14.9 % (11.0-15.5)
[2017-04-15 05:34] LABS: DIFF IND YES; WHITE BLOOD COUNT 17.2 X10e3 (4.0-10.5)
[2017-04-15 06:33] LABS: ANISOCYTOSIS SL; PLATELET ESTIMATE NORMAL (NORMAL); RBC NORMAL YES
[2017-04-15 06:34] LABS: HYPOCHROMIA SL
[2017-04-15 07:16] LABS: BUN/CREATININE RATIO 12.5; CALCIUM SERUM 7.7 mg/dL (8.4-10.2); CREATININE SERUM 0.4 mg/dL (0.6-1.4); DILANTIN (PHENYTOIN) 12.1 ug/mL (10.0-20.0); GLOM FILT RATE Estimated 152.9 mL/min (>60); MAGNESIUM 1.6 mg/dL (1.6-3.0); POTASSIUM 3.6 mmol/L (3.5-5.1)
[2017-04-16 05:13] LABS: BASOPHIL% 0.3 % (0-2.5); EOSINOPHIL# 0.3 X10e3 (0-0.7); EOSINOPHIL% 2.1 % (0.0-7.0); HEMATOCRIT 28.6 % (38.0-50.0); HEMOGLOBIN 8.9 gm/dL (13.0-16.0); LYMPHOCYTE# 1.3 X10e3 (1.0-3.5); LYMPHOCYTE% 10.1 % (17.0-45.0); MEAN CORPUSCULAR HEMOGLOBIN 27.1 PG (28-34); MEAN CORPUSCULAR HGB CONC 31.2 g/dL (30-36); MEAN PLATELET VOLUME 7.7 FL (6.5-11.5); MONOCYTE# 0.4 X10e3 (0-1.0); MONOCYTE% 2.8 % (3.0-12.0); NEUTROPHIL# 10.9 X10e3 (1.5-7.1); NEUTROPHIL% 84.7 % (40-75); PLATELET COUNT 247 X10e3 (140-420); RED BLOOD COUNT 3.29 X10e (3.90-5.60); RED CELL DISTRIBUTION WIDTH 15.3 % (11.0-15.5); WHITE BLOOD COUNT 12.9 X10e3 (4.0-10.5)
[2017-04-16 05:18] LABS: DIFF IND NO
[2017-04-16 05:57] LABS: CALCIUM SERUM 7.6 mg/dL (8.4-10.2); CREATININE SERUM 0.5 mg/dL (0.6-1.4); GLOM FILT RATE Estimated 139.5 mL/min (>60); MAGNESIUM 1.4 mg/dL (1.6-3.0); POTASSIUM 3.7 mmol/L (3.5-5.1)
[2017-04-16 08:35] LABS: URINE SOURCE CATH
[2017-04-16 08:38] LABS: URINE APPEARANCE CLOUDY; URINE BILIRUBIN NEG (NEG); URINE BLOOD TRACE (NEG); URINE COLOR YELLOW; URINE GLUCOSE NEG (NEG); URINE KETONE NEG (NEG); URINE LEUKOCYTE ESTERASE 3+ (NEG); URINE NITRATE POS (NEG); URINE PH 7.5 (5-8); URINE PROTEIN 1+ (NEG); URINE SPECIFIC GRAVITY 1.013 (1.003-1.035)
[2017-04-16 08:41] LABS: CULTURE INDICATED? YES; URINE BACTERIA AUWI NEG (NEGATIVE); URINE SQUAMOUS EPITHELIAL CELL NONE SEEN /[HPF]; UWBCS1 AUWI 200-300 (0-5)
[2017-04-17 04:21] LABS: BASOPHIL# 0.1 X10e3 (0-0.3); BASOPHIL% 0.1 % (0-2.5); EOSINOPHIL# 0.1 X10e3 (0-0.7); EOSINOPHIL% 0.1 % (0.0-7.0); HEMATOCRIT 29.5 % (38.0-50.0); LYMPHOCYTE# 0.9 X10e3 (1.0-3.5); LYMPHOCYTE% 1.9 % (17.0-45.0); MEAN CELL VOLUME 88.2 FL (83-96); MEAN CORPUSCULAR HGB CONC 30.6 g/dL (30-36); MONOCYTE# 6.3 X10e3 (0-1.0); MONOCYTE% 13.1 % (3.0-12.0); NEUTROPHIL# 41.2 X10e3 (1.5-7.1); NEUTROPHIL% 84.8 % (40-75); PLATELET COUNT 251 X10e3 (140-420); RED BLOOD COUNT 3.35 X10e (3.90-5.60); RED CELL DISTRIBUTION WIDTH 15.5 % (11.0-15.5); WHITE BLOOD COUNT 48.6 X10e3 (4.0-10.5)
[2017-04-17 04:22] LABS: DIFF IND YES
[2017-04-17 04:50] LABS: CALCIUM SERUM 7.5 mg/dL (8.4-10.2); CREATININE SERUM 0.6 mg/dL (0.6-1.4); GLOM FILT RATE Estimated 129.4 mL/min (>60); POTASSIUM 4.2 mmol/L (3.5-5.1)
[2017-04-17 05:01] LABS: ANISOCYTOSIS SL; PLATELET ESTIMATE NORMAL (NORMAL)
[2017-04-17 05:02] LABS: MICROCYTOSIS SL
[2017-04-17 05:13] LABS: ARTERIAL BLD GAS O2 SATURATION 84.3 % (90.0-100.0); ARTERIAL BLOOD GAS CARBOXY HB 0.8 %sat (0.0-9.0); ARTERIAL BLOOD GAS HCO3 25.5 mmol/L; ARTERIAL BLOOD GAS MET HB 0.8 %sat (0.0-2.0); ARTERIAL BLOOD GAS PCO2 34.7 mmHg (35.0-45.0); ARTERIAL BLOOD GAS pH 7.476 (7.350-7.450)
[2017-04-17 05:15] LABS: ARTERIAL BLOOD GAS ALLEN TEST NORMAL; ARTERIAL BLOOD GAS ART SITE RIGHT RADIAL; ARTERIAL BLOOD GAS DELIVERY NASAL CANNULA; ARTERIAL BLOOD GAS PO2 50.6 mmHg (80.0-100); ARTERIAL DRAW? YES
[2017-04-17 10:34] LABS: ARTERIAL BLD GAS O2 SATURATION 98.7 % (90.0-100.0); ARTERIAL BLOOD GAS CARBOXY HB 0.3 %sat (0.0-9.0); ARTERIAL BLOOD GAS HCO3 26.5 mmol/L; ARTERIAL BLOOD GAS MET HB 0.8 %sat (0.0-2.0); ARTERIAL BLOOD GAS PCO2 41.8 mmHg (35.0-45.0)
[2017-04-17 10:35] LABS: ARTERIAL BLOOD GAS ALLEN TEST NORMAL; ARTERIAL BLOOD GAS ART SITE RIGHT RADIAL; ARTERIAL BLOOD GAS DELIVERY VENT; ARTERIAL BLOOD GAS VENT MODE AC; ARTERIAL DRAW? YES
[2017-04-18 03:42] LABS: ARTERIAL BLD GAS O2 SATURATION 95.2 % (90.0-100.0); ARTERIAL BLOOD GAS CARBOXY HB 0.4 %sat (0.0-9.0); ARTERIAL BLOOD GAS HCO3 25.3 mmol/L; ARTERIAL BLOOD GAS MET HB 0.9 %sat (0.0-2.0); ARTERIAL BLOOD GAS PCO2 42.5 mmHg (35.0-45.0); ARTERIAL BLOOD GAS PO2 83.4 mmHg (80.0-100); ARTERIAL BLOOD GAS pH 7.382 (7.350-7.450)
[2017-04-18 03:46] LABS: ARTERIAL BLOOD GAS ALLEN TEST NORMAL; ARTERIAL BLOOD GAS ART SITE RIGHT RADIAL; ARTERIAL BLOOD GAS DELIVERY VENT; ARTERIAL BLOOD GAS VENT MODE A/C; ARTERIAL DRAW? YES
[2017-04-18 08:58] LABS: BASOPHIL# 0.1 X10e3 (0-0.3); BASOPHIL% 0.4 % (0-2.5); EOSINOPHIL# 0.1 X10e3 (0-0.7); EOSINOPHIL% 0.2 % (0.0-7.0); HEMATOCRIT 23.6 % (38.0-50.0); HEMOGLOBIN 7.1 gm/dL (13.0-16.0); LYMPHOCYTE# 2.3 X10e3 (1.0-3.5); MEAN CELL VOLUME 90.6 FL (83-96); MEAN CORPUSCULAR HEMOGLOBIN 27.4 PG (28-34); MEAN CORPUSCULAR HGB CONC 30.2 g/dL (30-36); MEAN PLATELET VOLUME 8.8 FL (6.5-11.5); MONOCYTE# 2.8 X10e3 (0-1.0); MONOCYTE% 13.6 % (3.0-12.0); NEUTROPHIL# 15.6 X10e3 (1.5-7.1); NEUTROPHIL% 74.8 % (40-75); RED BLOOD COUNT 2.61 X10e (3.90-5.60); RED CELL DISTRIBUTION WIDTH 15.8 % (11.0-15.5)
[2017-04-18 09:21] LABS: WHITE BLOOD COUNT 20.9 X10e3 (4.0-10.5)
[2017-04-18 09:23] LABS: DIFF IND YES; PLATELET COUNT 73 X10e3 (140-420)
[2017-04-18 09:26] LABS: ANISOCYTOSIS SL; HYPOCHROMIA SL; PLATELET ESTIMATE DECREASED (NORMAL)
[2017-04-18 09:29] LABS: ALBUMIN SERUM 1.6 g/dL (3.5-5.0); BILIRUBIN,TOTAL 0.5 mg/dL (0.2-2.0); BUN/CREATININE RATIO 37.5; CALCIUM SERUM 6.6 mg/dL (8.4-10.2); CREATININE SERUM 0.8 mg/dL (0.6-1.4); MAGNESIUM 2.3 mg/dL (1.6-3.0); POTASSIUM 4.5 mmol/L (3.5-5.1); PROTEIN TOTAL SERUM 4.8 g/dL (6.0-8.3)
[2017-04-18 13:30] LABS: DILANTIN (PHENYTOIN) 17.9 ug/mL (10.0-20.0)
[2017-04-18 15:15] LABS: BASOPHIL# 0.1 X10e3 (0-0.3); BASOPHIL% 0.4 % (0-2.5); EOSINOPHIL# 0.1 X10e3 (0-0.7); EOSINOPHIL% 0.4 % (0.0-7.0); HEMATOCRIT 23.2 % (38.0-50.0); HEMOGLOBIN 7.1 gm/dL (13.0-16.0); LYMPHOCYTE# 1.7 X10e3 (1.0-3.5); LYMPHOCYTE% 9.4 % (17.0-45.0); MEAN CELL VOLUME 89.3 FL (83-96); MEAN CORPUSCULAR HEMOGLOBIN 27.3 PG (28-34); MEAN CORPUSCULAR HGB CONC 30.6 g/dL (30-36); MEAN PLATELET VOLUME 8.3 FL (6.5-11.5); MONOCYTE# 2.4 X10e3 (0-1.0); MONOCYTE% 13.3 % (3.0-12.0); NEUTROPHIL# 13.9 X10e3 (1.5-7.1); NEUTROPHIL% 76.5 % (40-75); RED CELL DISTRIBUTION WIDTH 15.8 % (11.0-15.5); WHITE BLOOD COUNT 18.2 X10e3 (4.0-10.5)
[2017-04-18 15:21] LABS: DIFF IND YES; PLATELET COUNT 123 X10e3 (140-420)
[2017-04-18 16:46] LABS: ANISOCYTOSIS MOD; PLATELET ESTIMATE NORMAL (NORMAL); POIKILOCYTOSIS SL
[2017-04-18 21:42] LABS: BUN/CREATININE RATIO 41.66; CALCIUM SERUM 6.8 mg/dL (8.4-10.2); CREATININE SERUM 0.6 mg/dL (0.6-1.4); GLOM FILT RATE Estimated 129.4 mL/min (>60); POTASSIUM 3.4 mmol/L (3.5-5.1)
[2017-04-19 03:49] LABS: ARTERIAL BLD GAS O2 SATURATION 96.6 % (90.0-100.0); ARTERIAL BLOOD GAS CARBOXY HB 0.6 %sat (0.0-9.0); ARTERIAL BLOOD GAS HCO3 21.4 mmol/L; ARTERIAL BLOOD GAS MET HB 1.1 %sat (0.0-2.0); ARTERIAL BLOOD GAS PCO2 40.4 mmHg (35.0-45.0); ARTERIAL BLOOD GAS PO2 97.3 mmHg (80.0-100); ARTERIAL BLOOD GAS pH 7.333 (7.350-7.450)
[2017-04-19 04:02] LABS: ARTERIAL BLOOD GAS ALLEN TEST NORMAL; ARTERIAL BLOOD GAS ART SITE RIGHT RADIAL; ARTERIAL BLOOD GAS DELIVERY VENT; ARTERIAL BLOOD GAS VENT MODE A/C; ARTERIAL DRAW? YES
[2017-04-19 04:42] LABS: BASOPHIL# 0.1 X10e3 (0-0.3); BASOPHIL% 0.4 % (0-2.5); EOSINOPHIL# 0.1 X10e3 (0-0.7); EOSINOPHIL% 0.5 % (0.0-7.0); HEMATOCRIT 21.5 % (38.0-50.0); LYMPHOCYTE# 1.7 X10e3 (1.0-3.5); LYMPHOCYTE% 9.9 % (17.0-45.0); MEAN CELL VOLUME 89.4 FL (83-96); MEAN CORPUSCULAR HEMOGLOBIN 26.8 PG (28-34); MEAN PLATELET VOLUME 8.4 FL (6.5-11.5); MONOCYTE# 1.5 X10e3 (0-1.0); MONOCYTE% 8.8 % (3.0-12.0); NEUTROPHIL# 13.9 X10e3 (1.5-7.1); NEUTROPHIL% 80.4 % (40-75); PLATELET COUNT 110 X10e3 (140-420); RED CELL DISTRIBUTION WIDTH 15.5 % (11.0-15.5); WHITE BLOOD COUNT 17.3 X10e3 (4.0-10.5)
[2017-04-19 04:44] LABS: HEMOGLOBIN 6.4 gm/dL (13.0-16.0)
[2017-04-19 04:45] LABS: DIFF IND NO
[2017-04-19 05:00] LABS: BUN/CREATININE RATIO 36.66; CALCIUM SERUM 6.7 mg/dL (8.4-10.2); CREATININE SERUM 0.6 mg/dL (0.6-1.4); GLOM FILT RATE Estimated 129.4 mL/min (>60); PHOSPHOROUS 2.7 mg/dL (2.5-4.6); POTASSIUM 3.4 mmol/L (3.5-5.1)
[2017-04-19 18:32] LABS: SODIUM URINE RANDOM 174 mmol/L
[2017-04-19 18:51] LABS: OSMOLALITY,URINE 599 mOsmo/kg (250-900)
[2017-04-20 03:51] LABS: ARTERIAL BLD GAS O2 SATURATION 96.4 % (90.0-100.0); ARTERIAL BLOOD GAS CARBOXY HB 0.6 %sat (0.0-9.0); ARTERIAL BLOOD GAS HCO3 22.8 mmol/L; ARTERIAL BLOOD GAS MET HB 1.2 %sat (0.0-2.0); ARTERIAL BLOOD GAS PO2 87.6 mmHg (80.0-100); ARTERIAL BLOOD GAS pH 7.364 (7.350-7.450)
[2017-04-20 04:00] LABS: ARTERIAL BLOOD GAS ALLEN TEST NORMAL; ARTERIAL BLOOD GAS ART SITE RIGHT RADIAL; ARTERIAL BLOOD GAS DELIVERY VENT; ARTERIAL BLOOD GAS VENT MODE A/C; ARTERIAL DRAW? YES
[2017-04-20 11:36] LABS: ALBUMIN SERUM 1.4 g/dL (3.5-5.0); BILIRUBIN,TOTAL 0.9 mg/dL (0.2-2.0); CALCIUM SERUM 7.7 mg/dL (8.4-10.2); CREATININE SERUM 0.5 mg/dL (0.6-1.4); GLOM FILT RATE Estimated 139.5 mL/min (>60); MAGNESIUM 1.5 mg/dL (1.6-3.0); PHOSPHOROUS 2.9 mg/dL (2.5-4.6); POTASSIUM 3.6 mmol/L (3.5-5.1); PROTEIN TOTAL SERUM 4.7 g/dL (6.0-8.3)
[2017-04-20 13:19] LABS: BASOPHIL# 0.1 X10e3 (0-0.3); BASOPHIL% 0.4 % (0-2.5); EOSINOPHIL# 0.3 X10e3 (0-0.7); EOSINOPHIL% 1.2 % (0.0-7.0); LYMPHOCYTE# 1.9 X10e3 (1.0-3.5); LYMPHOCYTE% 7.6 % (17.0-45.0); MEAN CELL VOLUME 88.3 FL (83-96); MEAN CORPUSCULAR HEMOGLOBIN 27.7 PG (28-34); MEAN CORPUSCULAR HGB CONC 31.4 g/dL (30-36); MEAN PLATELET VOLUME 8.9 FL (6.5-11.5); NEUTROPHIL% 82.8 % (40-75); PLATELET COUNT 124 X10e3 (140-420); RED CELL DISTRIBUTION WIDTH 15.6 % (11.0-15.5); WHITE BLOOD COUNT 25.4 X10e3 (4.0-10.5)
[2017-04-20 13:21] LABS: HEMOGLOBIN 9.4 gm/dL (13.0-16.0)
[2017-04-20 13:23] LABS: DIFF IND YES
[2017-04-20 14:36] LABS: PLATELET ESTIMATE NORMAL (NORMAL)
[2017-04-21 05:15] LABS: BASOPHIL# 0.1 X10e3 (0-0.3); BASOPHIL% 0.4 % (0-2.5); EOSINOPHIL# 0.4 X10e3 (0-0.7); HEMOGLOBIN 9.6 gm/dL (13.0-16.0); LYMPHOCYTE# 2.3 X10e3 (1.0-3.5); LYMPHOCYTE% 11.1 % (17.0-45.0); MEAN CELL VOLUME 86.9 FL (83-96); MEAN CORPUSCULAR HEMOGLOBIN 27.7 PG (28-34); MEAN CORPUSCULAR HGB CONC 31.9 g/dL (30-36); MEAN PLATELET VOLUME 8.6 FL (6.5-11.5); MONOCYTE% 9.5 % (3.0-12.0); NEUTROPHIL# 15.9 X10e3 (1.5-7.1); PLATELET COUNT 123 X10e3 (140-420); RED BLOOD COUNT 3.44 X10e (3.90-5.60); RED CELL DISTRIBUTION WIDTH 15.6 % (11.0-15.5); WHITE BLOOD COUNT 20.6 X10e3 (4.0-10.5)
[2017-04-21 05:16] LABS: DIFF IND NO
[2017-04-21 06:59] LABS: ALBUMIN SERUM 1.5 g/dL (3.5-5.0); BILIRUBIN,TOTAL 0.5 mg/dL (0.2-2.0); CALCIUM SERUM 7.2 mg/dL (8.4-10.2); CREATININE SERUM 0.4 mg/dL (0.6-1.4); GLOM FILT RATE Estimated 152.9 mL/min (>60); MAGNESIUM 1.5 mg/dL (1.6-3.0); POTASSIUM 3.1 mmol/L (3.5-5.1); PROTEIN TOTAL SERUM 4.9 g/dL (6.0-8.3)
[2017-04-21 08:48] LABS: ARTERIAL BLD GAS O2 SATURATION 94.2 % (90.0-100.0); ARTERIAL BLOOD GAS ART SITE RIGHT BRACHIAL; ARTERIAL BLOOD GAS CARBOXY HB 0.9 %sat (0.0-9.0); ARTERIAL BLOOD GAS DELIVERY VENT; ARTERIAL BLOOD GAS HCO3 27.2 mmol/L; ARTERIAL BLOOD GAS MET HB 0.5 %sat (0.0-2.0); ARTERIAL BLOOD GAS PCO2 41.7 mmHg (35.0-45.0); ARTERIAL BLOOD GAS PO2 73.1 mmHg (80.0-100); ARTERIAL BLOOD GAS VENT MODE CPAP; ARTERIAL BLOOD GAS pH 7.422 (7.350-7.450); ARTERIAL DRAW? YES
[2017-04-21 16:25] LABS: MAGNESIUM 1.8 mg/dL (1.6-3.0); POTASSIUM 3.5 mmol/L (3.5-5.1)
[2017-04-22 01:26] LABS: BASOPHIL# 0.2 X10e3 (0-0.3); BASOPHIL% 0.7 % (0-2.5); EOSINOPHIL# 0.6 X10e3 (0-0.7); EOSINOPHIL% 2.6 % (0.0-7.0); HEMATOCRIT 32.3 % (38.0-50.0); HEMOGLOBIN 10.4 gm/dL (13.0-16.0); LYMPHOCYTE# 2.2 X10e3 (1.0-3.5); LYMPHOCYTE% 8.9 % (17.0-45.0); MEAN CELL VOLUME 85.8 FL (83-96); MEAN CORPUSCULAR HEMOGLOBIN 27.6 PG (28-34); MEAN CORPUSCULAR HGB CONC 32.2 g/dL (30-36); MEAN PLATELET VOLUME 8.7 FL (6.5-11.5); MONOCYTE% 12.1 % (3.0-12.0); NEUTROPHIL# 18.6 X10e3 (1.5-7.1); NEUTROPHIL% 75.7 % (40-75); PLATELET COUNT 156 X10e3 (140-420); RED BLOOD COUNT 3.76 X10e (3.90-5.60); RED CELL DISTRIBUTION WIDTH 15.8 % (11.0-15.5); WHITE BLOOD COUNT 24.6 X10e3 (4.0-10.5)
[2017-04-22 01:27] LABS: DIFF IND NO
[2017-04-22 01:45] LABS: ALBUMIN SERUM 1.6 g/dL (3.5-5.0); BILIRUBIN,TOTAL 0.2 mg/dL (0.2-2.0); CALCIUM SERUM 6.8 mg/dL (8.4-10.2); CREATININE SERUM 0.3 mg/dL (0.6-1.4); GLOM FILT RATE Estimated 172.1 mL/min (>60); POTASSIUM 3.5 mmol/L (3.5-5.1); PROTEIN TOTAL SERUM 5.3 g/dL (6.0-8.3)
[2017-04-22 06:33] LABS: ARTERIAL BLD GAS O2 SATURATION 92.1 % (90.0-100.0); ARTERIAL BLOOD GAS CARBOXY HB 0.9 %sat (0.0-9.0); ARTERIAL BLOOD GAS HCO3 30.9 mmol/L; ARTERIAL BLOOD GAS MET HB 0.7 %sat (0.0-2.0); ARTERIAL BLOOD GAS PCO2 40.4 mmHg (35.0-45.0); ARTERIAL BLOOD GAS pH 7.492 (7.350-7.450)
[2017-04-22 06:34] LABS: ARTERIAL BLOOD GAS ART SITE RIGHT BRACHIAL; ARTERIAL BLOOD GAS DELIVERY VENT; ARTERIAL BLOOD GAS PO2 65.2 mmHg (80.0-100); ARTERIAL BLOOD GAS VENT MODE AC; ARTERIAL DRAW? YES
[2017-04-22 08:45] LABS: ARTERIAL BLD GAS O2 SATURATION 94.1 % (90.0-100.0); ARTERIAL BLOOD GAS CARBOXY HB 0.7 %sat (0.0-9.0); ARTERIAL BLOOD GAS HCO3 31.8 mmol/L; ARTERIAL BLOOD GAS MET HB 0.7 %sat (0.0-2.0); ARTERIAL BLOOD GAS PCO2 43.5 mmHg (35.0-45.0); ARTERIAL BLOOD GAS pH 7.472 (7.350-7.450)
[2017-04-22 08:46] LABS: ARTERIAL BLOOD GAS ART SITE RIGHT BRACHIAL; ARTERIAL BLOOD GAS DELIVERY VENT; ARTERIAL BLOOD GAS PO2 73.8 mmHg (80.0-100); ARTERIAL BLOOD GAS VENT MODE CPAP; ARTERIAL DRAW? YES
[2017-04-23 04:09] LABS: ARTERIAL BLD GAS O2 SATURATION 96.8 % (90.0-100.0); ARTERIAL BLOOD GAS CARBOXY HB 0.4 %sat (0.0-9.0); ARTERIAL BLOOD GAS HCO3 34.4 mmol/L; ARTERIAL BLOOD GAS MET HB 0.7 %sat (0.0-2.0); ARTERIAL BLOOD GAS PCO2 44.4 mmHg (35.0-45.0); ARTERIAL BLOOD GAS PO2 93.6 mmHg (80.0-100); ARTERIAL BLOOD GAS pH 7.498 (7.350-7.450)
[2017-04-23 04:15] LABS: ARTERIAL BLOOD GAS ART SITE LEFT BRACHIAL; ARTERIAL BLOOD GAS DELIVERY VENT; ARTERIAL BLOOD GAS VENT MODE AC; ARTERIAL DRAW? YES
[2017-04-23 05:02] LABS: BASOPHIL# 0.1 X10e3 (0-0.3); BASOPHIL% 0.4 % (0-2.5); EOSINOPHIL# 0.5 X10e3 (0-0.7); EOSINOPHIL% 1.9 % (0.0-7.0); HEMATOCRIT 30.5 % (38.0-50.0); HEMOGLOBIN 9.8 gm/dL (13.0-16.0); LYMPHOCYTE# 2.6 X10e3 (1.0-3.5); LYMPHOCYTE% 9.5 % (17.0-45.0); MEAN CELL VOLUME 85.9 FL (83-96); MEAN CORPUSCULAR HEMOGLOBIN 27.5 PG (28-34); MEAN CORPUSCULAR HGB CONC 32.1 g/dL (30-36); MEAN PLATELET VOLUME 8.4 FL (6.5-11.5); MONOCYTE# 4.3 X10e3 (0-1.0); MONOCYTE% 15.6 % (3.0-12.0); NEUTROPHIL# 19.9 X10e3 (1.5-7.1); NEUTROPHIL% 72.6 % (40-75); PLATELET COUNT 193 X10e3 (140-420); RED BLOOD COUNT 3.55 X10e (3.90-5.60); RED CELL DISTRIBUTION WIDTH 15.8 % (11.0-15.5); WHITE BLOOD COUNT 27.4 X10e3 (4.0-10.5)
[2017-04-23 05:03] LABS: DIFF IND NO
[2017-04-23 05:32] LABS: CALCIUM SERUM 6.9 mg/dL (8.4-10.2); CREATININE SERUM 0.5 mg/dL (0.6-1.4); GLOM FILT RATE Estimated 139.5 mL/min (>60); MAGNESIUM 1.7 mg/dL (1.6-3.0); POTASSIUM 3.7 mmol/L (3.5-5.1)
[2017-04-24 04:03] LABS: BASOPHIL# 0.1 X10e3 (0-0.3); BASOPHIL% 0.5 % (0-2.5); DIFF IND YES; EOSINOPHIL# 0.9 X10e3 (0-0.7); EOSINOPHIL% 3.3 % (0.0-7.0); HEMATOCRIT 28.9 % (38.0-50.0); HEMOGLOBIN 9.2 gm/dL (13.0-16.0); LYMPHOCYTE# 2.1 X10e3 (1.0-3.5); LYMPHOCYTE% 7.7 % (17.0-45.0); MEAN CELL VOLUME 86.4 FL (83-96); MEAN CORPUSCULAR HEMOGLOBIN 27.5 PG (28-34); MEAN CORPUSCULAR HGB CONC 31.8 g/dL (30-36); MEAN PLATELET VOLUME 8.1 FL (6.5-11.5); MONOCYTE# 4.7 X10e3 (0-1.0); MONOCYTE% 17.4 % (3.0-12.0); NEUTROPHIL# 19.2 X10e3 (1.5-7.1); NEUTROPHIL% 71.1 % (40-75); PLATELET COUNT 261 X10e3 (140-420); RED BLOOD COUNT 3.34 X10e (3.90-5.60)
[2017-04-24 04:04] LABS: ARTERIAL BLD GAS O2 SATURATION 96.6 % (90.0-100.0); ARTERIAL BLOOD GAS CARBOXY HB 0.8 %sat (0.0-9.0); ARTERIAL BLOOD GAS MET HB 1.1 %sat (0.0-2.0); ARTERIAL BLOOD GAS pH 7.429 (7.350-7.450)
[2017-04-24 04:11] LABS: ARTERIAL BLOOD GAS ALLEN TEST NORMAL; ARTERIAL BLOOD GAS ART SITE LEFT RADIAL; ARTERIAL BLOOD GAS DELIVERY VENT; ARTERIAL BLOOD GAS PCO2 63.5 mmHg (35.0-45.0); ARTERIAL BLOOD GAS VENT MODE AC; ARTERIAL DRAW? YES
[2017-04-24 04:20] LABS: ANISOCYTOSIS SL; PLATELET ESTIMATE NORMAL (NORMAL)
[2017-04-24 04:21] LABS: HYPOCHROMIA SL
[2017-04-24 05:13] LABS: CALCIUM SERUM 7.4 mg/dL (8.4-10.2); CREATININE SERUM 0.5 mg/dL (0.6-1.4); GLOM FILT RATE Estimated 139.5 mL/min (>60); MAGNESIUM 1.9 mg/dL (1.6-3.0)
[2017-04-25 04:33] LABS: ARTERIAL BLD GAS O2 SATURATION 96.1 % (90.0-100.0); ARTERIAL BLOOD GAS CARBOXY HB 0.7 %sat (0.0-9.0); ARTERIAL BLOOD GAS HCO3 33.9 mmol/L; ARTERIAL BLOOD GAS MET HB 1.1 %sat (0.0-2.0); ARTERIAL BLOOD GAS PO2 99.5 mmHg (80.0-100); ARTERIAL BLOOD GAS pH 7.359 (7.350-7.450)
[2017-04-25 04:41] LABS: ARTERIAL BLOOD GAS ALLEN TEST NORMAL; ARTERIAL BLOOD GAS ART SITE LEFT RADIAL; ARTERIAL BLOOD GAS PCO2 60.1 mmHg (35.0-45.0); ARTERIAL DRAW? YES
[2017-04-25 04:42] LABS: ARTERIAL BLOOD GAS DELIVERY BIPAP 16/6
[2017-04-25 04:55] LABS: ARTERIAL BLOOD GAS VENT MODE AC
[2017-04-25 04:57] LABS: BASOPHIL# 0.1 X10e3 (0-0.3); BASOPHIL% 0.3 % (0-2.5); EOSINOPHIL# 0.7 X10e3 (0-0.7); EOSINOPHIL% 2.8 % (0.0-7.0); HEMATOCRIT 29.2 % (38.0-50.0); HEMOGLOBIN 8.9 gm/dL (13.0-16.0); LYMPHOCYTE# 2.2 X10e3 (1.0-3.5); MEAN CORPUSCULAR HEMOGLOBIN 27.3 PG (28-34); MEAN CORPUSCULAR HGB CONC 30.6 g/dL (30-36); MEAN PLATELET VOLUME 7.8 FL (6.5-11.5); MONOCYTE# 4.4 X10e3 (0-1.0); MONOCYTE% 17.5 % (3.0-12.0); NEUTROPHIL# 17.6 X10e3 (1.5-7.1); NEUTROPHIL% 70.4 % (40-75); PLATELET COUNT 293 X10e3 (140-420); RED BLOOD COUNT 3.28 X10e (3.90-5.60)
[2017-04-25 04:58] LABS: DIFF IND NO
[2017-04-25 08:07] LABS: ALBUMIN SERUM 1.8 g/dL (3.5-5.0); ALKALINE PHOSPHATASE 234 U/L (32-92); ALT (SGPT) 11 U/L (10-40); AST (SGOT) 19 U/L (10-42); BLOOD UREA NITROGEN 13 mg/dL (9-23); CALCIUM SERUM 7.8 mg/dL (8.4-10.2); CARBON DIOXIDE 31 mmol/L (22-31); CHLORIDE 98 mmol/L (100-111); CREATININE SERUM 0.5 mg/dL (0.6-1.4); GLOM FILT RATE Estimated 139.5 mL/min (>60); GLUCOSE FASTING 117 mg/dL (70-110); MAGNESIUM 1.8 mg/dL (1.6-3.0); POTASSIUM 3.9 mmol/L (3.5-5.1); SODIUM 137 mmol/L (135-145)
[2017-04-25 08:08] LABS: BILIRUBIN,TOTAL <0.1 mg/dL (0.2-2.0)
[2017-04-26 05:45] LABS: BASOPHIL# 0.1 X10e3 (0-0.3); BASOPHIL% 0.3 % (0-2.5); EOSINOPHIL# 0.5 X10e3 (0-0.7); EOSINOPHIL% 2.9 % (0.0-7.0); HEMATOCRIT 30.2 % (38.0-50.0); HEMOGLOBIN 9.3 gm/dL (13.0-16.0); LYMPHOCYTE# 1.7 X10e3 (1.0-3.5); LYMPHOCYTE% 10.6 % (17.0-45.0); MEAN CELL VOLUME 88.9 FL (83-96); MEAN CORPUSCULAR HEMOGLOBIN 27.3 PG (28-34); MEAN CORPUSCULAR HGB CONC 30.7 g/dL (30-36); MEAN PLATELET VOLUME 7.7 FL (6.5-11.5); MONOCYTE# 2.6 X10e3 (0-1.0); MONOCYTE% 16.1 % (3.0-12.0); NEUTROPHIL# 11.2 X10e3 (1.5-7.1); NEUTROPHIL% 70.1 % (40-75); PLATELET COUNT 376 X10e3 (140-420); RED CELL DISTRIBUTION WIDTH 15.8 % (11.0-15.5)
[2017-04-26 05:46] LABS: DIFF IND NO
[2017-04-26 06:26] LABS: ALBUMIN SERUM 1.8 g/dL (3.5-5.0); ALKALINE PHOSPHATASE 268 U/L (32-92); ALT (SGPT) 19 U/L (10-40); AST (SGOT) 46 U/L (10-42); BLOOD UREA NITROGEN 13 mg/dL (9-23); BUN/CREATININE RATIO 21.66; CALCIUM SERUM 7.8 mg/dL (8.4-10.2); CARBON DIOXIDE 31 mmol/L (22-31); CHLORIDE 101 mmol/L (100-111); CREATININE SERUM 0.6 mg/dL (0.6-1.4); GLOM FILT RATE Estimated 129.4 mL/min (>60); GLUCOSE FASTING 149 mg/dL (70-110); MAGNESIUM 1.8 mg/dL (1.6-3.0); POTASSIUM 4.4 mmol/L (3.5-5.1); PROTEIN TOTAL SERUM 6.2 g/dL (6.0-8.3); SODIUM 138 mmol/L (135-145)
[2017-04-26 06:35] LABS: BILIRUBIN,TOTAL <0.1 mg/dL (0.2-2.0)
[2017-04-27 03:49] LABS: ARTERIAL BLD GAS O2 SATURATION 98.3 % (90.0-100.0); ARTERIAL BLOOD GAS CARBOXY HB 0.3 %sat (0.0-9.0); ARTERIAL BLOOD GAS MET HB 0.3 %sat (0.0-2.0); ARTERIAL BLOOD GAS pH 7.394 (7.350-7.450)
[2017-04-27 03:50] LABS: ARTERIAL BLOOD GAS ART SITE RIGHT BRACHIAL; ARTERIAL BLOOD GAS DELIVERY VENT; ARTERIAL BLOOD GAS PCO2 55.7 mmHg (35.0-45.0); ARTERIAL BLOOD GAS VENT MODE AC; ARTERIAL DRAW? YES
[2017-04-27 05:53] LABS: BASOPHIL% 0.2 % (0-2.5); EOSINOPHIL# 0.4 X10e3 (0-0.7); EOSINOPHIL% 3.1 % (0.0-7.0); HEMATOCRIT 26.5 % (38.0-50.0); HEMOGLOBIN 8.2 gm/dL (13.0-16.0); LYMPHOCYTE# 1.8 X10e3 (1.0-3.5); LYMPHOCYTE% 14.8 % (17.0-45.0); MEAN CELL VOLUME 89.3 FL (83-96); MEAN CORPUSCULAR HEMOGLOBIN 27.6 PG (28-34); MEAN CORPUSCULAR HGB CONC 30.9 g/dL (30-36); MONOCYTE# 2.2 X10e3 (0-1.0); MONOCYTE% 17.7 % (3.0-12.0); NEUTROPHIL# 7.8 X10e3 (1.5-7.1); NEUTROPHIL% 64.2 % (40-75); PLATELET COUNT 353 X10e3 (140-420); RED BLOOD COUNT 2.97 X10e (3.90-5.60); RED CELL DISTRIBUTION WIDTH 15.8 % (11.0-15.5); WHITE BLOOD COUNT 12.2 X10e3 (4.0-10.5)
[2017-04-27 06:03] LABS: DIFF IND YES
[2017-04-27 06:59] LABS: PLATELET ESTIMATE NORMAL (NORMAL)
[2017-04-27 07:00] LABS: HYPOCHROMIA SL
[2017-04-28 04:10] LABS: ARTERIAL BLD GAS O2 SATURATION 97.8 % (90.0-100.0); ARTERIAL BLOOD GAS CARBOXY HB 0.6 %sat (0.0-9.0); ARTERIAL BLOOD GAS HCO3 31.7 mmol/L; ARTERIAL BLOOD GAS pH 7.395 (7.350-7.450)
[2017-04-28 04:12] LABS: ARTERIAL BLOOD GAS PCO2 51.8 mmHg (35.0-45.0)
[2017-04-28 04:13] LABS: ARTERIAL BLOOD GAS ALLEN TEST NORMAL; ARTERIAL BLOOD GAS ART SITE RIGHT RADIAL; ARTERIAL BLOOD GAS DELIVERY VENT; ARTERIAL BLOOD GAS VENT MODE AC; ARTERIAL DRAW? YES
[2017-04-28 09:28] LABS: MAGNESIUM 1.6 mg/dL (1.6-3.0); POTASSIUM 3.6 mmol/L (3.5-5.1)
[2017-04-28 16:49] LABS: DILANTIN (PHENYTOIN) 17.3 ug/mL (10.0-20.0)
[2017-04-29 07:06] LABS: BASOPHIL# 0.1 X10e3 (0-0.3); BASOPHIL% 0.4 % (0-2.5); EOSINOPHIL# 0.3 X10e3 (0-0.7); EOSINOPHIL% 2.5 % (0.0-7.0); HEMATOCRIT 26.5 % (38.0-50.0); HEMOGLOBIN 8.4 gm/dL (13.0-16.0); LYMPHOCYTE# 1.9 X10e3 (1.0-3.5); LYMPHOCYTE% 15.7 % (17.0-45.0); MEAN CELL VOLUME 88.4 FL (83-96); MEAN CORPUSCULAR HEMOGLOBIN 28.1 PG (28-34); MEAN CORPUSCULAR HGB CONC 31.8 g/dL (30-36); MEAN PLATELET VOLUME 7.8 FL (6.5-11.5); MONOCYTE# 2.4 X10e3 (0-1.0); MONOCYTE% 20.3 % (3.0-12.0); NEUTROPHIL# 7.3 X10e3 (1.5-7.1); NEUTROPHIL% 61.1 % (40-75); PLATELET COUNT 411 X10e3 (140-420)
[2017-04-29 07:19] LABS: DIFF IND YES
[2017-04-29 07:30] LABS: CALCIUM SERUM 7.9 mg/dL (8.4-10.2); CREATININE SERUM 0.5 mg/dL (0.6-1.4); GLOM FILT RATE Estimated 139.5 mL/min (>60); POTASSIUM 4.2 mmol/L (3.5-5.1)
[2017-04-29 08:24] LABS: ANISOCYTOSIS SL; PLATELET ESTIMATE NORMAL (NORMAL); STOMATOCYTE PRESENT
[2017-04-30 09:14] LABS: ARTERIAL BLD GAS O2 SATURATION 92.8 % (90.0-100.0); ARTERIAL BLOOD GAS ART SITE RIGHT BRACHIAL; ARTERIAL BLOOD GAS CARBOXY HB 0.9 %sat (0.0-9.0); ARTERIAL BLOOD GAS DELIVERY VENT; ARTERIAL BLOOD GAS HCO3 33.5 mmol/L; ARTERIAL BLOOD GAS MET HB 1.1 %sat (0.0-2.0); ARTERIAL BLOOD GAS PCO2 52.4 mmHg (35.0-45.0); ARTERIAL BLOOD GAS PO2 70.6 mmHg (80.0-100); ARTERIAL BLOOD GAS VENT MODE CPAP; ARTERIAL BLOOD GAS pH 7.415 (7.350-7.450); ARTERIAL DRAW? YES
== END 2017-05-01 12:25 | DRG 3 ==
LOC: CED 08:09 → CICCU3 11:00 → C3A PCU 11:00 → CEDOF 11:00 → C3A PCU 11:14 → CED 11:14 → CEDOF 12:26 → C3A PCU 12:26 → CICCU3 04-08 16:25
PROVIDERS: Emergency Medicine; Hospitalist; Internal Medicine; Internal Medicine Cardiovascular Disease; Internal Medicine Infectious Disease; Internal Medicine Nephrology; Nurse Practitioner; Nurse Practitioner Family; Physician Assistant Medical; Psychiatry & Neurology Neurology; Specialist; Surgery
PROC: 3E1M38Z Irrigation of Peritoneal Cavity using Irrigating Substance, Percutaneous Approach (ICD-10-PCS; 2017-04-01)
PROC: 0DW60UZ Revision of Feeding Device in Stomach, Open Approach (ICD-10-PCS; 2017-04-01 15:00)
PROC: 02HV33Z Insertion of Infusion Device into Superior Vena Cava, Percutaneous Approach (ICD-10-PCS; 2017-04-08)
PROC: B548ZZA Ultrasonography of Superior Vena Cava, Guidance (ICD-10-PCS; 2017-04-08)
PROC: 30243N1 Transfusion of Nonautologous Red Blood Cells into Central Vein, Percutaneous Approach (ICD-10-PCS; 2017-04-19)
PROC: 5A1955Z Respiratory Ventilation, Greater than 96 Consecutive Hours (ICD-10-PCS; 2017-04-23)
PROC: 0B110F4 Bypass Trachea to Cutaneous with Tracheostomy Device, Open Approach (ICD-10-PCS; principal; 2017-04-23 09:00)
DX: K94.29 Other complications of gastrostomy (principal); J69.0 Pneumonitis due to inhalation of food and vomit; A41.9 Sepsis, unspecified organism; G93.41 Metabolic encephalopathy; G40.814 Lennox-Gastaut syndrome, intractable, without status epilepticus; E72.20 Disorder of urea cycle metabolism, unspecified; J96.10 Chronic respiratory failure, unspecified whether with hypoxia or hypercapnia; K66.8 Other specified disorders of peritoneum; J96.01 Acute respiratory failure with hypoxia; J96.02 Acute respiratory failure with hypercapnia; N39.0 Urinary tract infection, site not specified; F72 Severe intellectual disabilities; K92.2 Gastrointestinal hemorrhage, unspecified; E87.0 Hyperosmolality and hypernatremia; B96.5 Pseudomonas (aeruginosa) (mallei) (pseudomallei) as the cause of diseases classified elsewhere; Z16.12 Extended spectrum beta lactamase (ESBL) resistance; G80.9 Cerebral palsy, unspecified; Z51.5 Encounter for palliative care; R13.10 Dysphagia, unspecified; E83.42 Hypomagnesemia; E83.51 Hypocalcemia; D64.9 Anemia, unspecified; Z66 Do not resuscitate; Z88.1 Allergy status to other antibiotic agents; Z88.2 Allergy status to sulfonamides; Z88.8 Allergy status to other drugs, medicaments and biological substances
CPT/HCPCS: 36415; 36600; 70450; 71010; 74000; 74020; 74176; 74245; 74250; 80048; 80053; 80076; 80164; 80184; 80185; 80186; 80200; 80202; 81003; 82140; 82274; 82308; 82803; 82947; 83605; 83735; 83880; 83935; 84100; 84132; 84300; 84443; 85025; 85027; 86850; 86900; 86901; 86923; 87040; 87070; 87077; 87086; 87186; 87205; 93005; 94002; 94003; 94760; 94761; 95816; 99285; C9113; C9254; J0330; J0610; J0692; J0695; J0696; J1165; J1450; J1940; J1953; J2060; J2185; J2248; J2250; J2270; J2405; J2560; J2710; J2765; J2997; J3010; J3260; J3370; J3475; J3490; P9016; Q9968